=== PATIENT | male | born 1980 | race Caucasian/White ===

== ENCOUNTER 2022-09-21 07:39 | Outpatient (REF) | payer OTHER, SELFPAY ==
[2022-09-21 11:23] LABS: MANUAL DIFF FLAG NO
[2022-09-21 11:33] LABS: Appearance Urine Clear; Color Urine Yellow; Glucose Urine UA Negative (Negative); Leukocyte Esterase Urine Negative (Negative); Nitrite Urine Negative (Negative); PH 5.5 (5.0-9.0); Specific Gravity - Urine 1.025 (1.005-1.025); Urine Blood Negative (Negative); Urine Ketones Negative (Negative); Urine Protein Negative (Neg-Trace)
[2022-09-21 11:41] LABS: Basophils Percent Auto 0.8 % (0-2); Eosinophils Absolute Auto 0.2 X10*3/uL (0.0-0.4); Eosinophils Percent Auto 4.4 % (0-4); Hematocrit 46.4 % (42.0-52.0); Hemoglobin 15.2 g/dl (14.0-18.0); Imm Gran Abs Auto 0.02 X10*3/uL (0.00-0.03); Imm Gran Pct Auto 0.4 % (0.0-0.4); Lymphocytes Percent Auto 41.3 % (20-40); Mean Corpuscular HGB Conc 32.8 g/dl (31.0-36.0); Mean Corpuscular Hemoglobin 29.1 pg (27.0-33.0); Mean Corpuscular Volume 88.9 fL (80.0-98.0); Monocytes Absolute Auto 0.5 X10*3/uL (0.1-1.2); Monocytes Percent Auto 10.9 % (2-11); Neutrophils Percent Auto 42.2 % (45-73); Platelet Count 199 X10*3/uL (160-400); Red Blood Count 5.22 X10*6/uL (4.60-5.80); Red Cell Distribution Width 13.2 % (11.0-16.0); White Blood Count 4.8 X10*3/uL (4.8-10.8)
[2022-09-21 12:47] LABS: Alanine Aminotransferase 28 U/L (0-40); Albumin Level 4.4 g/dL (3.5-5.0); Alkaline Phosphatase 44 U/L (39-117); Anion Gap 10 (12-20); Aspartate Amino Transferase 19 U/L (5-37); Bilirubin Total 0.6 mg/dL (0.0-1.0); Blood Urea Nitrogen 26 mg/dL (9-16); Carbon Dioxide 24 mmol/L (22-29); Chloride 109 mmol/L (96-108); Cholesterol 274 mg/dL; Estimated Glomerular Filt Rate > 60; Glucose Fasting 104 mg/dL (60-99); HDL Cholesterol 59 mg/dL; LDL Cholesterol Calculated 197 mg/dl; Potassium 4.3 mmol/L (3.3-5.1); Sodium 139 mmol/L (135-145); Total Protein 6.7 g/dL (6.5-8.0); Triglycerides 92 mg/dL
== END 2022-09-21 07:40 | disposition home or self-care (01) ==
LOC: HO.HMGCLDS 07:39
PROVIDERS: PCP Nurse Practitioner Family; Visit Provider Nurse Practitioner Family
DX: Z00.00 Encounter for general adult medical examination without abnormal findings (principal)
CPT/HCPCS: 36415; 80053; 80061; 81003; 84443; 85025

== ENCOUNTER 2023-03-22 08:06 | Outpatient (REF) | payer OTHER, SELFPAY ==
[2023-03-22 11:48] LABS: Alanine Aminotransferase 26 U/L (0-40); Albumin Level 4.2 g/dL (3.5-5.0); Alkaline Phosphatase 51 U/L (39-117); Anion Gap 9 (12-20); Aspartate Amino Transferase 19 U/L (5-37); Bilirubin Total 0.7 mg/dL (0.0-1.0); Blood Urea Nitrogen 25 mg/dL (9-16); Carbon Dioxide 23 mmol/L (22-29); Chloride 111 mmol/L (96-108); Cholesterol 255 mg/dL; Estimated Glomerular Filt Rate > 60; Glucose Fasting 103 mg/dL (60-99); HDL Cholesterol 54 mg/dL; LDL Cholesterol Calculated 176 mg/dl; Potassium 4.3 mmol/L (3.3-5.1); Sodium 139 mmol/L (135-145); Total Protein 6.5 g/dL (6.5-8.0); Triglycerides 128 mg/dL
== END 2023-03-22 08:07 | disposition home or self-care (01) ==
LOC: HO.HMGCLDS 08:06
PROVIDERS: PCP Nurse Practitioner Family; Visit Provider Nurse Practitioner Family
DX: E78.5 Hyperlipidemia, unspecified (principal)
CPT/HCPCS: 36415; 80053; 80061

== ENCOUNTER 2023-05-31 16:37 | Outpatient (AMB) | payer OTHER, SELFPAY ==
--- NOTE | 2023-05-31 16:31 | A.OFFPC_ITS ---
Vital Signs 05/31/23 16:41 05/31/23 18:09 Height 6 ft 4 in Weight 213 lb 6 oz BMI 26.0 BP 140/92 H 138/84 Blood Pressure Location Rt brachial Position Sitting Pulse 73 Pulse Source Pulse Oximeter Pulse Oximetry (%) 96 Oxygen Delivery Method Room Air Intake Visit Reasons: Annual Physical Allergies No Known Allergies Allergy (Unverified 05/31/23 16:43) Medication List - Last [facility] 800 mg PO Q8H Tobacco use date assessed: 05/31/23 Dental Screening Dental Screen Date: 05/31/23 Did you have a dental visit in the last 12 months?: Yes Did you have a dental problem in the last 6 months where you did not have access to dental care?: No Was dental information given to patient?: Patient has dentist HPI Annual Physical HPI Details Pt is here for a PE. Will order labs. Hx of dyslipidemia: reordering labs to reassess. spoke with pt about role of statins, will await results PFSH Family History Father Hypertension Mother Hypertension Brother Testicular cancer Social History Housing: House Alcohol intake: current Alcohol intake frequency: a few times a week Alcohol type: beer Patient Tobacco Use Status: Current everyday Tobacco user Tobacco use type: Cigarette Cigarette Packs Per Day: 1 Cigarettes Per Day: 20 e-Cigarette/Vaping Use: Never Used Current occupational status: employed Cognitive needs: No Hearing needs: No Vision needs: No Questionnaire Thrive Questionnaire Date Thrive assessed: 12/08/22 DIANE-7 AMB Questionnaire DIANE-7 Date DIANE - 7 assessed: 12/08/22 Source: Developed by Drs. Shiv Walton, Theodora Mccoy, Huseyin Maciel and colleagues, with an educational alee from [employer]. Review of Systems Const Denies chills and Denies fever(s) Eyes Denies blurry vision ENT Denies vertigo, Denies dizziness and Denies sore throat Card Denies chest pain at rest, Denies chest pain with activity, Denies diaphoresis, Denies dyspnea and Denies dyspnea on exertion Resp Denies cough, Denies dyspnea, Denies dyspnea on exertion and Denies wheezing GI Denies abdominal pain, Denies melena, Denies hematochezia, Denies constipation, Denies diarrhea and Denies loose stools Denies hematuria Musc Denies numbness and Denies tingling Skin/Breast Denies lesions Neuro Denies vertigo, Denies dizziness, Denies numbness and Denies tingling Psych Denies anxiety, Denies depression, Denies homicidal ideation, Denies suicidal ideation and Denies other (substance abuse) Aller/Immun Denies wheezing Physical exam (Primary Care) Vital Signs: Last Vital Signs Pulse 73 05/31/23 16:41 BP 140/92 H 05/31/23 16:41 Pulse Ox 96 05/31/23 16:41 Oxygen Delivery Method Room Air 05/31/23 16:41 BMI result Body Mass Index 26.0 Tobacco/Smoking Status: Tobacco use Status Tobacco use date assessed 05/31/23 05/31/23 16:46 Patient Tobacco Use Status Current everyday Tobacco 05/31/23 16:31 Tobacco use type Cigarette 05/31/23 16:31 e-Cigarette/Vaping Use Never Used 05/31/23 16:31 Thrive Assessment: Date of Thrive Assessment Date Thrive assessed 12/08/22 05/31/23 16:31 Const General: cooperative Nutritional Appearance: well nourished Orientation/consciousness: patient oriented x3 HENMT Head: Yes normal to inspection, Yes normocephalic and Yes atraumatic Ears: TM's normal bilaterally Eyes General: appearance normal, both eyes and all related structures Alignment and Position: alignment normal and position normal Neck Neck: Yes normal visual inspection and Yes no lymphadenopathy Thyroid: Thyroid normal Resp Effort & Inspection: normal respiratory effort Auscultation: clear to auscultation bilaterally Cardio Rate: regular rate Rhythm: regular rhythm Heart sounds: S1 normal heart sound present, S2 normal heart sound present and no murmurs GI Palpation (GI): Soft to palpation and nontender Auscultation: normal bowel sounds Male General Exam: Yes normal external exam Penis: normal penis Scrotum: scrotum normal, testes descended bilaterally and no inguinal hernias Testes: no testicular mass Skin Rashes: no rashes Neuro General: patient oriented x3, moves all extremities, no focal motor deficits and deep tendon reflexes 2+ bilaterally Romberg Test: Negative Psych Appearance: grossly normal Mental Status: mental status grossly normal Speech and movement: Normal speech and movement present Affect: normal affect Attitude: cooperative Thought process: Normal thought process present Thought content: Normal thought content present Insight: Good insight present (Psych) Judgement: Good judgement present (Psych) Assessment and Plan Assessment & Plan (1) Physical exam: Code(s): Z00.00 - Encounter for general adult medical examination without abnormal findings (2) Smoker: Comment: counselled on the dangers of smoking and ways to quit Code(s): F17.200 - Nicotine dependence, unspecified, uncomplicated Orders: Orders Comprehensive [place]. Panel Fast Today Z00.00 - Encounter for general adult medical examination without abnormal findings Lipid Panel Today Z00.00 - Encounter for general adult medical examination without abnormal findings TSH reflex Free T4 Today Z00.00 - Encounter for general adult medical examination without abnormal findings Complete Blood Count Auto Diff Today Z00.00 - Encounter for general adult medical examination without abnormal findings UA CC w/rflx Micro + Cult Today Z00.00 - Encounter for general adult medical examination without abnormal findings Coding Level of Care Code Est Pt Prev Care 40-64y(91057) Diagnoses Physical exam Z00.00 Smoker F17.200
[2023-05-31 16:41] VITALS: BP 140/92; PULSE 73; O2SAT 96; BMI 26.0
[2023-05-31 18:09] VITALS: BP 138/84
== END 2023-05-31 17:02 | disposition home or self-care (01) ==
PROVIDERS: Visit Provider Nurse Practitioner Family
DX: Z00.00 Encounter for general adult medical examination without abnormal findings (principal); F17.200 Nicotine dependence, unspecified, uncomplicated
CPT/HCPCS: 99396

== ENCOUNTER 2024-02-21 08:32 | Outpatient (REF) | payer OTHER, SELFPAY ==
[2024-02-21 10:27] LABS: MANUAL DIFF FLAG NO
[2024-02-21 10:28] LABS: Appearance Urine Clear; Color Urine Yellow; Glucose Urine UA Negative (Negative); Leukocyte Esterase Urine Negative (Negative); Nitrite Urine Negative (Negative); Specific Gravity - Urine >= 1.030 (1.005-1.025); Urine Blood Negative (Negative); Urine Ketones Negative (Negative); Urine Protein Negative (Neg-Trace)
[2024-02-21 10:42] LABS: Basophils Percent Auto 0.6 % (0-2); Eosinophils Absolute Auto 0.2 X10*3/uL (0.0-0.4); Eosinophils Percent Auto 4.1 % (0-4); Hematocrit 43.4 % (42.0-52.0); Hemoglobin 14.7 g/dl (14.0-18.0); Imm Gran Abs Auto 0.02 X10*3/uL (0.00-0.03); Imm Gran Pct Auto 0.4 % (0.0-0.4); Lymphocytes Percent Auto 40.7 % (20-40); Mean Corpuscular HGB Conc 33.9 g/dl (31.0-36.0); Mean Corpuscular Hemoglobin 29.9 pg (27.0-33.0); Mean Corpuscular Volume 88.2 fL (80.0-98.0); Mean Platelet Volume 11.3 fL (9.4-12.4); Monocytes Absolute Auto 0.5 X10*3/uL (0.1-1.2); Monocytes Percent Auto 10.8 % (2-11); Neutrophils Absolute Auto 2.1 x10*3/uL (2.0-8.3); Neutrophils Percent Auto 43.4 % (45-73); Platelet Count 179 X10*3/uL (160-400); Red Blood Count 4.92 X10*6/uL (4.60-5.80); Red Cell Distribution Width 13.3 % (11.0-16.0); White Blood Count 4.9 X10*3/uL (4.8-10.8)
[2024-02-21 11:24] LABS: Alanine Aminotransferase 26 U/L (0-40); Albumin Level 4.2 g/dL (3.5-5.0); Alkaline Phosphatase 47 U/L (39-117); Anion Gap 12 (12-20); Aspartate Amino Transferase 18 U/L (5-37); Bilirubin Total 0.6 mg/dL (0.0-1.0); Blood Urea Nitrogen 27 mg/dL (9-16); Calcium 9.1 mg/dL (8.4-10.2); Carbon Dioxide 21 mmol/L (22-29); Chloride 110 mmol/L (96-108); Cholesterol 226 mg/dL (<200); Estimated Glomerular Filt Rate > 60; Glucose Fasting 106 mg/dL (60-99); HDL Cholesterol 52 mg/dL (>40); LDL Cholesterol Calculated 155 mg/dL (<100); Potassium 4.3 mmol/L (3.3-5.1); Sodium 139 mmol/L (135-145); Total Protein 6.7 g/dL (6.5-8.0); Triglycerides 98 mg/dL (<150)
== END 2024-02-21 08:33 | disposition home or self-care (01) ==
LOC: HO.HMGCLDS 08:32
PROVIDERS: PCP Nurse Practitioner Family; Visit Provider Nurse Practitioner Family
DX: Z00.00 Encounter for general adult medical examination without abnormal findings (principal); E78.5 Hyperlipidemia, unspecified
CPT/HCPCS: 36415; 80053; 80061; 81003; 84443; 85025

== ENCOUNTER 2024-05-28 12:33 | Outpatient (AMB) | payer OTHER, SELFPAY ==
[2024-05-28 12:34] VITALS: BP 120/78; PULSE 78; O2SAT 98; BMI 27.5
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
== END 2024-05-28 13:46 | disposition home or self-care (01) ==
PROVIDERS: PCP Nurse Practitioner Family; Visit Provider Nurse Practitioner Family
DX: S32.402A Unspecified fracture of left acetabulum, initial encounter for closed fracture (principal); S72.002A Fracture of unspecified part of neck of left femur, initial encounter for closed fracture; S72.06 Articular fracture of head of femur; Z04.3 Encounter for examination and observation following other accident; S22.31XA Fracture of one rib, right side, initial encounter for closed fracture; S82.001A Unspecified fracture of right patella, initial encounter for closed fracture; S61.210A Laceration without foreign body of right index finger without damage to nail, initial encounter
CPT/HCPCS: 99214

== ENCOUNTER 2024-06-28 14:13 | Outpatient (AMB) | payer OTHER, SELFPAY ==
--- NOTE | 2024-06-28 14:15 | MHC.OFFWIV ---
Intake Vital Signs 06/28/24 14:21 Height 6 ft 4 in Weight 226 lb BMI 27.5 BP 126/80 Blood Pressure Location Rt brachial Position Sitting Pulse 87 Pulse Source Pulse Oximeter Pulse Oximetry (%) 98 Oxygen Delivery Method Room Air Intake Visit Reasons: EP-body rash Intake Note: Patient here for rash in groin that has been present for a few weeks. Patient Tobacco Use Status: Current everyday Tobacco user Allergies No Known Allergies Allergy (Verified 06/28/24 14:20) Do you need a note to return to daycare/school/sports/work: No HPI HPI Comments History of Present Illness Details Patient is a 44-year-old male complaining of a couple of weeks of a itchy burning rash in his groin area. States he just had knee surgery and hip surgery and has been in the hospital and sitting around a lot and did not have a shower for a week so he feels like that is how the rash started, he thinks it is a heat rash and he put some triamcinolone cream on it which seemed to help a little bit but it is still itchy and burning. He denies any fevers [facility] Medical History (Updated 06/28/24 @ 14:47 by Akilah Leiva PA-C) Closed displaced articular fracture of head of femur Laceration of right index finger Pneumomediastinum Rib fracture Right patella fracture Hip fracture, left Finger laceration Facial laceration Surgical History (Updated 05/28/24 @ 13:55 by EDOUARD Barboza) History of total left hip replacement Family History Father Hypertension Mother Hypertension Brother Testicular cancer Social History Housing: House Alcohol intake: current Alcohol intake frequency: a few times a week Alcohol type: beer Patient Tobacco Use Status: Current everyday Tobacco user Tobacco use type: Cigarette Cigarette Packs Per Day: 1 Cigarettes Per Day: 20 e-Cigarette/Vaping Use: Never Used Current occupational status: employed Cognitive needs: No Hearing needs: No Vision needs: No Review of Systems Const All systems reviewed & are unremarkable except as noted in HPI and below Physical Exam Vital Signs: Last Vital Signs Pulse 87 06/28/24 14:21 BP 126/80 06/28/24 14:21 Pulse Ox 98 06/28/24 14:21 Oxygen Delivery Method Room Air 06/28/24 14:21 BMI result Body Mass Index 27.5 Const General: cooperative, healthy appearing, comfortable, no acute distress and well developed Orientation/consciousness: patient oriented x3 Limitations: no limitations HEENT Head: Yes normal to inspection Ears: hearing grossly normal bilaterally General nose exam: Normal external nose present Face and sinus: Yes normal facial exam Eyes General: appearance normal, both eyes and all related structures Neck Neck: Yes normal visual inspection and Yes full ROM Resp Effort & Inspection: normal respiratory effort and able to speak in complete sentences Skin Other: Bilateral inguinal area has a flat erythematous area extending onto the thighs Neuro General: patient oriented x3 Extrem General: Yes normal to inspection Assessment & Plan Assessment & Plan (1) Tinea cruris: Code(s): B35.6 - Tinea cruris Plan: Recommending after the shower that he dry the area thoroughly and then apply miconazole powder, he could also use the cream if he chooses. Twice daily, educated patient that it could take a while for this to go away but he should be consistent and persistent with the miconazole. If it does not go away or if it gets worse, he should follow up with his PCP. Plan See above Coding Level of Care Code Est Pt Level 3 (37718) Diagnoses Tinea cruris B35.6
[2024-06-28 14:21] VITALS: BP 126/80; PULSE 87; O2SAT 98; BMI 27.5
== END 2024-06-28 14:45 | disposition home or self-care (01) ==
PROVIDERS: PCP Nurse Practitioner Family; Visit Provider Physician Assistant
DX: B35.6 Tinea cruris (principal)
CPT/HCPCS: 99213

== ENCOUNTER 2024-07-08 16:09 | Outpatient (AMB) | payer OTHER, SELFPAY ==
[2024-07-08 16:11] VITALS: BP 130/80; PULSE 82; O2SAT 98; BMI 27.9
--- NOTE | 2024-07-08 16:11 | A.OFFPC_ITS ---
Vital Signs 07/08/24 16:11 Height 6 ft 4 in Weight 229 lb BMI 27.9 BP 130/80 Blood Pressure Location Rt brachial Position Sitting Pulse 82 Pulse Source Pulse Oximeter Pulse Oximetry (%) 98 Intake Visit Reasons: PE Intake Note: pt is here for his PE Travel Nurse Required: No Accompanied by: Self / Same As Patient Allergies No Known Allergies Allergy (Verified 07/08/24 17:00) Medication List - Last Reconciled 07/08/24 by EDOUARD Barboza baclofen 20 mg PO TID 30 days gabapentin 600 mg (2 x 300 mg) PO Q8H PRN 30 days ibuprofen 800 mg PO Q8H PRN 30 days Tobacco use date assessed: 05/28/24 Dental Screening Dental Screen Date: 05/28/24 HPI PE HPI Details Pt is here for a PE. Will order labs. Due for colon screen, will refer to GI. Pt is following up with ortho. He reports that his LLE is longer than his RLE. He is unable to fully extend at his left knee when his RLE is fully extended, has to keep some left knee flexion to balance. Pt reports ongoing lower back pain. He denies radicular symptoms down his lower extremities. Will order XR. Denies any signs of cauda equina. Pt also reports ongoing left hip and right knee pain (recent surgerys) [facility] Medical History Closed displaced articular fracture of head of femur Laceration of right index finger Pneumomediastinum Rib fracture Right patella fracture Hip fracture, left Finger laceration Facial laceration Surgical History History of total left hip replacement Family History Father Hypertension Mother Hypertension Brother Testicular cancer Social History Housing: House Alcohol intake: current Alcohol intake frequency: a few times a week Alcohol type: beer Patient Tobacco Use Status: Current everyday Tobacco user Tobacco use type: Cigarette Cigarette Packs Per Day: 1 Cigarettes Per Day: 20 e-Cigarette/Vaping Use: Never Used Current occupational status: employed Cognitive needs: No Hearing needs: No Vision needs: No Questionnaire PHQ-9 Over the last 2 weeks, how often have you been bothered by any of the following problems? 1. Little interest or pleasure in doing things: not at all 2. Feeling down, depressed, or hopeless: not at all 3. Trouble falling or staying asleep, or sleeping too much: several days 4. Feeling tired or having little energy: several days 5. Poor appetite or overeating: not at all 6. Feeling bad about yourself - or that you are a failure or have let yourself or your family down: not at all 7. Trouble concentrating on things, such as reading the newspaper or watching television: not at all 8. Moving or speaking so slowly that other people could have noticed. Or the opposite - being so fidgety or restless that you have been moving around a lot more than usual: not at all 9. Thoughts that you would be better off or of hurting yourself in some way: not at all Total score: 2 Depression Screening Interpretation: Negative Depression Screening Done: Yes [id number] - PHQ-9 Billing: Yes Source: Developed by Drs. Shiv Walton, Theodora Mccoy, Huseyin Maciel and colleagues, with an educational alee from [employer]. Thrive Questionnaire Date Thrive assessed: 07/08/24 I am a: Patient What is your living situation today?: I have a steady place to live Within the past 12 months, did the food you bought not last and you didn't have the money to get more?: Never true Within the past 12 months, did you worry whether your food would run out before you got money to buy more?: Never true Do you have trouble paying for medicines?: No Do you have trouble getting transportation to medical appointments?: No Do you have trouble paying your heating and electricity bill?: No Do you have trouble taking care of your child, family member or friend?: No Do you have trouble with day-to-day activities such as bathing, preparing meals, shopping, managing finances, etc.?: No Are you currently unemployed and looking for a job?: No Are you interested in more education?: No Please select the resources that you would like help with: None Currently or been in a relationship where the following occur: No concerns reported THRIVE Score: 0 DIANE-7 AMB Questionnaire DIANE-7 Date DIANE - 7 assessed: 05/28/24 Source: Developed by Drs. Shiv Walton, Theodora Mccoy, Huseyin Maciel and colleagues, with an educational alee from [employer]. Review of Systems Const Denies chills and Denies fever(s) Eyes Denies blurry vision ENT Denies vertigo, Denies dizziness and Denies sore throat Card Denies chest pain at rest, Denies chest pain with activity, Denies diaphoresis, Denies dyspnea and Denies dyspnea on exertion Resp Denies cough, Denies dyspnea, Denies dyspnea on exertion and Denies wheezing GI Denies abdominal pain, Denies melena, Denies hematochezia, Denies constipation, Denies diarrhea and Denies loose stools Denies hematuria Musc Denies numbness and Denies tingling Skin/Breast Denies lesions Neuro Denies vertigo, Denies dizziness, Denies numbness and Denies tingling Psych Denies anxiety, Denies depression, Denies homicidal ideation, Denies suicidal ideation and Denies other (substance abuse) Aller/Immun Denies wheezing Physical exam (Primary Care) Vital Signs: Last Vital Signs Pulse 82 07/08/24 16:11 BP 130/80 07/08/24 16:11 Pulse Ox 98 07/08/24 16:11 BMI result Body Mass Index 27.9 Tobacco/Smoking Status: Tobacco use Status Tobacco use date assessed 05/28/24 07/08/24 16:15 Patient Tobacco Use Status Current everyday Tobacco 07/08/24 16:15 Tobacco use type Cigarette 07/08/24 16:15 e-Cigarette/Vaping Use Never Used 07/08/24 16:15 PHQ-9: PHQ-9 Score PHQ-9: Total score 2 07/08/24 16:30 Depression Screening Interpretation: Negative Thrive Assessment: Date of Thrive Assessment Date Thrive assessed 07/08/24 07/08/24 16:18 Currently or been in a relationship where the following occur: No concerns reported Const Other: using cane General: cooperative Nutritional Appearance: well nourished Orientation/consciousness: patient oriented x3 Limitations: ambulation with cane HENMT Head: Yes normal to inspection, Yes normocephalic and Yes atraumatic Ears: TM's normal bilaterally Eyes General: appearance normal, both eyes and all related structures Alignment and Position: alignment normal and position normal Neck Neck: Yes normal visual inspection, Yes no lymphadenopathy and Yes supple Resp Effort & Inspection: normal respiratory effort Auscultation: clear to auscultation bilaterally Cardio Rate: regular rate Rhythm: regular rhythm Heart sounds: S1 normal heart sound present, S2 normal heart sound present and no murmurs GI Palpation (GI): Soft to palpation and nontender Auscultation: normal bowel sounds Male General Exam: Yes normal external exam Penis: normal penis Scrotum: scrotum normal, testes descended bilaterally and no inguinal hernias Testes: no testicular mass Skin Rashes: no rashes Neuro General: patient oriented x3, moves all extremities, no focal motor deficits and deep tendon reflexes 2+ bilaterally Romberg Test: Negative Extrem Other: right index finger MCP joint slightly swollen, able to make a fist, scar to left hip, well approximated, scar to anterior aspect of right knee, slight swelling Psych Appearance: grossly normal Mental Status: mental status grossly normal Speech and movement: Normal speech and movement present Affect: normal affect Attitude: cooperative Thought process: Normal thought process present Thought content: Normal thought content present Insight: Good insight present (Psych) Judgement: Good judgement present (Psych) Assessment and Plan Assessment & Plan (1) Encounter for routine adult physical exam with abnormal findings: Code(s): Z00.01 - Encounter for general adult medical examination with abnormal findings Plan: Labs ordered (2) Screening for colon cancer: Code(s): Z12.11 - Encounter for screening for malignant neoplasm of colon Plan: Referred to GI (3) Lower back pain: Code(s): M54.50 - Low back pain, unspecified Plan: XR ordered (4) Hip fracture, left: Code(s): S72.002A - Fracture of unspecified part of neck of left femur, initial encounter for closed fracture Plan: follow up with ortho (5) Closed displaced articular fracture of head of femur: Code(s): S72.063A - Displaced articular fracture of head of unspecified femur, initial encounter for closed fracture Plan: follow up with ortho (6) Laceration of right index finger: Code(s): S61.210A - Laceration without foreign body of right index finger without damage to nail, initial encounter Plan: full ROM noted, able to make a fist Plan The patient agreed to the use of a biomedical manager for this encounter. Scribed for SU Felipe-BRENT by Macey Lazcano biomedical manager, on 07/08/2024 at 16:30 EST. Orders: Orders UA CC w/rflx Micro + Cult Today Z00.01 - Encounter for general adult medical examination with abnormal findings Lipid Panel Today Z00.01 - Encounter for general adult medical examination with abnormal findings XR lumbar spine 2-3V Today M54.50 - Low back pain, unspecified Complete Blood Count Auto Diff Today Z00.01 - Encounter for general adult medical examination with abnormal findings Comprehensive [place]. Panel Fast Today Z00.01 - Encounter for general adult medical examination with abnormal findings TSH reflex Free T4 Today Z00.01 - Encounter for general adult medical examination with abnormal findings Referrals Gastroenterology Referral Z12.11 - Encounter for screening for malignant neoplasm of colon Coding Level of Care Code Est Pt Prev Care 40-64y([id number]) Diagnoses Encounter for routine adult physical exam with abnormal findings Z00.01 Screening for colon cancer Z12.11 Lower back pain M54.50 Hip fracture, left S72.002A Closed displaced articular fracture of head of femur S72.063A Laceration of right index finger S61.210A
== END 2024-07-08 16:52 | disposition home or self-care (01) ==
PROVIDERS: PCP Nurse Practitioner Family; Visit Provider Nurse Practitioner Family
DX: Z00.00 Encounter for general adult medical examination without abnormal findings (principal); S72.002A Fracture of unspecified part of neck of left femur, initial encounter for closed fracture; S72.06 Articular fracture of head of femur; S61.210A Laceration without foreign body of right index finger without damage to nail, initial encounter; Z12.11 Encounter for screening for malignant neoplasm of colon; M54.50 Low back pain, unspecified

== ENCOUNTER → 2024-07-08 16:09 | Outpatient (BNVA) | payer OTHER, SELFPAY | PROVIDERS: PCP Nurse Practitioner Family; Visit Provider Nurse Practitioner Family | DX: Z00.01 Encounter for general adult medical examination with abnormal findings (principal); M54.50 Low back pain, unspecified; S72.002A Fracture of unspecified part of neck of left femur, initial encounter for closed fracture; S72.06 Articular fracture of head of femur; S61.210A Laceration without foreign body of right index finger without damage to nail, initial encounter | CPT/HCPCS: 96127 ==

== ENCOUNTER 2024-09-09 10:44 | Outpatient (REF) | payer OTHER, SELFPAY ==
[2024-09-09 13:27] LABS: MANUAL DIFF FLAG NO
[2024-09-09 13:34] LABS: Basophils Percent Auto 0.9 % (0-2); Eosinophils Absolute Auto 0.2 X10*3/uL (0.0-0.4); Eosinophils Percent Auto 4.6 % (0-4); Hematocrit 47.9 % (42.0-52.0); Imm Gran Abs Auto 0.01 X10*3/uL (0.00-0.03); Imm Gran Pct Auto 0.2 % (0.0-0.4); Lymphocytes Percent Auto 43.2 % (20-40); Mean Corpuscular HGB Conc 33.4 g/dl (31.0-36.0); Mean Corpuscular Hemoglobin 27.9 pg (27.0-33.0); Mean Corpuscular Volume 83.4 fL (80.0-98.0); Mean Platelet Volume 11.1 fL (9.4-12.4); Monocytes Absolute Auto 0.5 X10*3/uL (0.1-1.2); Monocytes Percent Auto 9.9 % (2-11); Neutrophils Absolute Auto 1.9 x10*3/uL (2.0-8.3); Neutrophils Percent Auto 41.2 % (45-73); Platelet Count 172 X10*3/uL (160-400); Red Blood Count 5.74 X10*6/uL (4.60-5.80); Red Cell Distribution Width 14.2 % (11.0-16.0); White Blood Count 4.6 X10*3/uL (4.8-10.8)
[2024-09-09 14:03] LABS: Alanine Aminotransferase 29 U/L (0-40); Albumin Level 4.4 g/dL (3.5-5.0); Alkaline Phosphatase 69 U/L (39-117); Anion Gap 12 (12-20); Aspartate Amino Transferase 20 U/L (5-37); Bilirubin Total 0.7 mg/dL (0.0-1.0); Blood Urea Nitrogen 23 mg/dL (9-16); Calcium 9.5 mg/dL (8.4-10.2); Carbon Dioxide 23 mmol/L (22-29); Chloride 107 mmol/L (96-108); Estimated Glomerular Filt Rate > 60; Glucose Random 95 mg/dL (60-115); Potassium 3.7 mmol/L (3.3-5.1); Sodium 138 mmol/L (135-145); Total Protein 6.8 g/dL (6.5-8.0)
[2024-09-09 14:19] LABS: TSH reflex Free T4 0.85 uIU/mL (0.32-4.0)
[2024-09-10 13:03] LABS: Lyme Blot 5.07 index
[2024-09-10 23:53] LABS: A. Phagocytphilium DNA,RT-PCR NOT DETECTED (NOT DETECTED); Babesia Microti DNA, RT-PCR NOT DETECTED (NOT DETECTED); Borrelia Miyamotoi,DNA RT-PCR NOT DETECTED (NOT DETECTED); E.Chaffeensis DNA RT-PCR NOT DETECTED (NOT DETECTED); Lyme(Borrelia ssp)DNA RT-PCR NOT DETECTED (NOT DETECTED)
[2024-09-11 09:07] LABS: Lyme Abs Screen POSITIVE
[2024-09-11 17:32] LABS: 18 KD (IgG) Band REACTIVE; 23 KD (IgG) Band REACTIVE; 23 KD (IgM) Band REACTIVE; 28 KD (IgG) Band NON-REACTIVE; 30 KD (IgG) Band NON-REACTIVE; 39 KD (IgM) Band NON-REACTIVE; 39KD (IgG) Band REACTIVE; 41 KD (IgM) Band NON-REACTIVE; 41KD (IgG) Band REACTIVE; 45 KD (IgG) Band NON-REACTIVE; 58 KD (IgG) Band REACTIVE; 66 KD (IgG) Band NON-REACTIVE; 93 KD (IgG) Band NON-REACTIVE; Lyme IgG Blot Interp POSITIVE (NEGATIVE); Lyme IgM Blot Interp NEGATIVE (NEGATIVE)
== END 2024-09-09 10:45 | disposition home or self-care (01) ==
LOC: HO.HMGCLDS 10:44
PROVIDERS: PCP Nurse Practitioner Family; Visit Provider Nurse Practitioner Family
DX: R53.83 Other fatigue (principal)
CPT/HCPCS: 36415; 80053; 84443; 85025; 86617; 86618; 87468; 87469; 87478; 87484; 87798

== ENCOUNTER 2024-09-30 14:05 | Outpatient (AMB) | payer OTHER, SELFPAY ==
--- OUTSIDE RECORDS SUMMARY | 2024-09-30 14:10 | XMS_ITS ---
Author Name [facility] Organization Unknown Results Test Name/Text Value Interpretation Date Range Source Magnesium SerPl-mCnc 2.3mg/dL Normal [id number] 1.6 - 2.7 [facility] Phosphate SerPl-mCnc 4.4mg/dL Normal [id number] 2.7 - 4.5 [facility] Calcium SerPl-mCnc 8.4mg/dL Below low normal [id number] 8 .7 - 10.5 [facility] BUN SerPl-mCnc 18mg/dL Normal [id number] 8 - 21 HH CCT Creat SerPl-mCnc 0.8mg/dL Normal [id number] 0.5 - 1.3 [facility] GFR/BSA.pred SerPlBld BLY-BZJ-WwSOxa 90 Normal [id number] 59 - [facility] Chloride SerPl-sCnc 103mmol/L Normal [id number] 98 - 10 7 [facility] BUN/Creat SerPl 23Ratio Normal [id number] 10 - 25 H [facility] CO2 SerPl-sCnc 25mmol/L Normal [id number] 22 - 33 HH CCT Anion Gap Bld-sCnc 9 Normal [id number] 7 - 17 [facility] Potassium SerPl-sCnc 4.2mmol/L Normal [id number] 3.4 - 5.3 [facility] Glucose SerPl-mCnc 112mg/dL Above high normal [id number] 65 - 99 [facility] Sodium SerPl-sCnc 137mmol/L Normal [id number] 136 - 145 [facility] RBC num Bld Auto 2.46Mil/uL Below low normal [id number] 4. 5 - 6.2 [facility] RDW RBC Auto-Rto 13.8% Normal [id number] 11.5 - 14. 5 [facility] PMV Bld Auto 10.2fL Normal [id number] 7.5 - 12.[address] MCH RBC Qn Auto 29.3pg Normal [id number] 26 - 34 H [facility] WBC num Bld Auto 5.9Thou/uL Normal [id number] 4 - 11 [facility] Platelet num Bld Auto 211Thou/uL Normal [id number] 150 - 450 [facility] MCHC RBC Auto-mCnc 33.3g/dL Normal [id number] 30 - 36 [facility] Hct VFr Bld Auto 21.6% Below low normal [id number] 39 - 54 [facility] MCV RBC Auto 88fL Normal [id number] 80 - 100 [facility] T Hgb Bld-mCnc 7.2g/dL Below low normal [id number] 13 - 17 .7 [facility] RBC num Bld Auto 2.37Mil/uL Below low normal [id number] 4. 5 - 6.2 [facility] RDW RBC Auto-Rto 13.9% Normal [id number] 11.5 - 14. 5 [facility] PMV Bld Auto 10.9fL Normal [id number] 7.5 - 12.[address] MCH RBC Qn Auto 30pg Normal [id number] 26 - 34 H [facility] WBC num Bld Auto 6.3Thou/uL Normal [id number] 4 - 11 [facility] Platelet num Bld Auto 199Thou/uL Normal [id number] 150 - 450 [facility] MCHC RBC Auto-mCnc 32.7g/dL Normal [id number] 30 - 36 [facility] Hct VFr Bld Auto 21.7% Below low normal [id number] 39 - 54 [facility] MCV RBC Auto 92fL Normal [id number] 80 - 100 [facility] T Hgb Bld-mCnc 7.1g/dL Below low normal [id number] 13 - 17 .7 [facility] RBC num Bld Auto 2.42Mil/uL Below low normal [id number] 4. 5 - 6.2 [facility] RDW RBC Auto-Rto 13.8% Normal [id number] 11.5 - 14. 5 [facility] PMV Bld Auto 10.2fL Normal [id number] 7.5 - 12.[address] MCH RBC Qn Auto 29.8pg Normal [id number] 26 - 34 H [facility] WBC num Bld Auto 7.6Thou/uL Normal [id number] 4 - 11 [facility] Platelet num Bld Auto 187Thou/uL Normal [id number] 150 - 450 [facility]CT MCHC RBC Auto-mCnc 33g/dL Normal [id number] 30 - 36 [facility] Hct VFr Bld Auto 21.8% Below low normal [id number] 39 - 54 [facility]CT MCV RBC Auto 90fL Normal [id number] 80 - 100 [facility] T Hgb Bld-mCnc 7.2g/dL Below low normal [id number] 13 - 17 .7 [facility] RBC num Bld Auto 2.52Mil/uL Below low normal [id number] 4. 5 - 6.2 [facility] RDW RBC Auto-Rto 13.4% Normal [id number] 11.5 - 14. 5 [facility] PMV Bld Auto 10.6fL Normal [id number] 7.5 - 12.[address] MCH RBC Qn Auto 29.8pg Normal [id number] 26 - 34 H [facility]CT WBC num Bld Auto 8.4Thou/uL Normal [id number] 4 - 11 [facility] Platelet num Bld Auto 155Thou/uL Normal [id number] 150 - 450 [facility]CT MCHC RBC Auto-mCnc 33.2g/dL Normal [id number] 30 - 36 [facility] Hct VFr Bld Auto 22.6% Below low normal [id number] 39 - 54 [facility] MCV RBC Auto 90fL Normal [id number] 80 - 100 [facility] T Hgb Bld-mCnc 7.5g/dL Below low normal [id number] 13 - 17 .7 [facility]CT Phosphate SerPl-mCnc 2.7mg/dL Normal [id number] 2.7 - 4.5 [facility]CT Calcium SerPl-mCnc 7.8mg/dL Below low normal [id number] 8 .7 - 10.5 [facility]CT BUN SerPl-mCnc 14mg/dL Normal [id number] 8 - 21 HH CCT Creat SerPl-mCnc 0.9mg/dL Normal [id number] 0.5 - 1.3 [facility]CT GFR/BSA.pred SerPlBld ETR-TIC-LoLMts 90 Normal [id number] 59 - HHCCT Chloride SerPl-sCnc 107mmol/L Normal [id number] 98 - 10 7 [facility]CT BUN/Creat SerPl 16Ratio Normal [id number] 10 - 25 H [facility]CT CO2 SerPl-sCnc 26mmol/L Normal [id number] 22 - 33 HH CCT Anion Gap Bld-sCnc 8 Normal [id number] 7 - 17 [facility]CT Potassium SerPl-sCnc 3.9mmol/L Normal [id number] 3.4 - 5.3 [facility] Glucose SerPl-mCnc 130mg/dL Above high normal [id number] 65 - 99 [facility] Sodium SerPl-sCnc 141mmol/L Normal [id number] 136 - 145 [facility]CT Magnesium SerPl-mCnc 2.4mg/dL Normal [id number] 1.6 - 2.7 [facility]CT RBC num Bld Auto 2.7Mil/uL Below low normal [id number] 4.5 - 6.2 [facility]CT RDW RBC Auto-Rto 13.6% Normal [id number] 11.5 - 14. 5 [facility]CT PMV Bld Auto 10.5fL Normal [id number] 7.5 - 12.[address] MCH RBC Qn Auto 29.6pg Normal [id number] 26 - 34 H HCCT WBC num Bld Auto 8.9Thou/uL Normal [id number] 4 - 11 [facility] Platelet num Bld Auto 161Thou/uL Normal [id number] 150 - 450 [facility]CT MCHC RBC Auto-mCnc 33.3g/dL Normal [id number] 30 - 36 [facility]CT Hct VFr Bld Auto 24% Below low normal [id number] 39 - 54 [facility]CT MCV RBC Auto 89fL Normal [id number] 80 - 100 [facility] T Hgb Bld-mCnc 8g/dL Below low normal [id number] 13 - 17 .7 [facility]CT Phosphate SerPl-mCnc 2.8mg/dL Normal [id number] 2.7 - 4.5 [facility]CT Calcium SerPl-mCnc 7.9mg/dL Below low normal [id number] 8 .7 - 10.5 [facility]CT BUN SerPl-mCnc 15mg/dL Normal [id number] 8 - 21 HH CCT Creat SerPl-mCnc 0.9mg/dL Normal [id number] 0.5 - 1.3 [facility]CT GFR/BSA.pred SerPlBld TPF-PWF-YvMInf 90 Normal [id number] 59 - HHCCT Chloride SerPl-sCnc 104mmol/L Normal [id number] 98 - 10 7 [facility]CT BUN/Creat SerPl 17Ratio Normal [id number] 10 - 25 H HCCT CO2 SerPl-sCnc 24mmol/L Normal [id number] 22 - 33 HH CCT Anion Gap Bld-sCnc 9 Normal [id number] 7 - 17 [facility]CT Potassium SerPl-sCnc 4.2mmol/L Normal [id number] 3.4 - 5.3 [facility]CT Glucose SerPl-mCnc 154mg/dL Above high normal [id number] 65 - 99 [facility]CT Sodium SerPl-sCnc 137mmol/L Normal [id number] 136 - 145 [facility]CT Phosphate SerPl-mCnc 2.5mg/dL Below low normal [id number] 2.7 - 4.5 [facility]CT Magnesium SerPl-mCnc 2.1mg/dL Normal [id number] 1.6 - 2.7 [facility]CT RBC num Bld Auto 3.06Mil/uL Below low normal [id number] 4. 5 - 6.2 [facility]CT RDW RBC Auto-Rto 13.2% Normal [id number] 11.5 - 14. 5 [facility] PMV Bld Auto 11.2fL Normal [id number] 7.5 - 12.[address] MCH RBC Qn Auto 29.7pg Normal [id number] 26 - 34 H HCCT WBC num Bld Auto 8.7Thou/uL Normal [id number] 4 - 11 [facility] Platelet num Bld Auto 136Thou/uL Below low normal [id number] 150 - 450 [facility]CT MCHC RBC Auto-mCnc 33.5g/dL Normal [id number] 30 - 36 [facility]CT Hct VFr Bld Auto 27.2% Below low normal [id number] 39 - 54 [facility]CT MCV RBC Auto 89fL Normal [id number] 80 - 100 [facility] T Hgb Bld-mCnc 9.1g/dL Below low normal [id number] 13 - 17 .7 H[facility]CT Result Normal [id number] - [facility]CT Calcium SerPl-mCnc 8.4mg/dL Below low normal [id number] 8 .7 - 10.5 [facility]CT BUN SerPl-mCnc 16mg/dL Normal [id number] 8 - 21 HH CCT Creat SerPl-mCnc 1mg/dL Normal [id number] 0.5 - 1.3 [facility]CT GFR/BSA.pred SerPlBld LUH-JPO-SjQDeh 90 Normal [id number] 59 - HHCCT Chloride SerPl-sCnc 103mmol/L Normal [id number] 98 - 10 7 H[facility]CT BUN/Creat SerPl 16Ratio Normal [id number] 10 - 25 H HCCT CO2 SerPl-sCnc 24mmol/L Normal [id number] 22 - 33 HH CCT Anion Gap Bld-sCnc 8 Normal [id number] 7 - 17 [facility]CT Potassium SerPl-sCnc 4.1mmol/L Normal [id number] 3.4 - 5.3 [facility]CT Glucose SerPl-mCnc 111mg/dL Above high normal [id number] 65 - 99 [facility]CT Sodium SerPl-sCnc 135mmol/L Below low normal [id number] 13 6 - 145 H[facility]CT INR PPP 1 Normal [id number] HHCCT Prothrombin time 11.5seconds Normal [id number] 10 - 13. 5 [facility] RBC num Bld Auto 4.02Mil/uL Below low normal [id number] 4. 5 - 6.2 [facility]CT RDW RBC Auto-Rto 13.4% Normal [id number] 11.5 - 14. 5 [facility]CT PMV Bld Auto 11fL Normal [id number] 7.5 - 12.[address] MCH RBC Qn Auto 29.4pg Normal [id number] 26 - 34 H HCCT WBC num Bld Auto 7.5Thou/uL Normal [id number] 4 - 11 [facility]CT Platelet num Bld Auto 139Thou/uL Below low normal [id number] 150 - 450 [facility]CT MCHC RBC Auto-mCnc 32.8g/dL Normal [id number] 30 - 36 HHCCT Hct VFr Bld Auto 36% Below low normal [id number] 39 - 54 H[facility]CT MCV RBC Auto 90fL Normal [id number] 80 - 100 [facility] T Hgb Bld-mCnc 11.8g/dL Below low normal [id number] 13 - 17 .7 HHCCT Anticoagulant OTHER AGENT OR UNKNOWN Normal [id number] HHCCT 25(OH)D3 SerPl-mCnc 19ng/mL Below low normal [id number] 30 - 100 [facility]CT Calcium SerPl-mCnc 8.2mg/dL Below low normal [id number] 8 .7 - 10.5 H[facility]CT BUN SerPl-mCnc 19mg/dL Normal [id number] 8 - 21 HH CCT Creat SerPl-mCnc 1mg/dL Normal 0.5 - 1.3 HHCCT GFR/BSA.pred SerPlBld QRX-COM-NrIFyc 90 Normal [id number] 59 - HHCCT Chloride SerPl-sCnc 106mmol/L Normal [id number] 98 - 10 7 H[facility]CT BUN/Creat SerPl 19Ratio Normal [id number] 10 - 25 H HCCT CO2 SerPl-sCnc 21mmol/L Below low normal [id number] 22 - 33 HHCCT Anion Gap Bld-sCnc 12 Normal [id number] 7 - 17 H[facility]CT Potassium SerPl-sCnc 4mmol/L Normal [id number] 3.4 - 5.3 H[facility]CT Glucose SerPl-mCnc 130mg/dL Above high normal [id number] 65 - 99 [facility]CT Sodium SerPl-sCnc 139mmol/L Normal [id number] 136 - 145 H[facility]CT Transferrin SerPl-mCnc 207mg/dL Normal [id number] 200 - 360 H[facility]CT Prealb SerPl-mCnc 23mg/dL Normal [id number] 20 - 40 HHCCT Albumin SerPl-mCnc 3.8g/dL Normal 3.5 - 5 HHCCT INR PPP 1.1 Normal [id number] HHCCT Prothrombin time 12.1seconds Normal [id number] 10 - 13. 5 HHCCT Neutrophils num Bld Auto 6.3Thou/uL Normal [id number] 2 - 7.5 HHCCT Eosinophil/leuk NFr Bld Auto 0.1% Normal [id number] HHCCT Monocytes num Bld Auto 1.01Thou/uL Normal [id number] 0.2 - 1.5 HHCCT Eosinophil num Bld Auto 0.01Thou/uL Normal [id number] 0 - 0.7 HHCCT Basophils/leuk NFr Bld Auto 0.2% Normal [id number] HHCCT Basophils num Bld Auto 0.02Thou/uL Normal [id number] 0 - 0.2 H[facility]CT Neutrophils/leuk NFr Bld Auto 71.5% Normal [id number] HHCCT Monocytes/leuk NFr Bld Auto 11.5% Normal [id number] HHCCT Lymphocytes/leuk NFr Bld Auto 16.5% Normal [id number] HHCCT Lymphocytes num Bld Auto 1.45Thou/uL Below low normal [id number] 1.5 - 4.5 HHCCT Imm Granulocytes/leuk NFr Bld Auto 0.2% Normal [id number] HHCCT Imm Granulocytes num Bld Auto 0.02Thou/uL Normal [id number] 0 - 0.1 H[facility]CT RBC num Bld Auto 4.34Mil/uL Below low normal [id number] 4. 5 - 6.2 H[facility]CT RDW RBC Auto-Rto 13.5% Normal [id number] 11.5 - 14. 5 H[facility]CT PMV Bld Auto 10.9fL Normal [id number] 7.5 - 12.[address] MCH RBC Qn Auto 29.7pg Normal [id number] 26 - 34 H HCCT WBC num Bld Auto 8.8Thou/uL Normal [id number] 4 - 11 [facility]CT Platelet num Bld Auto 159Thou/uL Normal [id number] 150 - 450 [facility]CT MCHC RBC Auto-mCnc 33.2g/dL Normal [id number] 30 - 36 HHCCT Hct VFr Bld Auto 38.9% Below low normal [id number] 39 - 54 HHCCT MCV RBC Auto 90fL Normal [id number] 80 - 100 [facility] T Hgb Bld-mCnc 12.9g/dL Below low normal [id number] 13 - 17 .7 HHCCT Anticoagulant OTHER AGENT OR UNKNOWN Normal [id number] HHCCT Lactate SerPl-sCnc 1.6mmol/L Normal 0.5 - 1. 9 HHCCT Globulin Ser Calc-mCnc 2.3g/dL Normal 1.5 - 3.9 HHCCT ALT SerPl-cCnc 80U/L Above high normal 10 - 55 HHCCT AST SerPl-cCnc 80U/L Above high normal 10 - 55 HHCCT GFR/BSA.pred SerPlBld ILL-NHT-ReXTzi 90 Normal 59 - HHCCT Albumin SerPl-mCnc 4g/dL Normal 3.5 - 5 HHCCT Albumin/Glob SerPl 1.7Ratio Normal 1 - 3 HHCCT Creat SerPl-mCnc 0.9mg/dL Normal 0.5 - 1.3 HHCCT Bilirub SerPl-mCnc 0.4mg/dL Normal 0.2 - 1 HHCCT Anion Gap Bld-sCnc 12 Normal 7 - 17 HHCCT Sodium SerPl-sCnc 139mmol/L Normal 136 - 145 HHCCT Potassium SerPl-sCnc 4.7mmol/L Normal 3.4 - 5.3 HHCCT Chloride SerPl-sCnc 107mmol/L Normal 98 - 10 7 HHCCT Glucose SerPl-mCnc 122mg/dL Above high normal 65 - 99 HHCCT Prot SerPl-mCnc 6.3g/dL Normal 6.3 - 8.3 H HCCT BUN/Creat SerPl 23Ratio Normal 10 - 25 H HCCT Calcium SerPl-mCnc 8.6mg/dL Below low normal 8 .7 - 10.5 HHCCT CO2 SerPl-sCnc 20mmol/L Below low normal 22 - 33 HHCCT BUN SerPl-mCnc 21mg/dL Normal [id number] 8 - 21 HH CCT ALP SerPl-cCnc 47U/L Normal [id number] 45 - 128 HH CCT Imm Granulocytes/leuk NFr Bld Auto 0.4% Normal [id number] HHCCT Lymphocytes/leuk NFr Bld Auto 4.9% Normal [id number] HHCCT PMV Bld Auto 11.5fL Normal [id number] 7.5 - 12.[address] Monocytes num Bld Auto 1.07Thou/uL Normal [id number] 0.2 - 1.5 HHCCT Hct VFr Bld Auto 41.2% Normal [id number] 39 - 54 HHCCT Neutrophils num Bld Auto 10.15Thou/uL Above high normal [id number] 2 - 7.5 HHCCT Neutrophils/leuk NFr Bld Auto 85.6% Normal [id number] HHCCT Basophils/leuk NFr Bld Auto 0.1% Normal [id number] HHCCT Basophils num Bld Auto 0.01Thou/uL Normal [id number] 0 - 0.2 HHCCT Monocytes/leuk NFr Bld Auto 9% Normal [id number] HHCCT Eosinophil num Bld Auto 0Thou/uL Normal [id number] 0 - 0.7 HHCCT MCH RBC Qn Auto 29.9pg Normal [id number] 26 - 34 H HCCT Eosinophil/leuk NFr Bld Auto 0% Normal [id number] HHCCT Imm Granulocytes num Bld Auto 0.05Thou/uL Normal [id number] 0 - 0.1 HHCCT RDW RBC Auto-Rto 13.6% Normal [id number] 11.5 - 14. 5 H[facility]CT Platelet num Bld Auto 185Thou/uL Normal [id number] 150 - 450 H[facility]CT MCHC RBC Auto-mCnc 33.7g/dL Normal [id number] 30 - 36 HHCCT MCV RBC Auto 89fL Normal [id number] 80 - 100 [facility] T WBC num Bld Auto 11.9Thou/uL Above high normal [id number] 4 - 11 HHCCT RBC num Bld Auto 4.65Mil/uL Normal [id number] 4.5 - 6.2 HHCCT Hgb Bld-mCnc 13.9g/dL Normal [id number] 13 - 17.7 HHCC T Lymphocytes num Bld Auto 0.58Thou/uL Below low normal [id number] 1.5 - 4.5 HHCCT POC Glucose 135mg/dL Above high normal 65 - 99 HHCCT Oxycodone Ur Ql Scn Normal - HHCCT fentaNYL+Norfentanyl Ur Ql Scn Abnormal - HHCCT Opiates Ur Ql Scn>300 ng/mL Normal - CCT Barbiturates Ur Ql Scn>200 ng/mL Normal - HHCCT BZE Ur Ql Normal - HHCCT Benzodiaz Ur Ql Scn>200 ng/mL Normal - CCT Cannabinoids Ur Ql Scn>50 ng/mL Abnormal - HHCCT Amphetamines Ur Ql Normal - HHCCT WBC num/area UrnS HPF 1perhpf Normal [id number] 0 - 4 HHCCT RBC num/area UrnS HPF 10perhpf Above high normal [id number] 0 - 4 HHCCT Ketones Ur Strip-mCnc Normal [id number] - HHCCT Prot Ur Strip-mCnc Abnormal [id number] - HHCCT Glucose Ur Strip-mCnc Normal [id number] - HHCCT Nitrite Ur Ql Strip Normal [id number] - HHCCT Leukocyte esterase Ur Ql Strip Normal [id number] - HHCCT Bilirub Ur Strip-mCnc Normal [id number] - HHCCT Sp Gr Ur Strip 1.02 Normal [id number] 1.003 - 1.03 HHCCT pH Ur Strip 6 Normal [id number] 5 - 8 HHCCT Color Ur Normal [id number] HHCCT Clarity Ur Normal [id number] HHCCT Hgb Ur Ql Strip Abnormal [id number] - H HCCT Globulin Ser Calc-mCnc 2.5g/dL Normal [id number] 1.5 - 3.9 HHCCT ALT SerPl-cCnc 91U/L Above high normal [id number] 10 - 55 HHCCT AST SerPl-cCnc 80U/L Above high normal [id number] 10 - 55 HHCCT GFR/BSA.pred SerPlBld QUP-PGI-SoTWtu 60 Normal 59 - HHCCT Albumin SerPl-mCnc 4.7g/dL Normal 3.5 - 5 HHCCT Albumin/Glob SerPl 1.9Ratio Normal HHCCT Creat SerPl-mCnc 1mg/dL Normal 0.5 - 1.3 HHCCT Bilirub SerPl-mCnc 0.5mg/dL Normal 0.2 - 1 HHCCT Anion Gap Bld-sCnc 13 Normal 7 - 17 HHCCT Sodium SerPl-sCnc 141mmol/L Normal 136 - 145 HHCCT Potassium SerPl-sCnc 4mmol/L Normal 3.4 - 5.3 HHCCT Chloride SerPl-sCnc 107mmol/L Normal 98 - 10 7 HHCCT Glucose SerPl-mCnc 169mg/dL Above high normal 65 - 99 HHCCT Prot SerPl-mCnc 7.2g/dL Normal 6.3 - 8.3 H HCCT BUN/Creat SerPl 24Ratio Normal 10 - 25 H HCCT Calcium SerPl-mCnc 9.2mg/dL Normal 8.7 - 10 .5 HHCCT CO2 SerPl-sCnc 21mmol/L Below low normal 22 - 33 HHCCT BUN SerPl-mCnc 24mg/dL Above high normal 8 - 21 HHCCT ALP SerPl-cCnc 54U/L Normal 45 - 128 HH CCT Imm Granulocytes/leuk NFr Bld Auto 1% Normal HHCCT Lymphocytes/leuk NFr Bld Auto 34.7% Normal [id number] HHCCT PMV Bld Auto 11fL Normal 7.5 - 12.[address] Monocytes num Bld Auto 0.58Thou/uL Normal 0.2 - 1.5 HHCCT Hct VFr Bld Auto 48.2% Normal 39 - 54 HHCCT Neutrophils num Bld Auto 3.64Thou/uL Normal 2 - 7.5 HHCCT Neutrophils/leuk NFr Bld Auto 52.9% Normal HHCCT Basophils/leuk NFr Bld Auto 0.7% Normal HHCCT Basophils num Bld Auto 0.05Thou/uL Normal 0 - 0.2 HHCCT Monocytes/leuk NFr Bld Auto 8.4% Normal HHCCT Eosinophil num Bld Auto 0.16Thou/uL Normal 0 - 0.7 HHCCT MCH RBC Qn Auto 29.9pg Normal 26 - 34 H HCCT Eosinophil/leuk NFr Bld Auto 2.3% Normal HHCCT Imm Granulocytes num Bld Auto 0.07Thou/uL Normal 0 - 0.1 HHCCT RDW RBC Auto-Rto 13.4% Normal 11.5 - 14. 5 H[facility]CT Platelet num Bld Auto 211Thou/uL Normal 150 - 450 HHCCT MCHC RBC Auto-mCnc 33.2g/dL Normal 30 - 36 HHCCT MCV RBC Auto 90fL Normal 80 - 100 [facility] T WBC num Bld Auto 6.9Thou/uL Normal 4 - 11 HHCCT RBC num Bld Auto 5.36Mil/uL Normal 4.5 - 6.2 HHCCT Hgb Bld-mCnc 16g/dL Normal 13 - 17.7 HH[facility] T Lymphocytes num Bld Auto 2.39Thou/uL Normal 1.5 - 4.5 HHCCT History of Medication Use Medication Directions Dispensed Refills Start Date End Date Stat baclofen (LIORESAL) 20 MG tablet Take 1 tablet (20 mg total) by mouth every 8 (eight) hours around the clock. 05/24/2024 active acetaminophen (TYLENOL) 325 MG tablet Take 3 tablets (975 mg total) by mouth every 6 (six) hours around the clock. 05/24/2024 active enoxaparin (LOVENOX) 40 MG/0.4ML injection Inject 0.4 mL (40 mg total) under the skin every 12 (twelve) hours around the clock. 05/24/2024 active lidocaine (LIDODERM) 5 % patch Place 1 patch on the skin daily. Apply patch and leave on for 12 hours then remove. Patch may remain on skin for 12 hours per day. 05/24/2024 active gabapentin (NEURONTIN) 600 MG tablet Take 1 tablet (600 mg total) by mouth every 8 (eight) hours around the clock. 05/24/2024 active senna-docusate (SENNA-S) 8.6-50 MG Take 1 tablet by mouth nightly. 05/24/2024 active bisacodyl (DULCOLAX) 10 MG suppository Insert 1 suppository (10 mg total) into the rectum daily as needed for constipation. 05/24/2024 active multivitamin with minerals Tab tablet Take 1 tablet by mouth daily. 05/24/2024 active magnesium hydroxide (MILK OF MAGNESIA) 400 mg/5 mL suspension Take 30 mL by mouth daily as needed for constipation. 05/24/2024 active ondansetron (ZOFRAN) 4 MG/2ML injection Infuse 2 mL (4 mg total) into a venous catheter 4 times daily (every 6 hours) as needed for nausea or vomiting. 05/24/2024 active polyethylene glycol 17 g packet Take 1 packet (17 g total) by mouth 2 times a day. 05/24/2024 active tiZANidine (ZANAFLEX) 2 MG tablet Take 1 tablet (2 mg total) by mouth every 8 (eight) hours around the clock. 05/24/2024 active naloxone (NARCAN) 0.4 mg/mL injection Infuse 1 mL (0.4 mg total) into a venous catheter every 5 (five) minutes as needed for opioid reversal or respiratory depression. 05/24/2024 active ferrous sulfate 325 (65 FE) MG EC tablet Take 1 tablet (325 mg total) by mouth 2 (two) times a day. Take 2 hours before or 4 hours after acid reducers. 05/24/2024 active HYDROmorphone (DILAUDID) 4 MG tablet Take 1 tablet (4 mg total) by mouth every 3 (three) hours as needed for severe pain. Max Daily Amount: 32 mg 05/24/2024 active HYDROmorphone (DILAUDID) 2 MG tablet Take 1 tablet (2 mg total) by mouth every 3 (three) hours as needed for moderate pain. Max Daily Amount: 16 mg 05/24/2024 active Problems Problem Status Onset Date Problem Type Date of Resolution Source Pneumomediastinum active 2024-05-04 ProblemAct [facility] Transaminitis active 2024-05-04 ProblemAct [facility] Closed disp articular fracture of head of left femur with malunion active 2024-05-04 ProblemAct [facility] Right knee pain, unspecified chronicity active En[facility]Diagnosis[facility] Fracture of multiple ribs of right side active 2024-05-04 ProblemAct [facility] Closed fracture of left acetabulum active 2024-05-04 ProblemAct [facility] Closed fracture dislocation of left hip joint active 2024-05-04 ProblemAct [facility] Laceration of finger of right hand active 2024-05-04 ProblemAct [facility] Other closed fracture of right patella with routine healing, subsequent encounter active EncounterDiagnosisAct [facility] Right patella fracture active 2024-05-04 ProblemAct [facility] Immunizations Vaccine Date Source Lot Number Status Tdap 05/04/2024 [facility] [id number] completed
[2024-09-30 14:12] VITALS: BP 138/80; PULSE 82; O2SAT 97; BMI 28.2
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
== END 2024-09-30 16:43 | disposition home or self-care (01) ==
PROVIDERS: PCP Nurse Practitioner Family; Visit Provider Nurse Practitioner Family
DX: S82.001A Unspecified fracture of right patella, initial encounter for closed fracture (principal); S32.402A Unspecified fracture of left acetabulum, initial encounter for closed fracture; S61.210A Laceration without foreign body of right index finger without damage to nail, initial encounter; S72.06 Articular fracture of head of femur; M54.50 Low back pain, unspecified; V89.2XXA Person injured in unspecified motor-vehicle accident, traffic, initial encounter

== ENCOUNTER → 2024-09-30 14:05 | Outpatient (BNVA) | payer OTHER, SELFPAY | PROVIDERS: PCP Nurse Practitioner Family; Visit Provider Nurse Practitioner Family ==

== ENCOUNTER 2024-11-07 16:02 | Outpatient (AMB) | payer OTHER, SELFPAY ==
[2024-11-07 16:03] VITALS: BP 136/80; PULSE 83; RESP 16; TEMP 36.6; O2SAT 97; BMI 28.0
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
== END 2024-11-07 16:44 | disposition home or self-care (01) ==
PROVIDERS: PCP Nurse Practitioner Family; Visit Provider Nurse Practitioner Family
DX: S60.459A Superficial foreign body of unspecified finger, initial encounter (principal)

== ENCOUNTER 2024-11-07 16:02 | Outpatient (REF) | payer OTHER, SELFPAY ==
--- NOTE | ~2024-11-07 | XR_ITS ---
CLINICAL HISTORY: S60.459A - Superficial foreign body of unspecified finger, initial encou... 3 view right index finger Comparison: None Findings: Bones intact. No dislocations. No significant arthritic change. No erosions. Opaque foreign body of the base of the finger IMPRESSION: 1. Opaque foreign body in base of index finger This document has been electronically signed by: Martin Alexis MD on 11/09/2024 07:42:06
--- NOTE | ~2024-11-07 | XR_ITS ---
CLINICAL HISTORY: M54.50 - Low back pain, unspecified 3 views lumbar spine Comparison: None Findings: Normal alignment. No acute fractures or dislocation. There is severe degenerative disc changes at L4-L5. IMPRESSION: No acute findings. This document has been electronically signed by: Martin Alexis MD on 11/09/2024 07:40:17
== END 2024-11-07 16:03 | disposition home or self-care (01) ==
LOC: HO.HMGCX 16:02
PROVIDERS: PCP Nurse Practitioner Family; Visit Provider Nurse Practitioner Family
DX: S60.450A Superficial foreign body of right index finger, initial encounter (principal); M54.50 Low back pain, unspecified; V89.2XXA Person injured in unspecified motor-vehicle accident, traffic, initial encounter; Y93.9 Activity, unspecified; Y92.9 Unspecified place or not applicable; Y99.9 Unspecified external cause status
CPT/HCPCS: 72100; 73140; 96127

== ENCOUNTER → 2024-11-07 16:44 | Outpatient (BNV) | payer OTHER, SELFPAY | PROVIDERS: PCP Nurse Practitioner Family; Visit Provider Specialist | DX: M54.50 Low back pain, unspecified (principal); S60.450A Superficial foreign body of right index finger, initial encounter | CPT/HCPCS: 72100; 73140 ==

== ENCOUNTER 2024-11-20 14:59 | Outpatient (AMB) | payer OTHER, SELFPAY ==
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
--- OUTSIDE RECORDS SUMMARY | 2024-11-20 16:02 | XMS_ITS | Clinical Summary ---
Author Organization [facility] Address [address] [place] [address] Care Team Providers Care Manager Drilling Name Role Phone José Mejia MD Primary Care Provider + [phone] Allergies No known active allergies Medications Medication Sig Dispensed Refills Start Date End Date Status naloxone (NARCAN) 0.4 mg/mL injectionIndications:C losed fracture dislocation of left hip joint (HCC) Infuse 1 mL (0.4 mg total) into a venous catheter every 5 (five) minutes as needed for opioid reversal or respiratory depression. 05/10/2024 Active acetaminophen (TYLENOL) 325 MG tabletIndications:Clos ed fracture dislocation of left hip joint (HCC) Take 3 tablets (975 mg total) by mouth every 6 (six) hours around the clock. 05/10/2024 Active senna-docusate (SENNA-S) 8.6-50 MGIndications:Closed fracture dislocation of left hip joint (HCC) Take 1 tablet by mouth nightly. 05/10/2024 Active ondansetron (ZOFRAN) 4 MG/2ML injectionIndications:C losed fracture dislocation of left hip joint (HCC) Infuse 2 mL (4 mg total) into a venous catheter 4 times daily (every 6 hours) as needed for nausea or vomiting. 05/10/2024 Active lidocaine (LIDODERM) 5 % patchIndications:Close d fracture dislocation of left hip joint (HCC) Place 1 patch on the skin daily. Apply patch and leave on for 12 hours then remove. Patch may remain on skin for 12 hours per day. 05/11/2024 Active baclofen (LIORESAL) 20 MG tabletIndications:Clos ed fracture dislocation of left hip joint (HCC) Take 1 tablet (20 mg total) by mouth every 8 (eight) hours around the clock. 05/10/2024 Active multivitamin with minerals Tab tabletIndications:Clos ed fracture dislocation of left hip joint (HCC) Take 1 tablet by mouth daily. 05/11/2024 Active ferrous sulfate 325 (65 FE) MG EC tabletIndications:Clos ed fracture dislocation of left hip joint (HCC) Take 1 tablet (325 mg total) by mouth 2 (two) times a day. Take 2 hours before or 4 hours after acid reducers. 05/10/2024 Active gabapentin (NEURONTIN) 600 MG tabletIndications:Clos ed fracture dislocation of left hip joint (HCC) Take 1 tablet (600 mg total) by mouth every 8 (eight) hours around the clock. 05/10/2024 Active enoxaparin (LOVENOX) 40 MG/0.4ML injectionIndications:P rophylaxis of Venous Thromboembolism Inject 0.4 mL (40 mg total) under the skin every 12 (twelve) hours around the clock. 05/10/2024 Active HYDROmorphone (DILAUDID) 2 MG tabletIndications:Clos ed fracture dislocation of left hip joint (HCC) Take 1 tablet (2 mg total) by mouth every 3 (three) hours as needed for moderate pain. Max Daily Amount: 16 mg 05/10/2024 Active bisacodyl (DULCOLAX) 10 MG suppositoryIndications :Closed fracture dislocation of left hip joint (HCC) Insert 1 suppository (10 mg total) into the rectum daily as needed for constipation. 05/10/2024 Active magnesium hydroxide (MILK OF MAGNESIA) 400 mg/5 mL suspensionIndications: Closed fracture dislocation of left hip joint (HCC) Take 30 mL by mouth daily as needed for constipation. 05/10/2024 Active tiZANidine (ZANAFLEX) 2 MG tabletIndications:Clos ed fracture dislocation of left hip joint (HCC) Take 1 tablet (2 mg total) by mouth every 8 (eight) hours around the clock. 05/10/2024 Active polyethylene glycol 17 g packetIndications:Clos ed fracture dislocation of left hip joint (HCC) Take 1 packet (17 g total) by mouth 2 times a day. 05/10/2024 Active HYDROmorphone (DILAUDID) 4 MG tabletIndications:Clos ed fracture dislocation of left hip joint (HCC) Take 1 tablet (4 mg total) by mouth every 3 (three) hours as needed for severe pain. Max Daily Amount: 32 mg 05/10/2024 Active Active Problems Problem Noted Date Diagnosed Date Fracture of multiple ribs of right side 05/04/20 Right patella fracture 05/04/2024 Closed disp articular fractu re of head of left femur with malunion 05/04/2024 Closed fracture of left acetabulum 05/04/2024 Pneumomediastinum 05/04/2024 Transaminitis 05/04/2024 Closed fracture dislocation of left hip joint Resolved Problems Problem Noted Date Diagnosed Date Resolved Date Laceration of finger of right hand 05/04/2024 09/11/2024 Encounters Date Type Department Care Team Description 11/12/2024 3:00 PM EST Office Visit [facility] [address] [address] Taj Hall MD Status post total replacement of left hip (Primary Dx) 09/24/2024 Scanned Document Orthopedic [address] [address] Marion Elder 09/10/2024 3:30 PM EST Office Visit Orth[facility] [address] [address] Vee Hernandez PA-C Right knee pain, unspecified chronicity (Primary Dx); Other closed fracture of right patella with routine healing, subsequent encounter 09/10/2024 3:20 PM EST [facility]illary Procedure [facility] [address] [address] from Last 3 Months Immunizations Name Administration Dates Next Due Tdap 05/04/2024 Social History Tobacco Use Types Packs/Day Years Used Date Smoking Tobacco: Never Passive Smoke Exposure: Never Smokeless Tobacco: Never Tobacco Cessation:Counseling Given: No [facility] Utilities Answer Date Recorded In the past 12 months has e [employer], gas, oil, or water company threatened to shut off services in your home? No 05/06/2024 AUDIT-C Answer Date Recorded Q1: How often do you have a drink containing alc ohol? 2-4 times a month 05/04/2024 Q2: How many drinks containi ng alcohol do you have on a typical day when you are drinking? 1 or 2 05/04/2024 Q3: How often do you have si x or more drinks on one occasion? Never 05/04/2024 Hunger Vital Sign Answer Date Recorded Within the past 12 months, y ou worried that your food would run out before you got the money to buy more. Never true 05/06/20 24 Within the past 12 months, t he food you bought just didn't last and you didn't have money to get more. Never true 05/06/2024 PRAPARE - Transportation Answer Date Re corded In the past 12 months, has l ack of transportation kept you from medical appointments or from getting medications? No 04/16 In the past 12 months, has l ack of transportation kept you from meetings, work, or from getting things needed for daily living? No 05/06/2024 Housing Stability Vital Sign Answer Malcom e Recorded In the last 12 months, was t here a time when you were not able to pay the mortgage or rent on time? No 05/06/2024 In the last 12 months, how many places have you lived? 1 05/06/2024 In the last 12 months, was t here a time when you did not have a steady place to sleep or slept in a group home (including now)? No 05/06/2024 Sex and Gender Information Value Date Recorded Sex Assigned at Male 05/04/2024 11:44 AM EDT Gender Identity Male 05/04/2024 11:44 AM EDT Sexual Orientation Choose not to disclose 2023 11:44 AM EDT Last Filed Vital Signs Vital Sign Reading Time Taken Comments Blood Pressure 119/58 05/10/2024 7:55 AM EDT Pulse 67 05/10/2024 7:55 AM EDT Temperature 36.8 ??C (98.2 ??F) 05/10/2024 7:55 AM ED T Respiratory Rate 18 05/10/2024 7:55 AM EDT Oxygen Saturation 96% 05/10/2024 7:55 AM EDT Inhaled Oxygen Concentration - - Weight 101 kg (223 lb 8.7 oz) 05/04/2024 7:19 PM EDT Height 193 cm (6' 4 ) 05/04/2024 7:19 PM EDT Body Mass Index 27.21 05/04/2024 7:19 PM EDT Plan of Treatment Upcoming Encounters Date Type Department Care Team (Late st Contact Info) Description 11/11/2025 3:00 PM EST [facility] Visit [facility] [address] [place], [place] [address] Taj Hall MD [address] [facility] [address] [place] [address] Health Maintenance Due Date Last Done Comments Hepatitis C Virus Screening 1979 HIV Screening 1992 Hepatitis B Vaccines (1 of 3 - 19+ 3-dose series) 1998 Colonoscopy 2024 Influenza Vaccine 05/16/2024 COVID-19 Vaccine (2023-2 5 season) 2024 DTaP/Tdap/Td Vaccines (2 - T d or Tdap) 05/04/2034 05/04/2024 HPV Vaccines Aged Out No longer eligi ble based on patient's age to complete this topic Pneumococcal Vaccine: Pediat michael (0-5 Years) and At-Risk Patients (6 to 49 Years) Aged Out No longer eligible b ased on patient's age to complete this topic Medical Devices Implanted Type Area Deicer Repairer Electric Device Identifier Shelf Expiration Date Model / Serial / Lot 702-04-60g Shell Acetabular 60mm Hip Ch Tritanium Trdnt 2 G Sterl - [id number] Implanted:Qty : 1 on 05/06/2024 by Taj Hall MD at [facility] Joint Prosthesis Left: Hip [employer] - DIV STRY [id number] 01/29/2029 702-04-6 0G / / [id number] 723-10-36g Insert Acetabular 36mm 10d G Hip X3 Trdnt - [id number] Implanted:Qty : 1 on 05/06/2024 by Taj Hall MD at [facility] Joint Prosthesis Left: Hip [employer] GENI [id number] 04/05/2028 723-10-3 6G / / [id number] Stem Femoral 114mm Pf Acld 2 V40 Purefix Ti 127d 7 50mm High - [id number] Implanted:Qty : 1 on 05/06/2024 by Taj Hall MD at [facility] Joint Prosthesis Left: Hip [employer] STRY [id number] 12/17/2028 6721-073 7 / / [id number] 6570-0-136 Head Femoral +0mm Offset Taper 36mm Hip Blx D V40 Sterl - [id number] Implanted:Qty : 1 on 05/06/2024 by Taj Hall MD at [facility] Joint Prosthesis Left: Hip [employer] STRY [id number] 11/27/2028 6570-0-1 36 / / [id number] 8918-0144 Screw Bone Trdnt 2 25mm 6.5mm Lp Hex Sterl - [id number] Implanted:Qty : 1 on 05/06/2024 by Taj Hall MD at [facility] Screw Left: Hip [employer] STRY [id number] 10/02/2028 7030-652 5 / / [id number] Screw Bone Trdnt 2 30mm 6.5mm Lp Hex Sterl - [id number] Implanted:Qty : 1 on 05/06/2024 by Taj Hall MD at [facility] Screw Left: Hip [employer] STRY [id number] 12/26/2028 7030-653 0 / / [id number] Screw Bone Trdnt 2 25mm 6.5mm Lp Hex Sterl - [id number] Implanted:Qty : 1 on 05/06/2024 by Taj Hall MD at [facility] Screw Left: Hip [employer]Y [id number] 12/19/2028 7030-652 5 / / [id number] 214.736 Screw Bone Flthrd Rvrs Cut Flut 36mm Ss 4.5mm 6.5mm 1.75mm - [id number] Implanted:Qty : 1 on 05/07/2024 by Raul Pina MD at [facility] Screw Right: Patella [employer] - A STORM AN 214.736 / / 214.734 Screw Bone Flthrd Rvrs Cut Flut 34mm Ss 4.5mm 6.5mm 1.75mm - [id number] Implanted:Qty : 1 on 05/07/2024 by Raul Pina MD at [facility] Screw Right: Patella [employer] - A STORM AN 214.734 / / 219.91 Washer 10mm Orthopedic Ss 4.5mm Michelle Screw Nonst - [id number] Implanted:Qty : 1 on 05/07/2024 by Raul Pina MD at [facility] Washer/Nut Right: Patella [employer] - A STORM AN 219.91 / / 219.91 Washer 10mm Orthopedic Ss 4.5mm Michelle Screw Nonst - [id number] Implanted:Qty : 1 on 05/07/2024 by Raul Pina MD at [facility] Washer/Nut Right: Patella [employer] - A STORM AN 219.91 / / Explanted Type Area Deicer Repairer Electric Device Identifier Shelf Expiration Date Model / Serial / Lot 9905-1254 Screw Bone Trdnt 2 35mm 6.5mm Lp Hex Sterl - [id number] Explanted:Qty : 1 on 05/06/2024 by Taj Hall MD at [facility] Screw Left: Hip [employer] [id number] 11/22/2028 3803-1545 / / [id number] Procedures Procedure Name Priority Date/Time Associated Diagnosis Comments XR KNEE 3 VIEWS-RIGHT Routine 09/10/2024 4:00 PM EST Right knee pain, unspecified chronicity from Last 3 Months Results * XR Knee 3 views-Right (09/10/2024 4:00 PM EST) Narrative OAH - 09/10/2024 4:00 PM EST This exam was performed in office at [facility] and images reviewed by orthopedic provider. ??Any findings are documented within ambulatory encounter note on date of service. Vee Hernandez PA-C [facility] ORDERABLES OAH from Last 3 Months Advance Directives * Full Code (Latest Code Status on File) Date Activated Date Inactivated Comments 05/06/2024 9:01 PM * Full Code Date Activated Date Inactivated Comments 05/04/2024 5:42 PM 05/06/2024 9:01 PM Care Teams Manager Drilling Relationship Specialty Start Date End Date José Mejia MD [address] [place] [address] PCP - General Family Medicine 05/06/24
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
--- OUTSIDE RECORDS SUMMARY | 2024-11-20 16:03 | XMS_ITS | Encounter Summary ---
Author Organization [facility] Address [address] [place] [address] Care Team Providers Care Foreign Service Officer Name Role Phone José Mejia MD Primary Care Provider + [phone] Encounter Details Date Type Department Care Team (Late st Contact Info) Description 09/24/2024 Scanned Document [facility] [address] [place] [id number] [place] [address] [address] Social History Tobacco Use Types Packs/Day Years Used Date Smoking Tobacco: Never Passive Smoke Exposure: Never Smokeless Tobacco: Never [facility] Utilities Answer Date Recorded In the past 12 months has [employer], gas, oil, or water company threatened to [...] place to sleep or slept in a halfway (including now)? No 05/06/2024 Sex and Gender Information Value Date Recorded Sex Assigned at Male 05/04/2024 11:44 AM EDT Gender Identity Male 05/04/2024 11:44 AM EDT Sexual Orientation Choose not to disclose 2023 11:44 AM EDT documented as of this encounter Plan of Treatment Upcoming Encounters Date Type Department Care Team (Late st Contact Info) Description 11/11/2025 3:00 PM EST [facility] [address] [place] [address] Taj Hall MD [address] [facility] [address] [place] [address] documented as of this encounter Visit Diagnoses Not on filedocumented in this encounter Care Teams Foreign Service Officer Relationship Specialty Start Date End Date José Mejia MD [address] [place] [address] PCP - General Family Medicine 05/06/24 documented as of this encounter
--- OUTSIDE RECORDS SUMMARY | 2024-11-20 16:03 | XMS_ITS | Encounter Summary ---
Author Organization [facility] Address [address] [place] [address] Care Team Providers Care Chief Catalyst Operator Name Role Phone José Mejia MD Primary Care Provider + [phone] Encounter Details Date Type Department Care Team (Late st Contact Info) Description 06/14/2024 Scanned Document [facility] [address] [place] [address] Brooke Bolden [address] [facility] [address] [place] [address] Social History Tobacco Use Types Packs/Day Years Used Date Smoking Tobacco: Never Passive Smoke Exposure: Never Smokeless Tobacco: Never [facility] Utilities Answer Date Recorded In the past 12 months has [facility] electric, gas, oil, or water company threatened [...] place to sleep or slept in a penitentiary (including now)? No 05/06/2024 Sex and Gender [...] 3:00 PM EST [facility] [address] [place] [address] Taj Hall MD [address] [facility] [address] [place] [address] documented as of this encounter Visit Diagnoses Not on filedocumented in this encounter Care Teams Chief Catalyst Operator Relationship Specialty Start Date End Date José Mejia MD [address] [place] [address] PCP - General Family Medicine 05/06/24 documented as of this encounter
== END 2024-11-20 15:43 | disposition home or self-care (01) ==
PROVIDERS: PCP Nurse Practitioner Family
DX: S60.454A Superficial foreign body of right ring finger, initial encounter (principal)
CPT/HCPCS: 99204

== ENCOUNTER 2024-12-04 08:54 | Day surgery (SDC) | payer OTHER, SELFPAY ==
[2024-12-04 08:59] VITALS: BP 166/110; PULSE 65; RESP 16; TEMP 36.1; O2SAT 99; BMI 27.3
--- NOTE | 2024-12-04 09:00 | MHC.SHP ---
Pre-Procedural Eval Section A - 24 Hr Update-Section A only Date of Service: 12/04/24 The patient is an INPATIENT: No Changes since office visit: No Cold of Flu in the past 2 weeks, No New Medical Problems, No Changes in Medication and No Patient answered all questions The patient has been examined within 24 hours of the surgical procedure. The History & Physical has been completed within 30 days and I have reviewed it.: Yes Section B - Complete if H&P > 30 days Chief Complaint: Superficial foreign body of right index finger, in Details of Present Illness: Right index finger foreign body Allergies: Allergies Allergy/AdvReac Type Severity Reaction Status Date / Time No Known Allergies Allergy Verified 11/20/24 15:03 Plan Diagnosis/Plan: Unchanged I have reviewed the history and physical and performed a pertinent physical examination on my patient. No changes have occurred unless specified. Assessment and plan: 1. Right index finger foreign body removal Time Spent With Patient Time: Total time managing care of this patient today ____ minutes.
--- NOTE | 2024-12-04 09:01 | W.PM.OPN ---
Operative Note Operative Note Date of Service: 12/04/24 Narrative: Operative Note Preop diagnosis: 1. Right index finger foreign body Postop diagnosis: same Procedure: 1. Right index finger foreign body removal Surgeon: Francesca Christensen MD Medical Reimbursement Manager: Edd PEREZ Anesthesia: digital block using 1% lidocaine with epinephrine Findings: A small, 5 mm by 6 mm piece of glass was removed from the patient's finger EBL: Less than 5 mL Tourniquet time: None Specimens: Right index finger foreign body Complications: None Disposition: Brought to recovery room in stable condition Plan: Follow-up for 7-10 days for wound check and suture removal and to check pathology Indications: The patient is 44 years old, with right index finger foreign body . The risks and benefits of operative treatment including but not limited to risk of damage to blood vessels, nerves, tendons, infection, persistent pain, persistent symptoms, recurrence or possible need for additional surgery were discussed with the patient and the patient wishes to proceed with surgery. Procedure: Once consent was obtained a digital block was performed in the preop area using a combination of 1% lidocaine with epinephrine. The patient was then brought back to the operating suite and placed on the operative table in supine position. The right upper extremity and the limb was prepped and draped in a standard surgical fashion. A finger tourniquet was applied to the base of the right index finger for fewer than 30 minutes. Once assured that we had a good block, I made a 2 cm longitudinal incision over the radial base of the index finger proximal phalanx which was centered directly over the palpable foreign body. Incision was made through the skin the subcutaneous tissues with a 15. Blade. I then dissected down through the subcutaneous tissues to the foreign body. A small, 5 mm x 6 mm piece of glass was removed from the subcutaneous tissues radial to the base of the right index finger. No further foreign bodies were appreciated, and the patient reported that he only appreciated 1 foreign body in the area. Once satisfied with with our foreign body removal the wound was copiously irrigated with normal saline and hemostasis was obtained with a brief period of local pressure. The skin edges were reapproximated with some 5.0 nylon suture material and a sterile dressing was applied. The patient appears to have tolerated the procedure well and with no complications. All digits were well vascularized at the conclusion of the case.
[2024-12-04 10:03] VITALS: BP 151/93; PULSE 70; O2SAT 100
== END 2024-12-04 10:09 | disposition home or self-care (01) ==
PROVIDERS: PCP Nurse Practitioner Family; Visit Provider Orthopaedic Surgery
PROC: (CPT 10120; principal; 2024-12-04 10:00)
DX: S60.450A Superficial foreign body of right index finger, initial encounter (principal); V49.9XXA Car occupant (driver) (passenger) injured in unspecified traffic accident, initial encounter; Y93.89 Activity, other specified; Y92.410 Unspecified street and highway as the place of occurrence of the external cause; Y99.8 Other external cause status; Z87.81 Personal history of (healed) traumatic fracture; Z96.642 Presence of left artificial hip joint; F17.210 Nicotine dependence, cigarettes, uncomplicated
CPT/HCPCS: 10120; J0171; J2003

== ENCOUNTER → 2024-12-04 08:54 | Outpatient (BNV) | payer OTHER, SELFPAY | PROVIDERS: PCP Nurse Practitioner Family; Visit Provider Orthopaedic Surgery | DX: S60.450A Superficial foreign body of right index finger, initial encounter (principal) | CPT/HCPCS: 10120 ==

== ENCOUNTER 2024-12-17 11:34 | Outpatient (AMB) | payer OTHER, SELFPAY ==
--- NOTE | 2024-12-17 11:37 | MHC.OFFVIS ---
Intake Visit Reasons: PO RT IF FOB removal 12/04/24 AR Intake Note: Miguel is a 44 year old right hand dominant male who presents today for a post operative visit s/p Right index finger foreign body removal, DOS: 12/04/2024 w/ Dr Christensen.Patient reports that he is doing well with no concerns Allergies No Known Allergies Allergy (Verified 12/04/24 09:03) HPI HPI PO RT IF FOB removal 12/04/24 AR: Details: Miguel is a 44 year old right hand dominant male who presents today for a post operative visit s/p Right index finger foreign body removal, DOS: 12/04/2024 w/ Dr Christensen.Patient reports that he is doing well with no concerns. [facility] Medical History Closed displaced articular fracture of head of femur Laceration of right index finger Pneumomediastinum Rib fracture Right patella fracture Hip fracture, left Finger laceration Facial laceration Surgical History History of total left hip replacement Family History Father Hypertension Mother Hypertension Brother Testicular cancer Social History Housing: House Alcohol intake: current Alcohol intake frequency: a few times a week Alcohol type: beer Patient Tobacco Use Status: Current everyday Tobacco user Tobacco use type: Cigarette Cigarette Packs Per Day: 1 Cigarettes Per Day: 20 e-Cigarette/Vaping Use: Never Used Current occupational status: employed Cognitive needs: No Hearing needs: No Vision needs: No Review of Systems Const All systems reviewed & are unremarkable except as noted in HPI and below Physical Exam Extrem Other: Patient is alert, oriented, and in no acute distress. Neuro: Normal sensation of the tips of all digits of the right hand at this time Vascular: Cap refill brisk Pain: No tenderness to palpation about the incision site on the radial aspect of the right index finger ROM: Patient is able to make a closed fist and extend all digits of the right hand fully Skin: No lacerations or abrasions. General: There is noted to be some ikpi-pt-ppwqqqai erythema and edema surrounding the incision site Psych: Appears grossly normal Affect normal Attitude cooperative Assessment & Plan Assessment & Plan (1) Foreign body of right index finger: Code(s): S60.450A - Superficial foreign body of right index finger, initial encounter Category: Medical Plan 1. Status post foreign body removal of right index finger DOS 12/04/24 Patient appears to be recovering well postoperatively Patient is educated about the typical recovery course At this time, patient was sent a one-week course of Augmentin out of an abundance of caution to ensure he has no superficial wound infection around the incision site Patient was amenable to this plan Patient will follow-up in 1 week, sooner with any acute concerns Medications: New amoxicillin-pot clavulanate 875-125 mg 1 tab PO BID 14 tabs 0RF 7 days Coding Level of Care Code Global (16823) Diagnoses Foreign body of right index finger S60.450A
--- OUTSIDE RECORDS SUMMARY | 2024-12-17 14:43 | XMS_ITS | Encounter Summary ---
Author Organization [facility] Address [address] [place] [address] Care Team Providers Care Flour Mixer Name Role Phone José Mejia MD Primary Care Provider + [phone] Encounter Details Date Type Department Care Team (Late st Contact Info) Description 09/24/2024 Scanned Document [facility] [address] [place] [id number] Jerrod [address] [address] Social History Tobacco Use Types Packs/Day Years Used Date Smoking Tobacco: Never Passive Smoke Exposure: Never Smokeless Tobacco: Never [facility] Utilities Answer Date Recorded In the past 12 months has [employer] electric, gas, oil, or water company threatened [...] place to sleep or slept in a fdc (including now)? No 05/06/2024 Sex and Gender [...] 3:00 PM EST Office Visit [facility] [address] [place] [address] Taj Hall MD [address] [facility] [address] [place] [address] documented as of this encounter Visit Diagnoses Not on filedocumented in this encounter Care Teams Flour Mixer Relationship Specialty Start Date End Date José Mejia MD [address] [place] [address] PCP - General Family Medicine 05/06/24 documented as of this encounter
--- OUTSIDE RECORDS SUMMARY | 2024-12-17 14:43 | XMS_ITS | Encounter Summary ---
Author Organization [facility] Address [address] [place] [address] Care Team Providers Care Supervisor Electronics Testing Name Role Phone José Mejia MD Primary Care Provider + [phone] Encounter Details Date Type Department Care Team (Late st Contact Info) Description 06/14/2024 Scanned Document [facility] [address] [place] [address] Brooke Bolden [address] [facility] [address] [place] [address] Social History Tobacco Use Types Packs/Day Years Used Date Smoking Tobacco: Never Passive Smoke Exposure: Never Smokeless Tobacco: Never [facility] Utilities Answer Date Recorded In the past 12 months has [facility] electric, gas, oil, or water company threatened [...] place to sleep or slept in a longterm (including now)? No 05/06/2024 Sex and Gender [...] 3:00 PM EST Office Visit [facility] [address] [place] [address] Taj Hall MD [address] [facility] [address] [place] [address] documented as of this encounter Visit Diagnoses Not on filedocumented in this encounter Care Teams Supervisor Electronics Testing Relationship Specialty Start Date End Date José Mejia MD [address] [place] [address] PCP - General Family Medicine 05/06/24 documented as of this encounter
--- OUTSIDE RECORDS SUMMARY | 2024-12-17 14:43 | XMS_ITS | Clinical Summary ---
Author Organization [facility] Address [address] [place] [address] Care Team Providers Care Dye Range Tender Name Role Phone José Mejia MD Primary Care Provider + [phone] Allergies No known active allergies Medications Medication [...] 3:00 PM EST Office Visit [facility] [address] [address] Taj Hall MD Status post total replacement of left hip (Primary Dx) 09/24/2024 Scanned Document [facility] [address] [address] [place] Elder from Last 3 Months Immunizations Name Administration Dates Next Due Tdap 05/04/2024 Social History Tobacco Use Types Packs/Day Years Used Date Smoking Tobacco: Never Passive Smoke Exposure: Never Smokeless Tobacco: Never Tobacco Cessation:Counseling Given: No [facility] Utilities Answer Date Recorded In the past 12 months has e [employer], [employer], oil, or water [employer] threatened to shut off services in your [...] place to sleep or slept in a care home (including now)? No 05/06/2024 Sex and [...] 3:00 PM EST [facility] Visit [facility] [address] [place] [address] Taj Hall MD [address] [facility] [address] [place] [address] Health Maintenance Due Date Last Done Comments Hepatitis C Virus Screening 1979 HIV Screening 1992 Hepatitis B Vaccines (1 of 3 - 19+ 3-dose series) 1998 Colonoscopy 2024 Influenza Vaccine 05/16/2024 COVID-19 Vaccine ( - 2023-2 5 season) 2024 DTaP/Tdap/Td Vaccines (2 - T d or Tdap) 05/04/2034 05/04/2024 HPV Vaccines Aged Out No longer eligi ble based on patient's age to complete this topic Pneumococcal Vaccine: Pediat michael (0-5 Years) and At-Risk Patients (6 to 49 Years) Aged Out No longer eligible b ased on patient's age to complete this topic Medical Devices Implanted Type Area Financial Analysis Manager Device Identifier Shelf Expiration Date Model / Serial / Lot 702-04-60g Shell Acetabular 60mm Hip Ch Tritanium Trdnt 2 G Sterl - [id number] Implanted:Qty : 1 on 05/06/2024 by Taj Hall MD at [facility] Joint Prosthesis Left: Hip [employer] - DIV STRY [id number] 01/29/2029 702-04-6 0G / / [id number] 723-10-36g Insert Acetabular 36mm 10d G Hip X3 Trdnt - [id number] Implanted:Qty : 1 on 05/06/2024 by Taj Hall MD at [facility] Joint Prosthesis Left: Hip [employer] GENI [id number] 04/05/2028 723-10-3 6G / / [id number] 2968-4453 Stem Femoral 114mm Pf Acld 2 V40 Purefix Ti 127d 7 50mm High - [id number] Implanted:Qty : 1 on 05/06/2024 by Taj Hall MD at [facility] Joint Prosthesis Left: Hip [employer] - DIV STRY [id number] 12/17/2028 6721-073 7 / / [id number] 6570-0-136 Head Femoral +0mm Offset Taper 36mm Hip Blx D V40 Sterl - [id number] Implanted:Qty : 1 on 05/06/2024 by Taj Hall MD at [facility] Joint Prosthesis Left: Hip [employer] - DIV STRY [id number] 11/27/2028 6570-0-1 36 / / [id number] 5787-2661 Screw Bone Trdnt 2 25mm 6.5mm Lp Hex Sterl - [id number] Implanted:Qty : 1 on 05/06/2024 by Taj Hall MD at [facility] Screw Left: Hip [employer] - DIV STRY [id number] 10/02/2028 7030-652 5 / / [id number] 7618-7419 Screw Bone Trdnt 2 30mm 6.5mm Lp Hex Sterl - [id number] Implanted:Qty : 1 on 05/06/2024 by Taj Hall MD at [facility] Screw Left: Hip [employer] - DIV STRY [id number] 12/26/2028 7030-653 0 / / [id number] 6618-0051 Screw Bone Trdnt 2 25mm 6.5mm Lp Hex Sterl - [id number] Implanted:Qty : 1 on 05/06/2024 by Taj Hall MD at [facility] Screw Left: Hip [employer] - DIV STRY [id number] 12/19/2028 7030-652 5 / / [id number] 214.736 Screw Bone Flthrd Rvrs Cut Flut 36mm Ss 4.5mm 6.5mm 1.75mm - [id number] Implanted:Qty : 1 on 05/07/2024 by Raul Pina MD at [facility] Screw Right: Patella [employer] - A STORM AN 214.736 / / 214.734 Screw Bone Flthrd Rvrs Cut Flut 34mm Ss 4.5mm 6.5mm 1.75mm - [id number] Implanted:Qty : 1 on 05/07/2024 by Raul Pina MD at [facility] Screw Right: Patella [employer] - A STORM AN 214.734 / / 219.91 Washer 10mm Orthopedic Ss 4.5mm Michelle Screw Nonst - [id number] Implanted:Qty : 1 on 05/07/2024 by Raul Pina MD at [facility] Washer/Nut Right: Patella [employer] - A STORM AN 219.91 / / 219.91 Washer 10mm Orthopedic Ss 4.5mm Michelle Screw Nonst - [id number] Implanted:Qty : 1 on 05/07/2024 by Raul Pina MD at [facility] Washer/Nut Right: Patella [employer] - A STORM AN 219.91 / / Explanted Type Area Financial Analysis Manager Device Identifier Shelf Expiration Date Model / Serial / Lot [id number] Screw Bone Trdnt 2 35mm 6.5mm Lp Hex Sterl - [id number] Explanted:Qty : 1 on 05/06/2024 by Taj Hall MD at [facility] Screw Left: Hip [employer] DIV STRY [id number] 11/22/2028 5701-0621 / / [id number] Advance Directives * Full Code (Latest Code Status on File) Date Activated Date Inactivated Comments 05/06/2024 9:01 PM * Full Code Date Activated Date Inactivated Comments 05/04/2024 5:42 PM 05/06/2024 9:01 PM Care Teams Dye Range Tender Relationship Specialty Start Date End Date José Mejia MD [address] [place] [address] PCP - General Family Medicine 05/06/24
== END 2024-12-17 11:52 | disposition home or self-care (01) ==
PROVIDERS: PCP Nurse Practitioner Family
DX: S60.450A Superficial foreign body of right index finger, initial encounter (principal)
CPT/HCPCS: 99024

== ENCOUNTER 2024-12-23 11:50 | Outpatient (AMB) | payer OTHER, SELFPAY ==
--- NOTE | 2024-12-23 11:51 | A.OFFVIS_ITS ---
Vital Signs 12/23/24 11:53 Height 6 ft 5 in Weight 230 lb BMI 27.3 Intake Visit Reasons: PO-RT IF FOB removal 12/04/24 AR Intake Note: Miguel is a 44 year old right hand dominant male who presents today for a post operative wound check s/p Right index finger foreign body removal, DOS: 12/04/2024 w/ Dr Christensen. Patient reports that he is doing great, he has no concerns at this time. Allergies No Known Allergies Allergy (Verified 12/04/24 09:03) HPI HPI PO-RT IF FOB removal 12/04/24 AR: Details: Miguel is a 44 year old right hand dominant male who presents today for a post operative wound check s/p Right index finger foreign body removal, DOS: 12/04/2024 w/ Dr Christensen. Patient reports that he is doing great, he has no concerns at this time. [facility] Medical History Closed displaced articular fracture of head of femur Laceration of right index finger Pneumomediastinum Rib fracture Right patella fracture Hip fracture, left Finger laceration Facial laceration Surgical History History of total left hip replacement Family History Father Hypertension Mother Hypertension Brother Testicular cancer Social History Housing: House Alcohol intake: current Alcohol intake frequency: a few times a week Alcohol type: beer Patient Tobacco Use Status: Current everyday Tobacco user Tobacco use type: Cigarette Cigarette Packs Per Day: 1 Cigarettes Per Day: 20 e-Cigarette/Vaping Use: Never Used Current occupational status: employed Cognitive needs: No Hearing needs: No Vision needs: No Review of Systems Const All systems reviewed & are unremarkable except as noted in HPI and below Physical Exam Vital Signs: BMI result Body Mass Index 27.3 Extrem Other: Patient is alert, oriented, and in no acute distress. Neuro: Normal sensation of the tips of all digits of the right hand at this time Vascular: Cap refill brisk Pain: No tenderness to Palpation about the incision site on the radial and proximal aspect of the right index finger ROM: Patient was able to make a closed fist and extend all digits of the right hand fully and without difficulty Skin: Well approximated and well healing incision site noted on the proximal and radial aspect of the right index finger Erythema resolved General: No ecchymosis, erythema, or evidence of infection. Psych: Appears grossly normal Affect normal Attitude cooperative Assessment & Plan Assessment & Plan (1) Foreign body of right index finger: Code(s): S60.450A - Superficial foreign body of right index finger, initial encounter Category: Medical Plan 1. Status post foreign body removal of right index finger DOS 12/04/24 Patient appears to be recovering well postoperatively Patient was educated about the typical recovery course Patient is educated that since his erythema has completely resolved, there is no further need for any antibiotic therapy Patient expresses understanding of this and is amenable to this plan Patient will follow-up as needed with any acute concerns Coding Level of Care Code Global (02478) Diagnoses Foreign body of right index finger S60.450A
[2024-12-23 11:53] VITALS: BMI 27.3
--- OUTSIDE RECORDS SUMMARY | 2024-12-23 13:32 | XMS_ITS | Encounter Summary ---
Author Organization [facility] Address [address] [place] [address] Care Team Providers Care Flooring Grader Name Role Phone José Mejia MD Primary Care Provider + [phone] Encounter Details Date Type Department Care Team (Late st Contact Info) Description 09/24/2024 Scanned Document [facility] [address] [place] [id number] Jerrod [address] [address] Social History Tobacco Use Types Packs/Day Years Used Date Smoking Tobacco: Never Passive Smoke Exposure: Never Smokeless Tobacco: Never [facility] Utilities Answer Date Recorded In the past 12 months has [employer] electric, gas, oil, or water company threatened [...] 3:00 PM EST Office Visit [facility] [address] [place] [address] Taj Hall MD [address] [facility] [address] [place] [address] documented as of this encounter Visit Diagnoses Not on filedocumented in this encounter Care Teams Flooring Grader Relationship Specialty Start Date End Date José Mejia MD [address] [place] [address] PCP - General Family Medicine 05/06/24 documented as of this encounter
--- OUTSIDE RECORDS SUMMARY | 2024-12-23 13:32 | XMS_ITS | Clinical Summary ---
Author Organization [facility] Address [address] [place] [address] Care Team Providers Care Compensation/Benefits Specialist Name Role Phone José Mejia MD Primary Care Provider + [phone] Allergies No known active allergies Medications Medication [...] 3:00 PM EST [facility] Visit [facility] [address] [address] Taj Hall MD Status post total replacement of left hip (Primary Dx) 09/24/2024 Scanned Document [facility] [address] [address] [place] Elder from Last 3 Months Immunizations Name Administration Dates Next Due Tdap 05/04/2024 Social History Tobacco Use Types Packs/Day Years Used Date Smoking Tobacco: Never Passive Smoke Exposure: Never Smokeless Tobacco: Never Tobacco Cessation:Counseling Given: No [facility] Utilities Answer Date Recorded In the past 12 months has e [employer], [employer], oil, or water [employer] threatened to shut off services in your [...] place to sleep or slept in a snf (including now)? No 05/06/2024 Sex and Gender [...] 3:00 PM EST Office Visit [facility] [address] [place] [address] Taj Hall MD [address] [facility] [address] [place] [address] Health Maintenance Due Date Last Done Comments [...] this topic Medical Devices Implanted Type Area Digital Media Analyst Device Identifier Shelf Expiration Date Model / Serial / Lot 702-04-60g Shell Acetabular 60mm Hip Ch Tritanium Trdnt 2 G Sterl - [id number] Implanted:Qty : 1 on 05/06/2024 by Taj Hall MD at [facility] Joint Prosthesis Left: Hip [employer] [id number] 01/29/2029 702-04-6 0G / / [id number] 723-10-36g Insert Acetabular 36mm 10d G Hip X3 Trdnt - [id number] Implanted:Qty : 1 on 05/06/2024 by Taj Hall MD at [facility] Joint Prosthesis Left: Hip [employer] GENI [id number] 04/05/2028 723-10-3 6G / / [id number] 3557-2953 Stem Femoral 114mm Pf Acld 2 V40 Purefix Ti 127d 7 50mm High - [id number] Implanted:Qty : 1 on 05/06/2024 by Taj Hall MD at [facility] Joint Prosthesis Left: Hip [employer] [id number] 12/17/2028 6721-073 7 / / [id number] 6570-0-136 Head Femoral +0mm Offset Taper 36mm Hip Blx D V40 Sterl - [id number] Implanted:Qty : 1 on 05/06/2024 by Taj Hall MD at [facility] Joint Prosthesis Left: Hip [employer] [id number] 11/27/2028 6570-0-1 36 / / [id number] 3622-8599 Screw Bone Trdnt 2 25mm 6.5mm Lp Hex Sterl - [id number] Implanted:Qty : 1 on 05/06/2024 by Taj Hall MD at [facility] Screw Left: Hip [employer] [id number] 10/02/2028 7030-652 5 / / [id number] 9593-6228 Screw Bone Trdnt 2 30mm 6.5mm Lp Hex Sterl - [id number] Implanted:Qty : 1 on 05/06/2024 by Taj Hall MD at [facility] Screw Left: Hip [employer] [id number] 12/26/2028 7030-653 0 / / [id number] 1909-3547 Screw Bone Trdnt 2 25mm 6.5mm Lp Hex Sterl - [id number] Implanted:Qty : 1 on 05/06/2024 by Taj Hall MD at [facility] Screw Left: Hip [employer] [id number] 12/19/2028 7030-652 5 / / [id number] 214.736 Screw Bone Flthrd Rvrs Cut Flut 36mm Ss 4.5mm 6.5mm 1.75mm - [id number] Implanted:Qty : 1 on 05/07/2024 by Raul Pina MD at [facility] Screw Right: Patella [employer] - A STORM AN 214.736 / / 214.734 Screw Bone Flthrd Rvrs Cut Flut 34mm Ss 4.5mm 6.5mm 1.75mm - [id number] Implanted:Qty : 1 on 05/07/2024 by Raul Pina MD at [facility] Screw Right: Patella [employer] - A STORM AN 214.734 / / 219.91 Washer 10mm Orthopedic Ss 4.5mm Michelle Screw Nonst - [id number] Implanted:Qty : 1 on 05/07/2024 by Raul Pina MD at [facility] Washer/Nut Right: Patella [employer] - A STORM AN 219.91 / / 219.91 Washer 10mm Orthopedic Ss 4.5mm Michelle Screw Nonst - [id number] Implanted:Qty : 1 on 05/07/2024 by Raul Pina MD at [facility] Washer/Nut Right: Patella [employer] - A STORM AN 219.91 / / Explanted Type Area Digital Media Analyst Device Identifier Shelf Expiration Date Model / Serial / Lot [id number] Screw Bone Trdnt 2 35mm 6.5mm Lp Hex Sterl - [id number] Explanted:Qty: 1 on 05/06/2024 by Taj Hall MD at [facility] Screw Left: Hip [employer] [id number] 11/22/2028 7030-653 5 / / [id number] Advance Directives * Full Code (Latest Code Status on File) Date Activated Date Inactivated Comments 05/06/2024 9:01 PM * Full Code Date Activated Date Inactivated Comments 05/04/2024 5:42 PM 05/06/2024 9:01 PM Care Teams Compensation/Benefits Specialist Relationship Specialty Start Date End Date José Mejia MD [address] [place] [address] PCP - General Family Medicine 05/06/24
--- OUTSIDE RECORDS SUMMARY | 2024-12-23 13:32 | XMS_ITS | Encounter Summary ---
Author Organization [facility] Address [address] [place] [address] Care Team Providers Care Softlines Supervisor Name Role Phone José Mejia MD Primary Care Provider + [phone] Encounter Details Date Type Department Care Team (Late st Contact Info) Description 06/14/2024 Scanned Document [facility] [address] [place] [address] Brooke Bolden [address] [facility] [address] [place] [address] Social History Tobacco Use Types Packs/Day Years Used Date Smoking Tobacco: Never Passive Smoke Exposure: Never Smokeless Tobacco: Never [facility] Utilities Answer Date Recorded In the past 12 months has [facility] electric, gas, oil, or water company [...] 3:00 PM EST Office Visit [facility] [address] [place] [address] Taj Hall MD [address] [facility] [address] [place] [address] documented as of this encounter Visit Diagnoses Not on filedocumented in this encounter Care Teams Softlines Supervisor Relationship Specialty Start Date End Date José Mejia MD [address] [place] [address] PCP - General Family Medicine 05/06/24 documented as of this encounter
== END 2024-12-23 12:13 | disposition home or self-care (01) ==
PROVIDERS: PCP Nurse Practitioner Family
DX: S60.450A Superficial foreign body of right index finger, initial encounter (principal)
CPT/HCPCS: 99024

== ENCOUNTER → 2024-12-23 11:50 | Outpatient (BNVA) | payer OTHER, SELFPAY | PROVIDERS: PCP Nurse Practitioner Family ==

== ENCOUNTER 2025-01-21 09:36 | Outpatient (REF) | payer OTHER, SELFPAY ==
--- OUTSIDE RECORDS SUMMARY | 2025-01-21 10:48 | XMS_ITS | Encounter Summary ---
Author Organization [facility] Address [address] [place] [address] Care Team Providers Care Vice Admiral Name Role Phone José Mejia MD Primary Care Provider + [phone] Encounter Details Date Type Department Care Team (Late st Contact Info) Description 09/24/2024 Scanned Document [facility] [address] [place] [id number] Jerrod [address] [address] Social History Tobacco Use Types Packs/Day Years Used Date Smoking Tobacco: Never Passive Smoke Exposure: Never Smokeless Tobacco: Never [facility] Utilities Answer Date Recorded In the past 12 months has [employer] electric, gas, oil, or water company threatened [...] place to sleep or slept in a [place] health care facility (including now)? No 05/06/2024 Sex and Gender [...] PM EST Office Visit [facility] [address] [place] [address] Taj Hall MD [address] [facility] [address] [place] [address] documented as of this encounter Visit Diagnoses Not on filedocumented in this encounter Care Teams Vice Admiral Relationship Specialty Start Date End Date José Mejia MD [address] [place] [address] PCP - General Family Medicine 05/06/24 documented as of this encounter
--- OUTSIDE RECORDS SUMMARY | 2025-01-21 10:48 | XMS_ITS | Encounter Summary ---
Author Organization [facility] Address [address] [place] [address] Care Team Providers Care Program Director/Air Personality Name Role Phone José Mejia MD Primary Care Provider + [phone] Encounter Details Date Type Department Care Team (Late st Contact Info) Description 06/14/2024 Scanned Document [facility] [address] [place] [address] Brooke Bolden [address] [facility] [address] [place] [address] Social History Tobacco Use Types Packs/Day Years Used Date Smoking Tobacco: Never Passive Smoke Exposure: Never Smokeless Tobacco: Never [facility] Utilities Answer Date Recorded In the past 12 months has [facility] electric, gas, oil, or water company [...] place to sleep or slept in a long-term (including now)? No 05/06/2024 Sex and Gender [...] 3:00 PM EST [facility] Visit [facility] [address] [place] [address] Taj Hall MD [address] [facility] [address] [place] [address] documented as of this encounter Visit Diagnoses Not on filedocumented in this encounter Care Teams Program Director/Air Personality Relationship Specialty Start Date End Date José Mejia MD [address] [place] [address] PCP - General Family Medicine 05/06/24 documented as of this encounter
--- OUTSIDE RECORDS SUMMARY | 2025-01-21 10:48 | XMS_ITS | Clinical Summary ---
Author Organization [facility] Address [address] [place] [address] Care Team Providers Care Tugboat Dispatcher Name Role Phone José Mejia MD Primary Care Provider + [phone] Allergies No known active allergies Medications Medication [...] 3:00 PM EST Office [facility] [place] [address] Taj Hall MD Status post total replacement of left hip (Primary Dx) from Last 3 Months Immunizations Name Administration Dates Next Due Tdap 05/04/2024 Social History Tobacco Use Types Packs/Day Years Used Date Smoking Tobacco: Never Passive Smoke Exposure: Never Smokeless Tobacco: Never Tobacco Cessation:Counseling Given: No [facility] Utilities Answer Date Recorded In the past 12 months has e electric, gas, oil, or water company threatened [...] place to sleep or slept in a mcfp (including now)? No 05/06/2024 Sex and Gender [...] 3:00 PM EST [facility] [address] [place] [address] Taj Hall MD [address] [place] [address] [address] [place] [address] Health Maintenance Due Date Last Done Comments Hepatitis C Virus Screening 1979 HIV Screening 1992 Hepatitis B Vaccines (1 of 3 - 19+ 3-dose series) 1998 Colonoscopy 2024 Influenza Vaccine 05/16/2024 COVID-19 Vaccine (1 - 2023-2 5 season) 2024 DTaP/Tdap/Td Vaccines (2 - T d or Tdap) 05/04/2034 05/04/2024 HPV Vaccines Aged Out No longer eligi ble based on patient's age to complete this topic Pneumococcal Vaccine: Pediat michael (0-5 Years) and At-Risk Patients (6 to 49 Years) Aged Out No longer eligible b ased on patient's age to complete this topic Medical Devices Implanted Type Area Detail Maker And Fitter Device Identifier Shelf Expiration Date Model / Serial / Lot 702-04-60g Shell Acetabular 60mm Hip Ch Tritanium Trdnt 2 G Sterl - [id number] Implanted:Qty : 1 on 05/06/2024 by Taj Hall MD at [facility] Joint Prosthesis Left: Hip [employer] - DIV STR [id number] 01/29/2029 702-04-6 0G / / [id number] 723-10-36g Insert Acetabular 36mm 10d G Hip X3 Trdnt - [id number] Implanted:Qty : 1 on 05/06/2024 by Taj Hall MD at [facility] Joint Prosthesis Left: Hip [employer] GENI [id number] 04/05/2028 723-10-3 6G / / [id number] Stem Femoral 114mm Pf Acld 2 V40 Purefix Ti 127d 7 50mm High - [id number] Implanted:Qty : 1 on 05/06/2024 by Taj Hall MD at [facility] Joint Prosthesis Left: Hip [employer] - DIV STR [id number] 12/17/2028 6721-073 7 / / [id number] 6570-0-136 Head Femoral +0mm Offset Taper 36mm Hip Blx D V40 Sterl - [id number] Implanted:Qty : 1 on 05/06/2024 by Taj Hall MD at [facility] Joint Prosthesis Left: Hip [employer] - DIV STR [id number] 11/27/2028 6570-0-1 36 / / [id number] 3240-5464 Screw Bone Trdnt 2 25mm 6.5mm Lp Hex Sterl - [id number] Implanted:Qty : 1 on 05/06/2024 by Taj Hall MD at [facility] Screw Left: Hip [employer] - DIV STR [id number] 10/02/2028 7030-652 5 / / [id number] 3092-7615 Screw Bone Trdnt 2 30mm 6.5mm Lp Hex Sterl - [id number] Implanted:Qty : 1 on 05/06/2024 by Taj Hall MD at [facility] Screw Left: Hip [employer] - DIV STR [id number] 12/26/2028 7030-653 0 / / [id number] 5094-5416 Screw Bone Trdnt 2 25mm 6.5mm Lp Hex Sterl - [id number] Implanted:Qty : 1 on 05/06/2024 by Taj Hall MD at [facility] Screw Left: Hip [employer] - DIV STR [id number] 12/19/2028 7030-652 5 / / [id number] 214.736 Screw Bone Flthrd Rvrs Cut Flut 36mm Ss 4.5mm 6.5mm 1.75mm - [id number] Implanted:Qty : 1 on 05/07/2024 by Raul Pina MD at [facility] Screw Right: Patella DEPUY SYNTHES - A STORM AND 214.736 / / 214.734 Screw Bone Flthrd Rvrs Cut Flut 34mm Ss 4.5mm 6.5mm 1.75mm - [id number] Implanted:Qty : 1 on 05/07/2024 by Raul Pina MD at [facility] Screw Right: Patella DE[employer] SYNTHES - A STORM AND 214.734 / / 219.91 Washer 10mm Orthopedic Ss 4.5mm Michelle Screw Nonst - [id number] Implanted:Qty : 1 on 05/07/2024 by Raul Pina MD at [facility] Washer/Nut Right: Patella [employer] SYNTHES - A STORM AND 219.91 / / 219.91 Washer 10mm Orthopedic Ss 4.5mm Michelle Screw Nonst - [id number] Implanted:Qty : 1 on 05/07/2024 by Raul Pina MD at [facility] Washer/Nut Right: Patella DEPU[employer] SYNTHES - A STORM AND 219.91 / / Explanted Type Area Detail Maker And Fitter Device Identifier Shelf Expiration Date Model / Serial / Lot [id number] Screw Bone Trdnt 2 35mm 6.5mm Lp Hex Sterl - [id number] Explanted:Qty : 1 on 05/06/2024 by Taj Hall MD at [facility] Screw Left: Hip [employer] - DIV STR [id number] 11/22/2028 3108-7914 / / [id number] Advance Directives * Full Code (Latest Code Status on File) Date Activated Date Inactivated Comments 05/06/2024 9:01 PM * Full Code Date Activated Date Inactivated Comments 05/04/2024 5:42 PM 05/06/2024 9:01 PM Care Teams Tugboat Dispatcher Relationship Specialty Start Date End Date José Mejia MD [address] [place] [address] PCP - General Family Medicine 05/06/24
[2025-01-21 13:08] LABS: MANUAL DIFF FLAG NO
[2025-01-21 13:22] LABS: Appearance Urine Clear; Color Urine Yellow; Glucose Urine UA Negative (Negative); Leukocyte Esterase Urine Negative (Negative); Nitrite Urine Negative (Negative); PH 5.5 (5.0-9.0); Urine Blood Negative (Negative); Urine Ketones Negative (Negative); Urine Protein Negative (Neg-Trace)
[2025-01-21 13:34] LABS: Basophils Percent Auto 0.7 % (0-2); Eosinophils Absolute Auto 0.3 X10*3/uL (0.0-0.4); Eosinophils Percent Auto 6.4 % (0-4); Hematocrit 45.9 % (42.0-52.0); Hemoglobin 15.8 g/dl (14.0-18.0); Imm Gran Abs Auto 0.01 X10*3/uL (0.00-0.03); Imm Gran Pct Auto 0.2 % (0.0-0.4); Lymphocytes Absolute Auto 1.8 X10*3/uL (1.2-4.9); Lymphocytes Percent Auto 41.5 % (20-40); Mean Corpuscular HGB Conc 34.4 g/dl (31.0-36.0); Mean Corpuscular Hemoglobin 29.7 pg (27.0-33.0); Mean Corpuscular Volume 86.3 fL (80.0-98.0); Mean Platelet Volume 10.9 fL (9.4-12.4); Monocytes Absolute Auto 0.4 X10*3/uL (0.1-1.2); Monocytes Percent Auto 10.4 % (2-11); Neutrophils Absolute Auto 1.7 x10*3/uL (2.0-8.3); Neutrophils Percent Auto 40.8 % (45-73); Platelet Count 189 X10*3/uL (160-400); Red Blood Count 5.32 X10*6/uL (4.60-5.80); Red Cell Distribution Width 12.9 % (11.0-16.0); White Blood Count 4.2 X10*3/uL (4.8-10.8)
[2025-01-21 14:27] LABS: Alanine Aminotransferase 31 U/L (0-40); Albumin Level 4.4 g/dL (3.5-5.0); Alkaline Phosphatase 59 U/L (39-117); Anion Gap 9 (12-20); Aspartate Amino Transferase 24 U/L (5-37); Bilirubin Total 0.6 mg/dL (0.0-1.0); Blood Urea Nitrogen 23 mg/dL (9-16); Calcium 9.3 mg/dL (8.4-10.2); Carbon Dioxide 23 mmol/L (22-29); Chloride 111 mmol/L (96-108); Cholesterol 250 mg/dL (<200); Estimated Glomerular Filt Rate > 60; Glucose Fasting 95 mg/dL (60-99); HDL Cholesterol 55 mg/dL (>40); LDL Cholesterol Calculated 171 mg/dL (<100); Potassium 4.4 mmol/L (3.3-5.1); Sodium 139 mmol/L (135-145); Total Protein 6.9 g/dL (6.5-8.0); Triglycerides 120 mg/dL (<150)
[2025-01-21 14:42] LABS: TSH reflex Free T4 1.04 uIU/mL (0.32-4.0)
== END 2025-01-21 09:37 | disposition home or self-care (01) ==
LOC: HO.HMGCLDS 09:36
PROVIDERS: PCP Nurse Practitioner Family; Visit Provider Nurse Practitioner Family
DX: Z00.01 Encounter for general adult medical examination with abnormal findings (principal); Z13.6 Encounter for screening for cardiovascular disorders
CPT/HCPCS: 36415; 80053; 80061; 81003; 84443; 85025

== ENCOUNTER 2025-02-17 11:38 | Outpatient (AMB) | payer OTHER, SELFPAY ==
--- NOTE | 2025-02-17 11:41 | MHC.OFFVIS ---
Vital Signs 02/17/25 11:57 Height 6 ft 5 in Weight 230 lb BMI 27.3 BP 138/92 H Blood Pressure Location Rt brachial Position Sitting Pulse 56 Pulse Source Pulse Oximeter Pulse Oximetry (%) 97 Oxygen Delivery Method Room Air Intake Visit Reasons: Colonoscopy Screening Intake Note: NEW PATIENT for initial colo screening. Chief Complaint; Pt reports having occasional reflux which he treats with OTC tums which does provide some relief. Pt has been noticing sx more frequently. Pt also reports mild to moderate GI upset which he has been attributing to his Chantix tx. No additional sx or concerns at this time. Genetic Physician Required: No Accompanied by: Self / Same As Patient Allergies No Known Allergies Allergy (Verified 02/17/25 11:53) HPI HPI Colonoscopy Screening: Details: 44 year old? male is here today for pre colonoscopy screening.? Patient was sent to us by his PCP.? This is his first colonoscopy screening.? Patient denies any gastrointestinal symptoms in the past or at present.? However patient does admit to occasional acid reflux depending on what he eats. Symptoms about once or twice a week. Patient tries avoiding dietary triggers. Denies any personal or family history of gastrointestinal disease, colon polyps, or CRC.? Denies history of difficulty with sedation or anesthesia in the past.? Negative for history of sleep apnea.? Denies any history of cardiac, renal, pulmonary, or hepatic disease.?? No history of infectious? diseases like hepatitis A, B, C, HIV or tuberculosis.? Patient is not on any anticoagulation [facility] Medical History Patellar fracture Closed displaced articular fracture of head of femur Laceration of right index finger Pneumomediastinum Rib fracture Right patella fracture Hip fracture, left Finger laceration Facial laceration Surgical History History of total left hip replacement Family History Father Hypertension Mother Hypertension Brother Testicular cancer Social History Housing: House Alcohol intake: current Alcohol intake frequency: a few times a week Alcohol type: beer Patient Tobacco Use Status: Current everyday Tobacco user Tobacco use type: Cigarette Cigarette Packs Per Day: 1 Cigarettes Per Day: 20 e-Cigarette/Vaping Use: Never Used Current occupational status: employed Cognitive needs: No Hearing needs: No Vision needs: No Review of Systems Const Denies weight gain and Denies weight loss ENT Reports no additional complaints, Denies dysphagia and Denies odynophagia Card Reports no additional complaints Resp Reports no additional complaints GI Denies abdominal pain, Denies belching, Denies melena, Denies bloating, Denies change in bowel habits, Denies dysphagia, Denies excessive flatus, Denies dyspepsia, Denies heartburn, Denies diarrhea, Denies loose stools, Denies nausea, Denies odynophagia and Denies vomiting Reports no additional complaints Musc Reports no additional complaints Neuro Reports no additional complaints Psych Reports no additional complaints Endo Reports no additional complaints Physical Exam Vital Signs: Last Vital Signs Pulse 56 02/17/25 11:57 BP 138/92 H 02/17/25 11:57 Pulse Ox 97 02/17/25 11:57 Oxygen Delivery Method Room Air 02/17/25 11:57 BMI result Body Mass Index 27.3 Const General: healthy appearing, no acute distress and well developed Nutritional Appearance: well nourished Orientation/consciousness: patient oriented x3 Resp Effort & Inspection: normal respiratory effort, able to speak in complete sentences, no tracheal deviation and symmetric chest movement Auscultation: clear to auscultation bilaterally Cardio Rate: regular rate GI Inspection: Yes normal to inspection and No distended Palpation (GI): Soft to palpation, not firm, nontender and No hepatosplenomegaly present Auscultation: normal bowel sounds General: Yes no CVA tenderness Back/Spine/Pelvis Back: no CVA tenderness Skin General skin exam: elasticity normal, turgor normal and dry skin Neuro General: patient oriented x3 Psych Appearance: grossly normal Mental Status: mental status grossly normal Assessment & Plan Assessment & Plan (1) Screening for colon cancer: Code(s): Z12.11 - Encounter for screening for malignant neoplasm of colon Category: Medical Plan Patient denies any cardiac or respiratory symptoms.? Occasional symptoms of acid reflux about once or twice a week. Patient uses Tums and it helps. Patient will try to avoid dietary triggers. Denies any issues with anesthesia in the past.? Denies any history of sleep apnea.? No history infectious diseases in the past or present.? Not on any anticoagulation therapy.? No family or personal history of colon cancer or polyps.? Patient denies melena, hematochezia, unintentional weight loss or ribbon like stools.? Discussed at length the pre-procedure,? prep, diet & medications as well as what to expect prior, during and after the procedure.?? Stressed the importance of good bowel prep.? Recommended the use of Vaseline or Calmoseptine OTC & baby wipes with bowel movements to promote comfort.? ?Patient verbalizes understanding and agrees to plan of care.? He was given the opportunity to ask questions and all questions answered.? We will see him after the procedure.? Medications: New bisacodyl (Dulcolax (bisacodyl)) take 4 tabs at noon the day before your colonoscopy 20 mg (4 x 5 mg) PO ONCE 1 day 4 tabs 0RF Z12.11 - Encounter for screening for malignant neoplasm of colon polyethylene glycol 3350 (Miralax) As directed by gastroenterology department at [facility] 238 grams PO ONCE 238 grams 0RF Z12.11 - Encounter for screening for malignant neoplasm of colon Coding Level of Care Code New Pt Level 3 (89568) Diagnoses Screening for colon cancer Z12.11 Time Spent (min) 40 Comment 30 minutes spent with patient and additional 10 minutes spent reviewing his records
[2025-02-17 11:57] VITALS: BP 138/92; PULSE 56; O2SAT 97; BMI 27.3
--- OUTSIDE RECORDS SUMMARY | 2025-02-17 13:27 | XMS_ITS | Clinical Summary ---
Author Organization [facility] Address [address] [place] [address] Care Team Providers Care Vice President Of Procurement Name Role Phone José Mejia MD Primary Care Provider + [phone] Allergies No known active allergies Medications naloxone (NARCAN) 0.4 mg/mL injectionIndication s:Closed fracture dislocation of left hip joint (HCC) Infuse 1 mL (0.4 mg total) into a venous catheter every 5 (five) minutes as needed for opioid reversal or respiratory depression. 05/10/20 24 Active acetaminophen (TYLENOL) 325 MG tabletIndications:Elsa miller fracture dislocation of left hip joint (HCC) Take 3 tablets (975 mg total) by mouth every 6 (six) hours around the clock. 05/10/20 24 Active senna-docusate (SENNA-S) 8.6-50 MGIndications:Close d fracture dislocation of left hip joint (HCC) Take 1 tablet by mouth nightly. 05/10/20 24 Active ondansetron (ZOFRAN) 4 MG/2ML injectionIndication s:Closed fracture dislocation of left hip joint (HCC) Infuse 2 mL (4 mg total) into a venous catheter 4 times daily (every 6 hours) as needed for nausea or vomiting. 05/10/20 24 Active lidocaine (LIDODERM) 5 % patchIndications:Cl osed fracture dislocation of left hip joint (HCC) Place 1 patch on the skin daily. Apply patch and leave on for 12 hours then remove. Patch may remain on skin for 12 hours per day. 05/11/20 24 Active baclofen (LIORESAL) 20 MG tabletIndications:C losed fracture dislocation of left hip joint (HCC) Take 1 tablet (20 mg total) by mouth every 8 (eight) hours around the clock. 05/10/20 Active multivitamin with minerals Tab tabletIndications:C losed fracture dislocation of left hip joint (HCC) Take 1 tablet by mouth daily. 05/11/20 Active ferrous sulfate 325 (65 FE) MG EC tabletIndications:C losed fracture dislocation of left hip joint (HCC) Take 1 tablet (325 mg total) by mouth 2 (two) times a day. Take 2 hours before or 4 hours after acid reducers. 05/10/20 Active gabapentin (NEURONTIN) 600 MG tabletIndications:C losed fracture dislocation of left hip joint (HCC) Take 1 tablet (600 mg total) by mouth every 8 (eight) hours around the clock. 05/10/20 Active enoxaparin (LOVENOX) 40 MG/0.4ML injectionIndication s:Prophylaxis of Venous Thromboembolism Inject 0.4 mL (40 mg total) under the skin every 12 (twelve) hours around the clock. 05/10/20 Active HYDROmorphone (DILAUDID) 2 MG tabletIndications:C losed fracture dislocation of left hip joint (HCC) Take 1 tablet (2 mg total) by mouth every 3 (three) hours as needed for moderate pain. Max Daily Amount: 16 mg 05/10/20 Active bisacodyl (DULCOLAX) 10 MG suppositoryIndicati ons:Closed fracture dislocation of left hip joint (HCC) Insert 1 suppository (10 mg total) into the rectum daily as needed for constipation. 05/10/20 Active magnesium hydroxide (MILK OF MAGNESIA) 400 mg/5 mL suspensionIndicatio ns:Closed fracture dislocation of left hip joint (HCC) Take 30 mL by mouth daily as needed for constipation. 05/10/20 Active tiZANidine (ZANAFLEX) 2 MG tabletIndications:C losed fracture dislocation of left hip joint (HCC) Take 1 tablet (2 mg total) by mouth every 8 (eight) hours around the clock. 05/10/20 Active polyethylene glycol 17 g packetIndications:C losed fracture dislocation of left hip joint (HCC) Take 1 packet (17 g total) by mouth 2 times a day. 05/10/20 Active HYDROmorphone (DILAUDID) 4 MG tabletIndications:C losed fracture dislocation of left hip joint (HCC) Take 1 tablet (4 mg total) by mouth every 3 (three) hours as needed for severe pain. Max Daily Amount: 32 mg 05/10/20 Active Active Problems Problem Noted Date Diagnosed [...] of finger of right hand 05/04/2024 09/11/2024 Immunizations Immunization Administration Dates Next Due Tdap 05/04/2024 Social History Tobacco Use Types Packs/Day Years Used Date Smoking Tobacco: Never Passive Smoke Exposure: Never Smokeless Tobacco: Never Tobacco Cessation:Counseling Given: No [facility] Utilities Answer Date Recorded In the past 12 months has [employer], gas, oil, or water [employer] threatened to shut off services in your [...] money to buy more. Never true 05/06/20 Within the past 12 months, t he [...] place to sleep or slept in a prison (including now)? No 05/06/2024 Sex and Gender Information Value Date Recorded Sex Assigned at Male 05/04/2024 11:44 AM EDT Legal Sex Male 11:21 AM EDT Gender Identity Male 05/04/2024 11:44 [...] 3:00 PM EST [facility] [address] [place] [address] Taj Hall MD [address] [place] [address] [address] [place], [place] [address] Health Maintenance Due Date Last Done Comments [...] this topic Medical Devices Implanted Type Area Special Procedure Technologist Device Identifier Shelf Expiration Date Model / Serial / Lot 702-04-60g Shell Acetabular 60mm Hip Ch Tritanium Trdnt 2 G Sterl - [id number] Implanted:Qt y: 1 on 05/06/2024 by Taj Hall MD at [facility] Joint Prosthesis Left: Hip [employer] - DIV STRY [id number] 01/29/2029 702-04-6 0G / / [id number] 723-10-36g Insert Acetabular 36mm 10d G Hip X3 Trdnt - [id number] Implanted:Qt y: 1 on 05/06/2024 by Taj Hall MD at [facility] Joint Prosthesis Left: Hip [employer] GENI [id number] 04/05/2028 723-10-3 6G / / [id number] 6896-9936 Stem Femoral 114mm Pf Acld 2 V40 Purefix Ti 127d 7 50mm High - [id number] Implanted:Qt y: 1 on 05/06/2024 by Taj Hall MD at [facility] Joint Prosthesis Left: Hip [employer] - DIV STRY [id number] 12/17/2028 6721-073 7 / / [id number] 6570-0-136 Head Femoral +0mm Offset Taper 36mm Hip Blx D V40 Sterl - [id number] Implanted:Qt y: 1 on 05/06/2024 by Taj Hall MD at [facility] Joint Prosthesis Left: Hip [employer] - DIV STRY [id number] 11/27/2028 6570-0-1 36 / / [id number] 0028-7455 Screw Bone Trdnt 2 25mm 6.5mm Lp Hex Sterl - [id number] Implanted:Qt y: 1 on 05/06/2024 by Taj Hall MD at [facility] Screw Left: Hip [employer] - DIV STRY [id number] 10/02/2028 7030-652 5 / / [id number] 3205-5075 Screw Bone Trdnt 2 30mm 6.5mm Lp Hex Sterl - [id number] Implanted:Qt y: 1 on 05/06/2024 by Taj Hall MD at [facility] Screw Left: Hip [employer] - DIV STRY [id number] 12/26/2028 7030-653 0 / / [id number] 1412-2107 Screw Bone Trdnt 2 25mm 6.5mm Lp Hex Sterl - [id number] Implanted:Qt y: 1 on 05/06/2024 by Taj Hall MD at [facility] Screw Left: Hip [employer] - DIV STRY [id number] 12/19/2028 7030-652 5 / / [id number] 214.736 Screw Bone Flthrd Rvrs Cut Flut 36mm Ss 4.5mm 6.5mm 1.75mm - [id number] Implanted:Qt y: 1 on 05/07/2024 by Raul Pina MD at [facility] Screw Right: Patella [employer]PU[employer] JOINT RECONSTRUCTION - A 214.736 / / 214.734 Screw Bone Flthrd Rvrs Cut Flut 34mm Ss 4.5mm 6.5mm 1.75mm - [id number] Implanted:Qt y: 1 on 05/07/2024 by Raul Pina MD at [facility] Screw Right: Patella DEPUY JOINT RECONSTRUCTION - A 214.734 / / 219.91 Washer 10mm Orthopedic Ss 4.5mm Michelle Screw Nonst - [id number] Implanted:Qt y: 1 on 05/07/2024 by Raul Pina MD at [facility] Washer/Nut Right: Patella [employer]PU[employer] JOINT RECONSTRUCTION - A 219.91 / / 219.91 Washer 10mm Orthopedic Ss 4.5mm Michelle Screw Nonst - [id number] Implanted:Qt y: 1 on 05/07/2024 by Raul Pina MD at [facility] Washer/Nut Right: Patella DEPU[employer] JOINT RECONSTRUCTION - A 219.91 / / Explanted Type Area Special Procedure Technologist Device Identifier Shelf Expiration Date Model / Serial / Lot [id number] Screw Bone Trdnt 2 35mm 6.5mm Lp Hex Sterl - [id number] Explanted:Qty : 1 on 05/06/2024 by Taj Hall MD at [facility] Screw Left: Hip [employer] DIV STRY [id number] 11/22/2028 6000-0308 / / [id number] [id number] [place] [id number] Advance Directives * Full Code (Latest Code Status on File) Date Activated Date Inactivated Comments 05/06/2024 9:01 PM * Full Code Date Activated Date Inactivated Comments 05/04/2024 5:42 PM 05/06/2024 9:01 PM Care Teams Vice President Of Procurement Relationship Specialty Start Date End Date José Mejia MD [address] [place] [address] PCP - General Family Medicine 05/06/24
--- OUTSIDE RECORDS SUMMARY | 2025-02-17 13:28 | XMS_ITS | Encounter Summary ---
Author Organization [facility] Address [address] [place] [address] Care Team Providers Care Education Program Coordinator Name Role Phone José Mejia MD Primary Care Provider + [phone] Encounter Details Date Type Department Care Team (Late st Contact Info) Description 06/14/2024 Scanned Document [facility] [address] [place] [address] Brooke Bolden [address] [facility] [address] [place] [address] Social History Tobacco Use Types Packs/Day Years Used Date Smoking Tobacco: Never Passive Smoke Exposure: Never Smokeless Tobacco: Never [facility] Utilities Answer Date Recorded In the past 12 months has [facility] electric, gas, oil, or water company [...] 3:00 PM EST Office [facility] [address] [place] [address] Taj Hall MD [address] [facility] [address] [place] [address] documented as of this encounter Visit Diagnoses Not on filedocumented in this encounter Care Teams Education Program Coordinator Relationship Specialty Start Date End Date José Mejia MD [address] [place] [address] PCP - General Family Medicine 05/06/24 documented as of this encounter
--- OUTSIDE RECORDS SUMMARY | 2025-02-17 13:28 | XMS_ITS | Encounter Summary ---
Author Organization [facility] Address [address] [place] [address] Care Team Providers Care Helper Shear Operator Name Role Phone José Mejia MD Primary Care Provider + [phone] Encounter Details Date Type Department Care Team (Late st Contact Info) Description 09/24/2024 Scanned Document [facility] [address] [place] [id number] [place] [address] [address] Social History Tobacco Use Types Packs/Day Years Used Date Smoking Tobacco: Never Passive Smoke Exposure: Never Smokeless Tobacco: Never [facility] Utilities Answer Date Recorded In the past 12 months has [employer] electric, gas, oil, or water company threatened [...] place to sleep or slept in a custodial (including now)? No 05/06/2024 Sex and Gender [...] PM EST Office Visit [facility] [address] [place] [address] Taj Hall MD [address] [place] [address] [address] [place] [address] documented as of this encounter Visit Diagnoses Not on filedocumented in this encounter Care Teams Helper Shear Operator Relationship Specialty Start Date End Date José Mejia MD [address] [place] [address] PCP - General Family Medicine 05/06/24 documented as of this encounter
== END 2025-02-17 13:21 | disposition home or self-care (01) ==
LOC: HO.HGI 11:39
PROVIDERS: PCP Nurse Practitioner Family; Visit Provider Nurse Practitioner Family
DX: Z01.818 Encounter for other preprocedural examination (principal); Z12.11 Encounter for screening for malignant neoplasm of colon
CPT/HCPCS: S0285

== ENCOUNTER 2025-05-12 15:48 | Outpatient (AMB) | payer OTHER, SELFPAY ==
--- NOTE | 2025-05-12 15:53 | A.OFFPC_ITS ---
Vital Signs 05/12/25 15:54 Height 6 ft 5 in Weight 226 lb BMI 26.8 BP 128/86 Blood Pressure Location Lt brachial Position Sitting Respiration 16 Pulse 66 Pulse Source Pulse Oximeter Temp 99.6 F Temp Source Oral Pulse Oximetry (%) 97 Oxygen Delivery Method Room Air Intake Visit Reasons: 6m follow up Bin Worker Required: No Accompanied by: Self / Same As Patient Allergies No Known Allergies Allergy (Verified 05/12/25 17:16) Medication List - Last Reconciled 05/12/25 by SU Barboza- baclofen 20 mg PO TID PRN 30 days ibuprofen 800 mg PO Q8H PRN 30 days Lactobacillus acidophilus 100 mg PO TID varenicline tartrate (Chantix) 1 mg PO BID Tobacco use date assessed: 05/12/25 Dental Screening Dental Screen Date: 05/12/25 Did you have a dental visit in the last 12 months?: No Did you have a dental problem in the last 6 months where you did not have access to dental care?: No Was dental information given to patient?: Patient declined HPI 6m follow up HPI Details Chief Complaint The patient presents for follow-up on dyslipidemia and smoking cessation. History of Present Illness The patient is a 45-year-old male presenting with follow-up for dyslipidemia, leukopenia, and smoking cessation. He was previously on statins but discontinued them to focus on dietary changes (age-30s), which led to significant weight loss and illness due to extreme dietary restrictions. The patient continues to smoke but has reduced his intake to three cigarettes daily with the aid of Chantix, and he denies any adverse effects from the medication. The patient was advised to repeat his laboratory tests, including a complete b lood count and lipid panel, to monitor his leukopenia and dyslipidemia. Social History - Tobacco use: Currently smokes three ci garettes daily, reduced with Chantix. - Dietary habits: Previously engaged in extreme dietary restrictions leading to illness. Health Maintenance - Advised to repeat laboratory tests inc luding CBC and lipid panel. Review of Systems - Psychiatric: Denies suicidal ideation or abnormal dreams. denies any cp, sob, n/v, dizziness, blurred vision, FLOYD. Physical Exam General: Cooperative, healthy appearing, comfortable, no acute distress and well developed Orientation: Patient oriented x3 Limitations: No limitations Head: Normal to inspection Ears: Hearing grossly normal bilaterally Nose: Normal external nose present Face and sinus: Normal facial exam Eyes: Appearance normal, both eyes and all related structures Neck: Normal visual inspection and Yes full ROM Respiratory: Lungs are fairly clear bilaterally Cardiovascular: Regular rate and rhythm. Normal S1 and S2 GI: Normal to inspection. Soft to palpation and nontender Skin: No rashes or lesions noted Neuro: Patient oriented x3 Extremities: Normal to inspection Results Plan The patient will undergo repeat laboratory testing, including a complete blood count and lipid panel, to assess the status of his leukopenia and dyslipidemia. If his cholesterol levels remain elevated, a low-dose statin will be considered. The patient is encouraged to continue reducing his smoking with the aid of Chantix, as he is currently down to three cigarettes per day. Discussion Notes I discussed with the patient the importance of repeating his laboratory tests to monitor his leukopenia and dyslipidemia. We talked about the potential need to restart statin therapy if his cholesterol remains elevated. I also emphasized the benefits of continuing to reduce smoking with Chantix, and the patient acknowledged understanding the plan and its importance. Patient Instructions - Schedule and complete repeat laborator y tests, including CBC and lipid panel. - Continue reducing smoking with Chantix , aiming to quit completely. - Follow a balanced diet and avoid extre me dietary restrictions. [facility] Medical History Patellar fracture Closed displaced articular fracture of head of femur Laceration of right index finger Pneumomediastinum Rib fracture Right patella fracture Hip fracture, left Finger laceration Facial laceration Surgical History History of total left hip replacement Family History Father Hypertension Mother Hypertension Brother Testicular cancer Social History Housing: House Alcohol intake: current Alcohol intake frequency: a few times a week Alcohol type: beer Patient Tobacco Use Status: Current everyday Tobacco user Tobacco use type: Cigarette Cigarette Packs Per Day: 1 Cigarettes Per Day: 20 e-Cigarette/Vaping Use: Never Used Current occupational status: employed Cognitive needs: No Hearing needs: No Vision needs: No Questionnaire Thrive Questionnaire Date Thrive assessed: 11/07/24 I am a: Patient What is your living situation today?: I have a steady place to live Within the past 12 months, did the food you bought not last and you didn't have the money to get more?: I choose not to answer this question Within the past 12 months, did you worry whether your food would run out before you got money to buy more?: I choose not to answer this question Do you have trouble paying for medicines?: I choose not to answer this question Do you have trouble getting transportation to medical appointments?: I choose not to answer this question Do you have trouble paying your heating and electricity bill?: I choose not to answer this question Do you have trouble taking care of your child, family member or friend?: I choose not to answer this question Do you have trouble with day-to-day activities such as bathing, preparing meals, shopping, managing finances, etc.?: I choose not to answer this question Are you currently unemployed and looking for a job?: I choose not to answer this question Are you interested in more education?: I choose not to answer this question Please select the resources that you would like help with: None Currently or been in a relationship where the following occur: No concerns reported THRIVE Score: 0 DIANE-7 AMB Questionnaire DIANE-7 Date DIANE - 7 assessed: 11/07/24 Source: Developed by Drs. Shiv Walton, Theodora Mccoy, Huseyin Maciel and colleagues, with an educational alee from [employer]. Physical exam (Primary Care) Vital Signs: Last Vital Signs Temp 99.6 F 05/12/25 15:54 Pulse 66 05/12/25 15:54 Resp 16 05/12/25 15:54 BP 128/86 05/12/25 15:54 Pulse Ox 97 05/12/25 15:54 Oxygen Delivery Method Room Air 05/12/25 15:54 BMI result Body Mass Index 26.8 Tobacco/Smoking Status: Tobacco use Status Tobacco use date assessed 05/12/25 05/12/25 15:59 Patient Tobacco Use Status Current everyday Tobacco 05/12/25 15:59 Tobacco use type Cigarette 05/12/25 15:59 e-Cigarette/Vaping Use Never Used 05/12/25 15:59 Thrive Assessment: Date of Thrive Assessment Date Thrive assessed 11/07/24 05/12/25 15:59 Currently or been in a relationship where the following occur: No concerns reported Coding Level of Care Code Est Pt Level 3 (88380) Diagnoses Smoker F17.200 Dyslipidemia E78.5 Leukopenia D72.819 Assessment & Plan Assessment & Plan (1) Smoker: Code(s): F17.200 - Nicotine dependence, unspecified, uncomplicated Category: Social Hx (2) Dyslipidemia: Code(s): E78.5 - Hyperlipidemia, unspecified Category: Medical (3) Leukopenia: Code(s): D72.819 - Decreased white blood cell count, unspecified Category: Medical Plan .
[2025-05-12 15:54] VITALS: BP 128/86; PULSE 66; RESP 16; TEMP 37.6; O2SAT 97; BMI 26.8
--- OUTSIDE RECORDS SUMMARY | 2025-05-12 16:00 | XMS_ITS | Clinical Summary ---
Author Organization [facility] Address [address] [place] [id number] Phone Care Team Providers Care Field Auditor Name Role Phone José Mejia NP Primary Care Provider + Allergies No known active allergies Medications ascorbic acid, vitamin C, (VITAMIN C) 500 MG tablet Take 500 mg by mouth daily. 4 Active baclofen (LIORESAL) 20 MG tablet Take 20 mg by mouth every 8 (eight) hours. 4 Active enoxaparin (LOVENOX) 40 mg/0.4 mL Syrg subcutaneous syringe Inject 40 mg under the skin daily. 4 Active ferrous sulfate 325 mg (65 mg [place] iron) tablet Take 325 mg by mouth 2 (two) times a day. 4 Active gabapentin (NEURONTIN) 300 MG capsule Take 600 mg by mouth every 8 (eight) hours. 4 Active HYDROmorphone (DILAUDID) 4 MG tablet Take 4 mg by mouth every 4 (four) hours as needed for pain (specific location in comments) (scale 7-10). 4 Active Lactobacillus acidophilus Cap Take 1 capsule by mouth 3 (three) times a day. 4 Active lidocaine 5 % Place 1 patch onto the skin daily. 4 Active melatonin 5 mg Tab Take 5 mg by mouth daily. 4 Active MULTIVITAMIN WITH MINERALS ORAL Take 1 tablet by mouth daily. 4 Active Social History Tobacco Use Types Packs/Day Years Used Date Smoking Tobacco: Never Assessed Home Health Assessment: Transportation Answer Date Recorded Lack of Transportation (Medical) No 06/06/2024 Lack of Transportation (Non-Medical) No 06/06/2024 Patient Unable or Declines to Respond No 06/06/2024 Education Answer Date Recorded Are you interested in more education? Not on marsha e 05/13/2024 Are you concerned about learning? Not on file 05/13/2024 No 05/13/2024 No 05/13/2024 Digital Access Answer Date Recorded No 05/13/2024 No 05/13/2024 Reliable internet access at home? Not on file 05/13/2024 Device with a working camera? Not on file Sex and Gender Information Value Date Recorded Sex Assigned at Not on file Legal Sex Male 1:58 PM EDT Gender Identity Not on file Sexual Orientation Not on file Last Filed Vital Signs Vital Sign Reading Time Taken Comments Blood Pressure 122/82 06/06/2024 2:30 PM EDT Pulse 78 06/06/2024 2:30 PM EDT Temperature 36.4 C (97.6 F) 06/06/2024 2:30 PM EDT Respiratory Rate 16 05/28/2024 11:35 AM EDT Oxygen Saturation 98% 06/06/2024 2:30 PM EDT Inhaled Oxygen Concentration - - Weight - - Height - - Body Mass Index - - Plan of Treatment Not on file Medical Devices [place] [id number] [employer] Care Teams Field Auditor Relationship Specialty Start Date End Date José Mejia NP [address] [place] [address] [email or web address] PCP - General Nurse Practitioner 05/16/24 Additional Source Comments The information contained in this document represents components of the legal health record. It is not the complete legal health record.[facility]
--- OUTSIDE RECORDS SUMMARY | 2025-05-12 16:00 | XMS_ITS ---
Author Name [facility] Organization Unknown Results Test Name/Text Value Interpretation Date Range Source Phosphate SerPl-mCnc 4.4 mg/dL Normal 05/10/2024 2.7 - 4. 5 [facility] Magnesium SerPl-mCnc 2.3 mg/dL Normal 05/10/2024 1.6 - 2. 7 [facility] CO2 SerPl-sCnc 25.0 mmol/L Normal 05/10/2024 22 - 33 HH CCT Chloride SerPl-sCnc 103.0 mmol/L Normal 05/10/2024 98 - 1 07 H[facility] Creat SerPl-mCnc 0.8 mg/dL Normal 05/10/2024 0.5 - 1.3 HH CCT BUN/Creat SerPl 23.0 Ratio Normal 05/10/2024 10 - 25 HH CCT Sodium SerPl-sCnc 137.0 mmol/L Normal 05/10/2024 136 - 14 5 H[facility]CT Potassium SerPl-sCnc 4.2 mmol/L Normal 05/10/2024 3.4 - 5 .3 H[facility] Calcium SerPl-mCnc 8.4 mg/dL Below low normal 05/10/2024 8.7 - 10.5 H[facility]CT BUN SerPl-mCnc 18.0 mg/dL Normal 05/10/2024 8 - [address] GFR/BSA.pred SerPlBld [id number] >90.0 Normal 05/10/2024 59 - HHCCT Anion Gap Bld-sCnc 9.0 Normal 05/10/2024 7 - 17 [facility] Glucose SerPl-mCnc 112.0 mg/dL Above high normal 05/10/2024 65 - 99 H[facility]CT MCH RBC Qn Auto 29.3 pg Normal 05/10/2024 26 - [address] Hgb Bld-mCnc 7.2 g/dL Below low normal 05/10/2024 13 - 17.7 HHCCT MCHC RBC Auto-mCnc 33.3 g/dL Normal 05/10/2024 30 - 36 [facility] RBC num Bld Auto 2.46 Mil/uL Below low normal 05/10/2024 4.5 - 6.2 H[facility] MCV RBC Auto 88.0 fL Normal 05/10/2024 80 - 100 [facility] RDW RBC Auto-Rto 13.8 % Normal 05/10/2024 11.5 - 14.5 HHCCT Hct VFr Bld Auto 21.6 % Below low normal 05/10/2024 39 - 54 [facility] Platelet num Bld Auto 211.0 Thou/uL Normal 05/10/2024 150 - 450 [facility] PMV Bld Auto 10.2 fL Normal 05/10/2024 7.5 - 12.5 H[facility]CT WBC num Bld Auto 5.9 Thou/uL Normal 05/10/2024 4 - 11 [facility] RDW RBC Auto-Rto 13.9 % Normal 05/10/2024 11.5 - 14.5 [facility]CT Platelet num Bld Auto 199.0 Thou/uL Normal 05/10/2024 150 - 450 [facility]CT Hgb Bld-mCnc 7.1 g/dL Below low normal 05/10/2024 13 - 17.7 H[facility]CT PMV Bld Auto 10.9 fL Normal 05/10/2024 7.5 - 12.5 H[facility]CT MCHC RBC Auto-mCnc 32.7 g/dL Normal 05/10/2024 30 - 36 [facility]CT WBC num Bld Auto 6.3 Thou/uL Normal 05/10/2024 4 - 11 [facility]CT MCH RBC Qn Auto 30.0 pg Normal 05/10/2024 26 - [address] RBC num Bld Auto 2.37 Mil/uL Below low normal 05/10/2024 4.5 - 6.2 H[facility]CT Hct VFr Bld Auto 21.7 % Below low normal 05/10/2024 39 - 54 H[facility]CT MCV RBC Auto 92.0 fL Normal 05/10/2024 80 - 100 [facility] Hgb Bld-mCnc 7.2 g/dL Below low normal 05/09/2024 13 - 17.7 H[facility]CT MCH RBC Qn Auto 29.8 pg Normal 05/09/2024 26 - [address] RDW RBC Auto-Rto 13.8 % Normal 05/09/2024 11.5 - 14.5 [facility] RBC num Bld Auto 2.42 Mil/uL Below low normal 05/09/2024 4.5 - 6.2 [facility] Platelet num Bld Auto 187.0 Thou/uL Normal 05/09/2024 150 - 450 [facility] WBC num Bld Auto 7.6 Thou/uL Normal 05/09/2024 4 - 11 [facility] PMV Bld Auto 10.2 fL Normal 05/09/2024 7.5 - 12.5 H[facility]CT MCHC RBC Auto-mCnc 33.0 g/dL Normal 05/09/2024 30 - 36 [facility]CT MCV RBC Auto 90.0 fL Normal 05/09/2024 80 - 100 H[facility]CT Hct VFr Bld Auto 21.8 % Below low normal 05/09/2024 39 - 54 [facility]CT Platelet num Bld Auto 155.0 Thou/uL Normal 05/08/2024 150 - 450 [facility]CT MCHC RBC Auto-mCnc 33.2 g/dL Normal 05/08/2024 30 - 36 [facility] WBC num Bld Auto 8.4 Thou/uL Normal 05/08/2024 4 - 11 [facility]CT PMV Bld Auto 10.6 fL Normal 05/08/2024 7.5 - 12.5 [facility]CT RBC num Bld Auto 2.52 Mil/uL Below low normal 05/08/2024 4.5 - 6.2 H[facility]CT Hct VFr Bld Auto 22.6 % Below low normal 05/08/2024 39 - 54 [facility]CT RDW RBC Auto-Rto 13.4 % Normal 05/08/2024 11.5 - 14.5 H[facility]CT MCH RBC Qn Auto 29.8 pg Normal 05/08/2024 26 - [address] MCV RBC Auto 90.0 fL Normal 05/08/2024 80 - 100 [facility]CT Hgb Bld-mCnc 7.5 g/dL Below low normal 05/08/2024 13 - 17.7 HHCCT Magnesium SerPl-mCnc 2.4 mg/dL Normal 05/08/2024 1.6 - 2. 7 HHCCT CO2 SerPl-sCnc 26.0 mmol/L Normal 05/08/2024 22 - 33 HH CCT BUN/Creat SerPl 16.0 Ratio Normal 05/08/2024 10 - 25 HH CCT GFR/BSA.pred SerPlBld [id number] >90.0 Normal 05/08/2024 59 - HHCCT Glucose SerPl-mCnc 130.0 mg/dL Above high normal 05/08/2024 65 - 99 H[facility]CT Potassium SerPl-sCnc 3.9 mmol/L Normal 05/08/2024 3.4 - 5 .3 H[facility]CT Calcium SerPl-mCnc 7.8 mg/dL Below low normal 05/08/2024 8.7 - 10.5 HHCCT Chloride SerPl-sCnc 107.0 mmol/L Normal 05/08/2024 98 - 1 07 H[facility]CT Creat SerPl-mCnc 0.9 mg/dL Normal 05/08/2024 0.5 - 1.3 HH CCT Anion Gap Bld-sCnc 8.0 Normal 05/08/2024 7 - 17 H[facility]CT Sodium SerPl-sCnc 141.0 mmol/L Normal 05/08/2024 136 - 14 5 H[facility]CT BUN SerPl-mCnc 14.0 mg/dL Normal 05/08/2024 8 - [address] Phosphate SerPl-mCnc 2.7 mg/dL Normal 05/08/2024 2.7 - 4. 5 [facility] Platelet num Bld Auto 161.0 Thou/uL Normal 05/08/2024 150 - 450 H[facility]CT MCH RBC Qn Auto 29.6 pg Normal 05/08/2024 26 - [address] Hgb Bld-mCnc 8.0 g/dL Below low normal 05/08/2024 13 - 17.7 HHCCT RDW RBC Auto-Rto 13.6 % Normal 05/08/2024 11.5 - 14.5 HHCCT Hct VFr Bld Auto 24.0 % Below low normal 05/08/2024 39 - 54 H[facility]CT MCV RBC Auto 89.0 fL Normal 05/08/2024 80 - 100 H[facility]CT MCHC RBC Auto-mCnc 33.3 g/dL Normal 05/08/2024 30 - 36 H[facility]CT PMV Bld Auto 10.5 fL Normal 05/08/2024 7.5 - 12.5 HHCCT WBC num Bld Auto 8.9 Thou/uL Normal 05/08/2024 4 - 11 H[facility]CT RBC num Bld Auto 2.7 Mil/uL Below low normal 05/08/2024 4.5 - 6.2 HHCCT Phosphate SerPl-mCnc 2.8 mg/dL Normal 05/08/2024 2.7 - 4. 5 HHCCT Magnesium SerPl-mCnc 2.1 mg/dL Normal 05/07/2024 1.6 - 2. 7 H[facility]CT BUN/Creat SerPl 17.0 Ratio Normal 05/07/2024 10 - 25 HH CCT GFR/BSA.pred SerPlBld HSS-PHH-YhOSqh >90.0 Normal 05/07/2024 59 - HHCCT Chloride SerPl-sCnc 104.0 mmol/L Normal 05/07/2024 98 - 1 07 HHCCT CO2 SerPl-sCnc 24.0 mmol/L Normal 05/07/2024 22 - 33 HH CCT Potassium SerPl-sCnc 4.2 mmol/L Normal 05/07/2024 3.4 - 5 .3 H[facility]CT Sodium SerPl-sCnc 137.0 mmol/L Normal 05/07/2024 136 - 14 5 H[facility]CT Glucose SerPl-mCnc 154.0 mg/dL Above high normal 05/07/2024 65 - 99 H[facility]CT BUN SerPl-mCnc 15.0 mg/dL Normal 05/07/2024 8 - [address] Creat SerPl-mCnc 0.9 mg/dL Normal 05/07/2024 0.5 - 1.3 HH CCT Calcium SerPl-mCnc 7.9 mg/dL Below low normal 05/07/2024 8.7 - 10.5 H[facility]CT Anion Gap Bld-sCnc 9.0 Normal 05/07/2024 7 - 17 [facility]CT Phosphate SerPl-mCnc 2.5 mg/dL Below low normal 05/07/2024 2 .7 - 4.5 H[facility]CT MCH RBC Qn Auto 29.7 pg Normal 05/07/2024 26 - [address] MCHC RBC Auto-mCnc 33.5 g/dL Normal 05/07/2024 30 - 36 HHCCT Hct VFr Bld Auto 27.2 % Below low normal 05/07/2024 39 - 54 H[facility]CT WBC num Bld Auto 8.7 Thou/uL Normal 05/07/2024 4 - 11 [facility]CT RBC num Bld Auto 3.06 Mil/uL Below low normal 05/07/2024 4.5 - 6.2 [facility]CT Platelet num Bld Auto 136.0 Thou/uL Below low normal 024 150 - 450 [facility]CT PMV Bld Auto 11.2 fL Normal 05/07/2024 7.5 - 12.5 H[facility]CT MCV RBC Auto 89.0 fL Normal 05/07/2024 80 - 100 [facility]CT RDW RBC Auto-Rto 13.2 % Normal 05/07/2024 11.5 - 14.5 HHCCT Hgb Bld-mCnc 9.1 g/dL Below low normal 05/07/2024 13 - 17.7 HHCCT Potassium SerPl-sCnc 4.1 mmol/L Normal 05/06/2024 3.4 - 5 .3 H[facility]CT Chloride SerPl-sCnc 103.0 mmol/L Normal 05/06/2024 98 - 1 07 H[facility]CT Sodium SerPl-sCnc 135.0 mmol/L Below low normal 05/06/2024 1 36 - 145 HHCCT GFR/BSA.pred SerPlBld BAB-BLR-[id number] >90.0 Normal 05/06/2024 59 - HHCCT BUN SerPl-mCnc 16.0 mg/dL Normal 05/06/2024 8 - [address] CO2 SerPl-sCnc 24.0 mmol/L Normal 05/06/2024 22 - 33 HH CCT Calcium SerPl-mCnc 8.4 mg/dL Below low normal 05/06/2024 8.7 - 10.5 [facility]CT Glucose SerPl-mCnc 111.0 mg/dL Above high normal 05/06/2024 65 - 99 H[facility]CT Anion Gap Bld-sCnc 8.0 Normal 05/06/2024 7 - 17 H[facility]CT BUN/Creat SerPl 16.0 Ratio Normal 05/06/2024 10 - 25 HH CCT Creat SerPl-mCnc 1.0 mg/dL Normal 05/06/2024 0.5 - 1.3 HH CCT INR PPP 1.0 Normal 05/06/2024 [facility]CT Prothrombin time 11.5 seconds Normal 05/06/2024 10 - 13.5 HHCCT Anticoagulant OTHER AGENT OR UNKNOWN Normal 05/06/2024 [facility] Platelet num Bld Auto 139.0 Thou/uL Below low normal 024 150 - 450 H[facility]CT Hct VFr Bld Auto 36.0 % Below low normal 05/06/2024 39 - 54 [facility]CT WBC num Bld Auto 7.5 Thou/uL Normal 05/06/2024 4 - 11 [facility]CT Hgb Bld-mCnc 11.8 g/dL Below low normal 05/06/2024 13 - 17.7 HHCCT PMV Bld Auto 11.0 fL Normal 05/06/2024 7.5 - 12.5 HHCCT MCH RBC Qn Auto 29.4 pg Normal 05/06/2024 26 - [address] RDW RBC Auto-Rto 13.4 % Normal 05/06/2024 11.5 - 14.5 H[facility]CT RBC num Bld Auto 4.02 Mil/uL Below low normal 05/06/2024 4.5 - 6.2 HHCCT MCV RBC Auto 90.0 fL Normal 05/06/2024 80 - 100 H[facility]CT MCHC RBC Auto-mCnc 32.8 g/dL Normal 05/06/2024 30 - 36 [facility] Result Not Detected Normal 05/06/2024 - HHCCT 25(OH)D3 SerPl-mCnc 19.0 ng/mL Below low normal 05/05/2024 3 0 - 100 [facility]CT Chloride SerPl-sCnc 106.0 mmol/L Normal 05/05/2024 98 - 1 07 H[facility]CT Calcium SerPl-mCnc 8.2 mg/dL Below low normal 05/05/2024 8.7 - 10.5 [facility]CT BUN/Creat SerPl 19.0 Ratio Normal 05/05/2024 10 - 25 HH CCT Sodium SerPl-sCnc 139.0 mmol/L Normal 05/05/2024 136 - 14 5 [facility]CT CO2 SerPl-sCnc 21.0 mmol/L Below low normal 05/05/2024 22 - 33 H[facility]CT BUN SerPl-mCnc 19.0 mg/dL Normal 05/05/2024 8 - [address] Glucose SerPl-mCnc 130.0 mg/dL Above high normal 05/05/2024 65 - 99 H[facility]CT Creat SerPl-mCnc 1.0 mg/dL Normal 05/05/2024 0.5 - 1.3 HH CCT Anion Gap Bld-sCnc 12.0 Normal 05/05/2024 7 - 17 H[facility]CT GFR/BSA.pred SerPlBld [id number] >90.0 Normal 05/05/2024 59 - HHCCT Potassium SerPl-sCnc 4.0 mmol/L Normal 05/05/2024 3.4 - 5 .3 HHCCT Prealb SerPl-mCnc 23.0 mg/dL Normal 05/05/2024 20 - 40 H[facility]CT Transferrin SerPl-mCnc 207.0 mg/dL Normal 05/05/2024 200 - 360 H[facility]CT Albumin SerPl-mCnc 3.8 g/dL Normal 05/05/2024 3.5 - 5 HHCCT INR PPP 1.1 Normal 05/05/2024 H[facility]CT Prothrombin time 12.1 seconds Normal 05/05/2024 10 - 13.5 H[facility]CT Anticoagulant OTHER AGENT OR UNKNOWN Normal 05/05/2024 HHCCT Monocytes/leuk NFr Bld Auto 11.5 % Normal 05/05/2024 H[facility]CT Monocytes num Bld Auto 1.01 Thou/uL Normal 05/05/2024 0.2 - 1.5 HHCCT Eosinophil num Bld Auto 0.01 Thou/uL Normal 05/05/2024 0 - 0.7 HHCCT Basophils num Bld Auto 0.02 Thou/uL Normal 05/05/2024 0 - 0.2 HHCCT Imm Granulocytes num Bld Auto 0.02 Thou/uL Normal 05/05/2024 0 - 0.1 HHCCT Imm Granulocytes/leuk NFr Bld Auto 0.2 % Normal 05/05/2024 HHCCT Neutrophils num Bld Auto 6.3 Thou/uL Normal 05/05/2024 2 - 7.5 HHCCT Lymphocytes num Bld Auto 1.45 Thou/uL Below low normal 05/05/2024 1.5 - 4.5 H[facility]CT Lymphocytes/leuk NFr Bld Auto 16.5 % Normal 05/05/2024 H[facility]CT Basophils/leuk NFr Bld Auto 0.2 % Normal 05/05/2024 H[facility]CT Neutrophils/leuk NFr Bld Auto 71.5 % Normal 05/05/2024 H[facility]CT Eosinophil/leuk NFr Bld Auto 0.1 % Normal 05/05/2024 HHCCT Hgb Bld-mCnc 12.9 g/dL Below low normal 05/05/2024 13 - 17.7 HHCCT RBC num Bld Auto 4.34 Mil/uL Below low normal 05/05/2024 4.5 - 6.2 HHCCT MCHC RBC Auto-mCnc 33.2 g/dL Normal 05/05/2024 30 - 36 H[facility]CT PMV Bld Auto 10.9 fL Normal 05/05/2024 7.5 - 12.5 H[facility]CT Platelet num Bld Auto 159.0 Thou/uL Normal 05/05/2024 150 - 450 H[facility]CT MCH RBC Qn Auto 29.7 pg Normal 05/05/2024 26 - [address] Hct VFr Bld Auto 38.9 % Below low normal 05/05/2024 39 - 54 HHCCT MCV RBC Auto 90.0 fL Normal 05/05/2024 80 - 100 H[facility]CT RDW RBC Auto-Rto 13.5 % Normal 05/05/2024 11.5 - 14.5 HHCCT WBC num Bld Auto 8.8 Thou/uL Normal 05/05/2024 4 - 11 HHCCT Lactate SerPl-sCnc 1.6 mmol/L Normal 05/04/2024 0.5 - 1.9 HHCCT Bilirub SerPl-mCnc 0.4 mg/dL Normal 05/04/2024 0.2 - 1 H[facility]CT Albumin/Glob SerPl 1.7 Ratio Normal 05/04/2024 1 - 3 [facility]CT CO2 SerPl-sCnc 20.0 mmol/L Below low normal 05/04/2024 22 - 33 [facility]CT Glucose SerPl-mCnc 122.0 mg/dL Above high normal 05/04/2024 65 - 99 H[facility]CT Potassium SerPl-sCnc 4.7 mmol/L Normal 05/04/2024 3.4 - 5 .3 H[facility]CT BUN SerPl-mCnc 21.0 mg/dL Normal 05/04/2024 8 - [address] GFR/BSA.pred SerPlBld [id number] >90.0 Normal 05/04/2024 59 - HHCCT Globulin Ser Calc-mCnc 2.3 g/dL Normal 05/04/2024 1.5 - 3.9 H[facility]CT Chloride SerPl-sCnc 107.0 mmol/L Normal 05/04/2024 98 - 1 07 HHCCT Albumin SerPl-mCnc 4.0 g/dL Normal 05/04/2024 3.5 - 5 HHCCT ALT SerPl-cCnc 80.0 U/L Above high normal 05/04/2024 10 - 5 5 HHCCT ALP SerPl-cCnc 47.0 U/L Normal 05/04/2024 45 - 128 [facility] T Sodium SerPl-sCnc 139.0 mmol/L Normal 05/04/2024 136 - 14 5 HHCCT Prot SerPl-mCnc 6.3 g/dL Normal 05/04/2024 6.3 - 8.[address] Creat SerPl-mCnc 0.9 mg/dL Normal 05/04/2024 0.5 - 1.3 HH CCT Anion Gap Bld-sCnc 12.0 Normal 05/04/2024 7 - 17 H[facility]CT Calcium SerPl-mCnc 8.6 mg/dL Below low normal 05/04/2024 8.7 - 10.5 H[facility]CT BUN/Creat SerPl 23.0 Ratio Normal 05/04/2024 10 - 25 HH CCT AST SerPl-cCnc 80.0 U/L Above high normal 05/04/2024 10 - 5 5 HHCCT PMV Bld Auto 11.5 fL Normal 05/04/2024 7.5 - 12.5 HHCCT MCH RBC Qn Auto 29.9 pg Normal 05/04/2024 26 - [address] Imm Granulocytes/leuk NFr Bld Auto 0.4 % Normal 05/04/2024 [facility]CT Platelet num Bld Auto 185.0 Thou/uL Normal 05/04/2024 150 - 450 H[facility]CT Imm Granulocytes num Bld Auto 0.05 Thou/uL Normal 05/04/2024 0 - 0.1 HHCCT Eosinophil/leuk NFr Bld Auto 0.0 % Normal 05/04/2024 HHCCT MCHC RBC Auto-mCnc 33.7 g/dL Normal 05/04/2024 30 - 36 HHCCT Eosinophil num Bld Auto 0.0 Thou/uL Normal 05/04/2024 0 - 0.7 HHCCT Basophils/leuk NFr Bld Auto 0.1 % Normal 05/04/2024 [facility]CT RDW RBC Auto-Rto 13.6 % Normal 05/04/2024 11.5 - 14.5 HHCCT Hgb Bld-mCnc 13.9 g/dL Normal 05/04/2024 13 - 17.7 HHCCT Lymphocytes num Bld Auto 0.58 Thou/uL Below low normal 05/04/2024 1.5 - 4.5 HHCCT WBC num Bld Auto 11.9 Thou/uL Above high normal 05/04/2024 4 - 11 HHCCT Basophils num Bld Auto 0.01 Thou/uL Normal 05/04/2024 0 - 0.2 HHCCT MCV RBC Auto 89.0 fL Normal 05/04/2024 80 - 100 H[facility]CT Monocytes num Bld Auto 1.07 Thou/uL Normal 05/04/2024 0.2 - 1.5 HHCCT Monocytes/leuk NFr Bld Auto 9.0 % Normal 05/04/2024 HHCCT Lymphocytes/leuk NFr Bld Auto 4.9 % Normal 05/04/2024 HHCCT Hct VFr Bld Auto 41.2 % Normal 05/04/2024 39 - 54 HH CCT Neutrophils num Bld Auto 10.15 Thou/uL Above high normal 05/04/2024 2 - 7.5 HHCCT Neutrophils/leuk NFr Bld Auto 85.6 % Normal 05/04/2024 HHCCT RBC num Bld Auto 4.65 Mil/uL Normal 05/04/2024 4.5 - 6.2 HHCCT POC Glucose 135.0 mg/dL Above high normal 05/04/2024 65 - 99 [facility]CT Oxycodone Ur Ql Scn Negative Normal 05/04/2024 - [facility] Cannabinoids Ur Ql Scn>50 ng/mL Positive Abnormal 05/04/2024 - [facility] Opiates Ur Ql Scn>300 ng/mL Negative Normal 05/04/2024 - [facility] Benzodiaz Ur Ql Scn>200 ng/mL Negative Normal 05/04/2024 - [facility] Barbiturates Ur Ql Scn>200 ng/mL Negative Normal 05/04/2024 - [facility] fentaNYL+Norfentanyl Ur Ql Scn Positive Abnormal 05/04/2024 - [facility] BZE Ur Ql Negative Normal 05/04/2024 - [facility] Amphetamines Ur Ql Negative Normal 05/04/2024 - [facility] RBC num/area UrnS HPF 10.0 per hpf Above high normal 024 0 - 4 H[facility]CT WBC num/area UrnS HPF 1.0 per hpf Normal 05/04/2024 0 - 4 [facility]CT Leukocyte esterase Ur Ql Strip Negative Normal 05/04/2024 - [facility] Glucose Ur Strip-mCnc Negative Normal 05/04/2024 - [facility] Hgb Ur Ql Strip Moderate Abnormal 05/04/2024 - [facility] Nitrite Ur Ql Strip Negative Normal 05/04/2024 - [facility] Clarity Ur Clear Normal 05/04/2024 [facility] Ketones Ur Strip-mCnc Negative Normal 05/04/2024 - [facility] Sp Gr Ur Strip 1.02 Normal 05/04/2024 1.003 - 1.03 H [facility] Prot Ur Strip-mCnc Small (30 mg/dL) Abnormal 05/04/2024 - [facility] Bilirub Ur Strip-mCnc Negative Normal 05/04/2024 - [facility] Color Ur Yellow Normal 05/04/2024 [facility] pH Ur Strip 6.0 Normal 05/04/2024 5 - 8 [facility]CT Albumin/Glob SerPl 1.9 Ratio Normal 05/04/2024 [facility] ALT SerPl-cCnc 91.0 U/L Above high normal 05/04/2024 10 - 5 5 H[facility]CT Potassium SerPl-sCnc 4.0 mmol/L Normal 05/04/2024 3.4 - 5 .3 HHCCT Anion Gap Bld-sCnc 13.0 Normal 05/04/2024 7 - 17 H[facility]CT Creat SerPl-mCnc 1.0 mg/dL Normal 05/04/2024 0.5 - 1.3 HH CCT Globulin Ser Calc-mCnc 2.5 g/dL Normal 05/04/2024 1.5 - 3.9 HHCCT Sodium SerPl-sCnc 141.0 mmol/L Normal 05/04/2024 136 - 14 5 HHCCT Chloride SerPl-sCnc 107.0 mmol/L Normal 05/04/2024 98 - 1 07 HHCCT ALP SerPl-cCnc 54.0 U/L Normal 05/04/2024 45 - 128 [facility] T BUN SerPl-mCnc 24.0 mg/dL Above high normal 05/04/2024 8 - 2 1 H[facility]CT BUN/Creat SerPl 24.0 Ratio Normal 05/04/2024 10 - 25 HH CCT Calcium SerPl-mCnc 9.2 mg/dL Normal 05/04/2024 8.7 - 10.5 [facility]CT Glucose SerPl-mCnc 169.0 mg/dL Above high normal 05/04/2024 65 - 99 HHCCT Albumin SerPl-mCnc 4.7 g/dL Normal 05/04/2024 3.5 - 5 HHCCT Bilirub SerPl-mCnc 0.5 mg/dL Normal 05/04/2024 0.2 - 1 H[facility]CT CO2 SerPl-sCnc 21.0 mmol/L Below low normal 05/04/2024 22 - 33 HHCCT AST SerPl-cCnc 80.0 U/L Above high normal 05/04/2024 10 - 5 5 HHCCT Prot SerPl-mCnc 7.2 g/dL Normal 05/04/2024 6.3 - 8.[address] GFR/BSA.pred SerPlBld [id number]-[id number] 60.0 Normal 05/04/2024 59 - HHCCT Monocytes num Bld Auto 0.58 Thou/uL Normal 05/04/2024 0.2 - 1.5 HHCCT Hct VFr Bld Auto 48.2 % Normal 05/04/2024 39 - 54 HH CCT Basophils/leuk NFr Bld Auto 0.7 % Normal 05/04/2024 [facility]CT MCV RBC Auto 90.0 fL Normal 05/04/2024 80 - 100 H[facility]CT Neutrophils/leuk NFr Bld Auto 52.9 % Normal 05/04/2024 H[facility]CT Eosinophil num Bld Auto 0.16 Thou/uL Normal 05/04/2024 0 - 0.7 HHCCT MCH RBC Qn Auto 29.9 pg Normal 05/04/2024 26 - [address] Platelet num Bld Auto 211.0 Thou/uL Normal 05/04/2024 150 - 450 H[facility]CT RBC num Bld Auto 5.36 Mil/uL Normal 05/04/2024 4.5 - 6.2 HHCCT Imm Granulocytes/leuk NFr Bld Auto 1.0 % Normal 05/04/2024 [facility]CT Eosinophil/leuk NFr Bld Auto 2.3 % Normal 05/04/2024 HHCCT Basophils num Bld Auto 0.05 Thou/uL Normal 05/04/2024 0 - 0.2 HHCCT Hgb Bld-mCnc 16.0 g/dL Normal 05/04/2024 13 - 17.7 HHCCT MCHC RBC Auto-mCnc 33.2 g/dL Normal 05/04/2024 30 - 36 HHCCT Monocytes/leuk NFr Bld Auto 8.4 % Normal 05/04/2024 HHCCT Lymphocytes num Bld Auto 2.39 Thou/uL Normal 05/04/2024 1.5 - 4.5 HHCCT PMV Bld Auto 11.0 fL Normal 05/04/2024 7.5 - 12.5 HHCCT Lymphocytes/leuk NFr Bld Auto 34.7 % Normal 05/04/2024 HHCCT WBC num Bld Auto 6.9 Thou/uL Normal 05/04/2024 4 - 11 HHCCT RDW RBC Auto-Rto 13.4 % Normal 05/04/2024 11.5 - 14.5 HHCCT Imm Granulocytes num Bld Auto 0.07 Thou/uL Normal 05/04/2024 0 - 0.1 HHCCT Neutrophils num Bld Auto 3.64 Thou/uL Normal 05/04/2024 2 - 7.5 [facility]CT History of Medication Use Medication Directions Dispensed Refills Start Date End Date Stat multivitamin with minerals Tab tablet Take 1 tablet by mouth daily. 05/11/2024 06/11/2024 active acetaminophen (TYLENOL) 325 MG tablet Take 3 tablets (975 mg total) by mouth every 6 (six) hours around the clock. 05/10/2024 06/10/2024 active bisacodyl (DULCOLAX) 10 MG suppository Insert 1 suppository (10 mg total) into the rectum daily as needed for constipation. 05/10/2024 06/10/2024 active polyethylene glycol 17 g packet Take 1 packet (17 g total) by mouth 2 times a day. 05/10/2024 06/10/2024 active senna-docusate (SENNA-S) 8.6-50 MG Take 1 tablet by mouth nightly. 05/10/2024 06/10/2024 active tiZANidine (ZANAFLEX) 2 MG tablet Take 1 tablet (2 mg total) by mouth every 8 (eight) hours around the clock. 05/10/2024 06/10/2024 active enoxaparin (LOVENOX) 40 MG/0.4ML injection Inject 0.4 mL (40 mg total) under the skin every 12 (twelve) hours around the clock. 05/10/2024 active HYDROmorphone (DILAUDID) 2 MG tablet Take 1 tablet (2 mg total) by mouth every 3 (three) hours as needed for moderate pain. Max Daily Amount: 16 mg 05/10/2024 active HYDROmorphone (DILAUDID) 4 MG tablet Take 1 tablet (4 mg total) by mouth every 3 (three) hours as needed for severe pain. Max Daily Amount: 32 mg 05/10/2024 active naloxone (NARCAN) 0.4 mg/mL injection Infuse 1 mL (0.4 mg total) into a venous catheter every 5 (five) minutes as needed for opioid reversal or respiratory depression. 05/10/2024 active Problems Problem Status Onset Date Problem Type Date of Resolution Source Closed fracture dislocation of left hip joint active 2024-05-04 ProblemAct [facility] Status post total replacement of left hip active [facility]counterDiagnosisAct [facility] Closed disp articular fracture of head of left femur with malunion active 2024-05-04 ProblemAct [facility] Closed fracture of left acetabulum active 2024-05-04 ProblemAct [facility] Pneumomediastinum active 2024-05-04 ProblemAct [facility] Fracture of multiple ribs of right side active 2024-05-04 ProblemAct [facility] Transaminitis active 2024-05-04 ProblemAct [facility] T Right patella fracture active 2024-05-04 ProblemAct [facility] Immunizations Vaccine Date Source Lot Number Status Tdap 05/04/2024 [facility] [id number] completed Encounters Encounter Type Encounter Reason Primary Diagnosis Location Date Ambulatory Follow-up Follow-up [facility] 11/12/2024 [facility] 09/10/2024 Ambulatory Pain in right knee Pain in right knee [facility] [employer] 09/10/2024 [facility] 08/06/2024 Ambulatory Presence of left artificial hip joint Presence of left artificial hip joint [facility] Other fracture of right patella, initial encounter for closed fracture Other fracture of right patella, initial encounter for closed fracture [facility] 07/30/2024 [facility] 06/25/2024 Ambulatory Other fracture of right patella, initial encounter for closed fracture Other fracture of right patella, initial encounter for closed fracture [facility] 06/25/2024 [facility] 06/18/2024 [facility]ulatory [facility] 06/04/2024 Ambulatory Other fracture of right patella, initial encounter for closed fracture Other fracture of right patella, initial encounter for closed fracture [facility] 06/04/2024 Ambulatory [facility] 05/21/2024 Ambulatory Presence of left artificial hip joint Presence of left artificial hip joint [facility] 05/21/2024 Inpatient Displaced articular fracture of head of left femur, subsequent encounter for closed fracture with malunion Displaced articular fracture of head of left femur, subsequent encounter for closed fracture with malunion [facility] 05/04/2024 Emergency Fracture of unspecified part of neck of unspecified femur, initial encounter for closed fracture Fracture of unspecified part of neck of unspecified femur, initial encounter for closed fracture [facility] 05/04/2024 Care Team Organization Name Specialty Phone Email Start Date End Da te [facility]YLOR [facility] Primary [facility] 05/06/2024 [facility] Of Distribution 05/04/2024 01/01/2025 [facility] 05/04/2024 [facility] PROVIDER SYSTEM Primary Care 05/04/2024
--- OUTSIDE RECORDS SUMMARY | 2025-05-12 16:00 | XMS_ITS | Clinical Summary ---
Author Organization [facility] Address [address] [place] [address] Care Team Providers Care Rn Forensic Name Role Phone José Mejia MD Primary Care Provider + [phone] Allergies No known active allergies Medications naloxone [...] Smokeless Tobacco: Never Tobacco Cessation:Counseling Given: No [facility] Utilities Answer Date Recorded In the past 12 months has [email or web address], gas, oil, or water [employer] threatened to shut off services in your [...] place to sleep or slept in a nursing home (including now)? No 05/06/2024 Sex and [...] 66 05/10/2024 7:55 AM EDT Temperature 36.8 C (98.2 F) 05/10/2024 7:55 AM EDT Respiratory Rate 18 05/10/2024 7:55 AM EDT [...] 3:00 PM EST [facility] Visit [facility] [address] [place] [address] Taj Hall MD [address] [place] [address] [address] [place], [place] [address] Health Maintenance Due Date Last Done Comments Hepatitis C Virus Screening 1979 HIV Screening 1992 Hepatitis B Vaccines (1 of 3 - 19+ 3-dose series) 1998 Colonoscopy 2024 COVID-19 Vaccine (1 - 2023-2 5 season) 2024 Influenza Vaccine 05/16/2025 DTaP/Tdap/Td Vaccines (2 - T d or Tdap) 05/04/2034 05/04/2024 Pneumococcal Vaccine: Pediat michael (0-5 Years) and At-Risk Patients (6 to 49 Years) Aged Out No longer eligible b ased on patient's age to complete this topic Medical Devices Implanted Type Area Chiropractic Doctor Device Identifier Shelf Expiration Date Model / Serial / Lot 702-04-60g Shell Acetabular 60mm Hip Ch Tritanium Trdnt 2 G Sterl - [id number] Implanted:Qty : 1 on 05/06/2024 by Taj Hall MD at [facility] Joint Prosthesis Left: Hip [employer] - DIV STR [id number] 01/29/2029 702-04-6 0G / / [id number] 723-10-36g Insert Acetabular 36mm 10d G Hip X3 Trdnt - [id number] Implanted:Qty : 1 on 05/06/2024 by Taj Hall MD at [facility] Joint Prosthesis Left: Hip [employer] GENI [id number] 04/05/2028 723-10-3 6G / / [id number] Stem Femoral 114mm Pf Acld 2 V40 Purefix Ti 127d 7 50mm High - [id number] Implanted:Qty : 1 on 05/06/2024 by Taj Hall MD at [facility] Joint Prosthesis Left: Hip [employer] - DIV STR [id number] 12/17/2028 6721-073 7 / / [id number] 6570-0-136 Head Femoral +0mm Offset Taper 36mm Hip Blx D V40 Sterl - [id number] Implanted:Qty : 1 on 05/06/2024 by Taj Hall MD at [facility] Joint Prosthesis Left: Hip [employer] - DIV STR [id number] 11/27/2028 6570-0-1 36 / / [id number] 6750-0403 Screw Bone Trdnt 2 25mm 6.5mm Lp Hex Sterl - [id number] Implanted:Qty : 1 on 05/06/2024 by Taj Hall MD at [facility] Screw Left: Hip [employer] - DIV STR [id number] 10/02/2028 7030-652 5 / / [id number] Screw Bone Trdnt 2 30mm 6.5mm Lp Hex Sterl - [id number] Implanted:Qty : 1 on 05/06/2024 by Taj Hall MD at [facility] Screw Left: Hip [employer] - DIV STR [id number] 12/26/2028 7030-653 0 / / [id number] Screw Bone Trdnt 2 25mm 6.5mm Lp Hex Sterl - [id number] Implanted:Qty : 1 on 05/06/2024 by Tja Hall MD at [facility] Screw Left: Hip [employer] - DIV STR [id number] 12/19/2028 7030-652 5 / / [id number] 214.736 Screw Bone Flthrd Rvrs Cut Flut 36mm Ss 4.5mm 6.5mm 1.75mm - [id number] Implanted:Qty : 1 on 05/07/2024 by Raul Pina MD at [facility] Screw Right: Patella [employer] - A STROM AND 214.736 / / 214.734 Screw Bone Flthrd Rvrs Cut Flut 34mm Ss 4.5mm 6.5mm 1.75mm - [id number] Implanted:Qty : 1 on 05/07/2024 by Raul Pina MD at [facility] Screw Right: Patella [employer] - A STORM AND 214.734 / / 219.91 Washer 10mm Orthopedic Ss 4.5mm Michelle Screw Nonst - [id number] Implanted:Qty : 1 on 05/07/2024 by Raul Pina MD at [facility] Washer/Nut Right: Patella [employer] - A STORM AND 219.91 / / 219.91 Washer 10mm Orthopedic Ss 4.5mm Michelle Screw Nonst - [id number] Implanted:Qty : 1 on 05/07/2024 by Raul Pina MD at [facility] Washer/Nut Right: Patella [employer] - A STORM AND 219.91 / / Explanted Type Area Chiropractic Doctor Device Identifier Shelf Expiration Date Model / Serial / Lot [id number] Screw Bone Trdnt 2 35mm 6.5mm Lp Hex Sterl - [id number] Explanted:Qty : 1 on 05/06/2024 by Taj Hall MD at [facility] Screw Left: Hip [employer] - DIV STR [id number] 11/22/2028 8852-8707 / / [id number] Insurance [employer] Advance Directives * Full Code (Latest Code Status on File) Date Activated Date Inactivated Comments 05/06/2024 9:01 PM * Full Code Date Activated Date Inactivated Comments 05/04/2024 5:42 PM 05/06/2024 9:01 PM Care Teams Rn Forensic Relationship Specialty Start Date End Date José Mejia MD [address] [place] [address] PCP - General Family Medicine 05/06/24
== END 2025-05-12 17:00 ==
LOC: HO.HMCC 15:49
PROVIDERS: PCP Nurse Practitioner Family; Visit Provider Nurse Practitioner Family
DX: F17.200 Nicotine dependence, unspecified, uncomplicated (principal); E78.5 Hyperlipidemia, unspecified; D72.819 Decreased white blood cell count, unspecified

== ENCOUNTER 2025-07-17 09:11 | Outpatient (REF) | payer OTHER, SELFPAY ==
--- OUTSIDE RECORDS SUMMARY | 2025-07-17 09:57 | XMS_ITS | Clinical Summary ---
Author Organization [facility] Address [address] [place] [address] Care Team Providers Care Elementary Assistant Teacher Name Role Phone José Mejia MD Primary Care Provider + [phone] Allergies No known active allergies Medications naloxone [...] (twelve) hours around the clock. 05/10/20 Active bisacodyl (DULCOLAX) 10 MG suppositoryIndicati [...] Smokeless Tobacco: Never Tobacco Cessation:Counseling Given: No [facility] Utilities Answer Date Recorded In the past 12 months has th e electric, gas, oil, or water company [...] place to sleep or slept in a senior care (including now)? No 05/06/2024 Sex and Gender [...] 3:00 PM EST [facility] Visit [facility] [address] [place] [address] Taj Hall MD [address] [place] [address] [address] [place] [address] Health Maintenance Due Date Last Done Comments Hepatitis C Virus Screening 1979 HIV Screening 1992 Hepatitis B Vaccines (1 of 3 - 19+ 3-dose series) 1998 Colonoscopy 2024 Influenza Vaccine 05/16/2025 COVID-19 Vaccine (1 - 2023-2 5 season) 2025 DTaP/Tdap/Td Vaccines (2 - T d or Tdap) 05/04/2034 05/04/2024 Pneumococcal Vaccine: Pediat michael (0-5 Years) and At-Risk Patients (6 to 49 Years) Aged Out No longer eligible b ased on patient's age to complete this topic Medical Devices Implanted Type Area Export Freight Clerk Device Identifier Shelf Expiration Date Model / Serial / Lot 702-04-60g Shell Acetabular 60mm Hip Ch Tritanium Trdnt 2 G Sterl - [id number] Implanted:Qty : 1 on 05/06/2024 by Taj Hall MD at [facility] Joint Prosthesis Left: Hip [employer] DIV ST [id number] 01/29/2029 702-04-6 0G / / [id number] 723-10-36g Insert Acetabular 36mm 10d G Hip X3 Trdnt - [id number] Implanted:Qty : 1 on 05/06/2024 by Taj Hall MD at [facility] Joint Prosthesis Left: Hip [employer] GENI [id number] 04/05/2028 723-10-3 6G / / [id number] 6515-1149 Stem Femoral 114mm Pf Acld 2 V40 Purefix Ti 127d 7 50mm High - [id number] Implanted:Qty : 1 on 05/06/2024 by Taj Hall MD at [facility] Joint Prosthesis Left: Hip [employer] - DIV ST [id number] 12/17/2028 6721-073 7 / / [id number] 6570-0-136 Head Femoral +0mm Offset Taper 36mm Hip Blx D V40 Sterl - [id number] Implanted:Qty : 1 on 05/06/2024 by Taj Hall MD at [facility] Joint Prosthesis Left: Hip [employer] - DIV ST [id number] 11/27/2028 6570-0-1 36 / / [id number] 2504-2449 Screw Bone Trdnt 2 25mm 6.5mm Lp Hex Sterl - [id number] Implanted:Qty : 1 on 05/06/2024 by Taj Hall MD at [facility] Screw Left: Hip [employer] - DIV ST [id number] 10/02/2028 7030-652 5 / / [id number] 7181-9640 Screw Bone Trdnt 2 30mm 6.5mm Lp Hex Sterl - [id number] Implanted:Qty : 1 on 05/06/2024 by Taj Hall MD at [facility] Screw Left: Hip [employer] - DIV ST [id number] 12/26/2028 7030-653 0 / / [id number] Screw Bone Trdnt 2 25mm 6.5mm Lp Hex Sterl - [id number] Implanted:Qty : 1 on 05/06/2024 by Taj Hall MD at [facility] Screw Left: Hip [employer] - DIV ST [id number] 12/19/2028652 5 / / [id number] 214.736 Screw Bone Flthrd Rvrs Cut Flut 36mm Ss 4.5mm 6.5mm 1.75mm - [id number] Implanted:Qty : 1 on 05/07/2024 by Raul Pina MD at [facility] Screw Right: Patella [employer] - A STORM AN 214.736 / / 214.734 Screw Bone Flthrd Rvrs Cut Flut 34mm Ss 4.5mm 6.5mm 1.75mm - [id number] Implanted:Qty : 1 on 05/07/2024 by Raul Pina MD at [facility] Screw Right: Patella [employer] - A STORM AN 214.734 / / 219.91 Washer 10mm Orthopedic Ss 4.5mm Michelle Screw Nonst - [id number] Implanted:Qty : 1 on 05/07/2024 by Raul Pina MD at [facility] Washer/Nut Right: Patella [employer] - A STORM AN 219.91 / / 219.91 Washer 10mm Orthopedic Ss 4.5mm Michelle Screw Nonst - [id number] Implanted:Qty : 1 on 05/07/2024 by Raul Pina MD at [facility] Washer/Nut Right: Patella [employer] - A STORM AN 219.91 / / Explanted Type Area Export Freight Clerk Device Identifier Shelf Expiration Date Model / Serial / Lot [id number] Screw Bone Trdnt 2 35mm 6.5mm Lp Hex Sterl - [id number] Explanted:Qty : 1 on 05/06/2024 by Taj Hall MD at [facility] Screw Left: Hip [employer] - DIV ST [id number] 11/22/2028 4315-0586 / / [id number] [facility] Advance Directives * Full Code (Latest Code Status on File) Date Activated Date Inactivated Comments 05/06/2024 9:01 PM * Full Code Date Activated Date Inactivated Comments 05/04/2024 5:42 PM 05/06/2024 9:01 PM Care Teams Elementary Assistant Teacher Relationship Specialty Start Date End Date José Mejia MD [address] [place] [address] PCP - General Family Medicine 05/06/24
--- OUTSIDE RECORDS SUMMARY | 2025-07-17 09:58 | XMS_ITS | Encounter Summary ---
Author Organization [facility] Address [address] [place] [address] Care Team Providers Care Corporate Banking Officer Name Role Phone José Mejia MD Primary Care Provider + [phone] Encounter Details Date Type Department Care Team (Late st Contact Info) Description 06/14/2024 Scanned Document [facility] [address] [place] [address] Brooke Bolden [address] [facility] [address] [place] [address] Social History Tobacco Use Types Packs/Day Years Used Date Smoking Tobacco: Never Passive Smoke Exposure: Never Smokeless Tobacco: Never [facility] Utilities Answer Date Recorded In the past 12 months has [facility] electric, gas, oil, or water company [...] place to sleep or slept in a chcf (including now)? No 05/06/2024 Sex and Gender [...] 3:00 PM EST Office Visit [facility] [address] [place] [address] Taj Hall MD [address] [facility] [address] [place] [address] documented as of this encounter Visit Diagnoses Not on filedocumented in this encounter Care Teams Corporate Banking Officer Relationship Specialty Start Date End Date José Mejia MD [address] [place] [address] PCP - General Family Medicine 05/06/24 documented as of this encounter
--- OUTSIDE RECORDS SUMMARY | 2025-07-17 09:58 | XMS_ITS | Encounter Summary ---
Author Organization [facility] Address [address] [place] [address] Care Team Providers Care Machine Presser Name Role Phone José Mejia MD Primary Care Provider + [phone] Encounter Details Date Type Department Care Team (Late st Contact Info) Description 09/24/2024 Scanned Document [facility] [address] [place] [id number] [place] [address] [address] Social History Tobacco Use Types Packs/Day Years Used Date Smoking Tobacco: Never Passive Smoke Exposure: Never Smokeless Tobacco: Never [facility] Utilities Answer Date Recorded In the past 12 months has [employer] electric, gas, oil, or water company threatened [...] place to sleep or slept in a detention (including now)? No 05/06/2024 Sex and Gender [...] PM EST Office Visit [facility] [address] [place] [address] Taj Hall MD [address] [place] [address] [address] [place] [address] documented as of this encounter Visit Diagnoses Not on filedocumented in this encounter Care Teams Machine Presser Relationship Specialty Start Date End Date José Mejia MD [address] [place] [address] PCP - General Family Medicine 05/06/24 documented as of this encounter
[2025-07-17 10:28] LABS: MANUAL DIFF FLAG NO
[2025-07-17 10:46] LABS: Hematocrit 45.3 % (42.0-52.0); Hemoglobin 15.1 g/dl (14.0-18.0); Imm Gran Abs Auto 0.01 X10*3/uL (0.00-0.03); Imm Gran Pct Auto 0.2 % (0.0-0.4); Lymphocytes Absolute Auto 1.9 X10*3/uL (1.2-4.9); Mean Corpuscular HGB Conc 33.3 g/dl (31.0-36.0); Mean Corpuscular Hemoglobin 29.4 pg (27.0-33.0); Mean Corpuscular Volume 88.3 fL (80.0-98.0); NRBC Abs Auto 0.000 X10*3/uL (0.0-0.012); NRBC Pct Auto 0.0 /100WBC (0.0-0.2); Platelet Count 189 X10*3/uL (160-400); Red Blood Count 5.13 X10*6/uL (4.60-5.80); White Blood Count 4.9 X10*3/uL (4.8-10.8)
[2025-07-17 11:29] LABS: Alanine Aminotransferase 28 U/L (0-40); Albumin Level 4.5 g/dL (3.5-5.0); Alkaline Phosphatase 54 U/L (39-117); Anion Gap 10 (12-20); Aspartate Amino Transferase 26 U/L (5-37); Blood Urea Nitrogen 27 mg/dL (9-16); Calcium 9.0 mg/dL (8.4-10.2); Carbon Dioxide 22 mmol/L (22-29); Chloride 112 mmol/L (96-108); Cholesterol 251 mg/dL (<200); Estimated Glomerular Filt Rate > 60; HDL Cholesterol 51 mg/dL (>40); Potassium 4.4 mmol/L (3.3-5.1); Sodium 140 mmol/L (135-145); Total Protein 6.9 g/dL (6.5-8.0); Triglycerides 103 mg/dL (<150)
== END 2025-07-17 09:12 | disposition home or self-care (01) ==
LOC: HO.HMGCLDS 09:11
PROVIDERS: PCP Nurse Practitioner Family; Visit Provider Nurse Practitioner Family
DX: Z12.11 Encounter for screening for malignant neoplasm of colon (principal); E78.5 Hyperlipidemia, unspecified; D72.819 Decreased white blood cell count, unspecified
CPT/HCPCS: 36415; 80053; 80061; 85025; 96127

== ENCOUNTER 2025-07-17 15:52 | Outpatient (AMB) | payer OTHER, SELFPAY ==
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
[2025-07-17 16:10] VITALS: BP 124/74; PULSE 74; RESP 16; TEMP 36.6; O2SAT 98; BMI 26.3
== END 2025-07-17 17:09 | disposition home or self-care (01) ==
LOC: HO.HMCC 15:53
PROVIDERS: PCP Nurse Practitioner Family; Visit Provider Nurse Practitioner Family
DX: E78.5 Hyperlipidemia, unspecified (principal); Z12.11 Encounter for screening for malignant neoplasm of colon; Z00.00 Encounter for general adult medical examination without abnormal findings

== ENCOUNTER 2025-09-09 07:33 | Day surgery (SDC) | payer OTHER, SELFPAY ==
--- OUTSIDE RECORDS SUMMARY | 2025-08-05 19:03 | XMS_ITS | Encounter Summary ---
Author Organization [facility] Address [address] [place] [address] Care Team Providers Care Project Assistant Name Role Phone José Mejia MD Primary Care Provider + [phone] Encounter Details Date Type Department Care Team (Late st Contact Info) Description 06/14/2024 Scanned Document [facility] [address] [place] [address] Brooke Bolden [address] [facility] [address] [place] [address] Social History Tobacco Use Types Packs/Day Years Used Date Smoking Tobacco: Never Passive Smoke Exposure: Never Smokeless Tobacco: Never [facility] Utilities Answer Date Recorded In the past 12 months has [facility] electric, gas, oil, or water company [...] place to sleep or slept in a mcc (including now)? No 05/06/2024 Sex and Gender [...] 3:00 PM EST Office Visit [facility] [address] [place] [address] Taj Hall MD [address] [facility] [address] [place] [address] documented as of this encounter Visit Diagnoses Not on filedocumented in this encounter Care Teams Project Assistant Relationship Specialty Start Date End Date José Mejia MD [address] [place] [address] PCP - General Family Medicine 05/06/24 documented as of this encounter
--- OUTSIDE RECORDS SUMMARY | 2025-08-05 19:03 | XMS_ITS | Clinical Summary ---
Author Organization [facility] Address [address] [place] [address] Care Team Providers Care Card Game Operator Name Role Phone José Mejia MD Primary Care Provider + [phone] Allergies No known active allergies Medications naloxone [...] Never Tobacco Cessation:Counseling Given: No [facility] Utilities Answer [...] place to sleep or slept in a assisted (including now)? No 05/06/2024 Sex and Gender [...] PM EST Office Visit [facility] [address] [place] [address] Taj Hall MD [address] [place] [address] [address] [place] [address] Health Maintenance Due Date Last Done Comments [...] this topic Medical Devices Implanted Type Area Isotope Technologist Device Identifier Shelf Expiration Date Model / Serial / Lot 702-04-60g Shell Acetabular 60mm Hip Ch Tritanium Trdnt 2 G Sterl - [id number] Implanted:Qty : 1 on 05/06/2024 by Taj Hall MD at [facility] Joint Prosthesis Left: Hip [employer] DIV STRY [id number] 01/29/2029 702-04-6 0G / / [id number] 723-10-36g Insert Acetabular 36mm 10d G Hip X3 Trdnt - [id number] Implanted:Qty : 1 on 05/06/2024 by Taj Hall MD at [facility] Joint Prosthesis Left: Hip [employer] GENI [id number] 04/05/2028 723-10-3 6G / / [id number] 1792-0899 Stem Femoral 114mm Pf Acld 2 V40 Purefix Ti 127d 7 50mm High - [id number] Implanted:Qty : 1 on 05/06/2024 by Taj Hall MD at [facility] Joint Prosthesis Left: Hip [employer] DIV STRY [id number] 12/17/2028 6721-073 7 / / [id number] 6570-0-136 Head Femoral +0mm Offset Taper 36mm Hip Blx D V40 Sterl - [id number] Implanted:Qty : 1 on 05/06/2024 by Taj Hall MD at [facility] Joint Prosthesis Left: Hip [employer] DIV STRY [id number] 11/27/2028 6570-0-1 36 / / [id number] 0064-2324 Screw Bone Trdnt 2 25mm 6.5mm Lp Hex Sterl - [id number] Implanted:Qty : 1 on 05/06/2024 by Taj Hall MD at [facility] Screw Left: Hip [employer] DIV STRY [id number] 10/02/2028 7030-652 5 / / [id number] Screw Bone Trdnt 2 30mm 6.5mm Lp Hex Sterl - [id number] Implanted:Qty : 1 on 05/06/2024 by Taj Hall MD at [facility] Screw Left: Hip [employer] DIV STRY [id number] 12/26/2028 7030-653 0 / / [id number] Screw Bone Trdnt 2 25mm 6.5mm Lp Hex Sterl - [id number] Implanted:Qty : 1 on 05/06/2024 by Taj Hall MD at [facility] Screw Left: Hip [employer] DIV STRY [id number] 12/19/202830-652 5 / / [id number] 214.736 Screw Bone Flthrd Rvrs Cut Flut 36mm Ss 4.5mm 6.5mm 1.75mm - [id number] Implanted:Qty : 1 on 05/07/2024 by Raul Pina MD at [facility] Screw Right: Patella [employer] - A STORM AND 214.736 / / 214.734 Screw Bone Flthrd Rvrs Cut Flut 34mm Ss 4.5mm 6.5mm 1.75mm - [id number] Implanted:Qty : 1 on 05/07/2024 by Raul Pina MD at [facility] Screw Right: Patella [employer] - A STORM AND 214.734 / / 219.91 Washer 10mm Orthopedic Ss 4.5mm Michelle Screw Nonst - [id number] Implanted:Qty : 1 on 05/07/2024 by Raul Pina MD at [facility] Washer/Nut Right: Patella [employer] - A STORM AND 219.91 / / 219.91 Washer 10mm Orthopedic Ss 4.5mm Michelle Screw Nonst - [id number] Implanted:Qty : 1 on 05/07/2024 by Raul Pina MD at [facility] Washer/Nut Right: Patella [employer] - A STORM AND 219.91 / / Explanted Type Area Isotope Technologist Device Identifier Shelf Expiration Date Model / Serial / Lot 7217-1704 Screw Bone Trdnt 2 35mm 6.5mm Lp Hex Sterl - [id number] Explanted:Qty : 1 on 05/06/2024 by Taj Hall MD at [facility] Screw Left: Hip [employer] [id number] 11/22/2028 2472-6605 / / [id number] Insurance [facility] [employer] Advance Directives * Full Code (Latest Code Status on File) Date Activated Date Inactivated Comments 05/06/2024 9:01 PM * Full Code Date Activated Date Inactivated Comments 05/04/2024 5:42 PM 05/06/2024 9:01 PM Care Teams Card Game Operator Relationship Specialty Start Date End Date José Mejia MD [address] [place] [address] PCP - General Family Medicine 05/06/24
--- OUTSIDE RECORDS SUMMARY | 2025-08-05 19:04 | XMS_ITS | Encounter Summary ---
Author Organization [facility] Address [address] [place] [address] Care Team Providers Care Licensed Mortician Name Role Phone José Mejia MD Primary Care Provider + [phone] Encounter Details Date Type Department Care Team (Late st Contact Info) Description 09/24/2024 Scanned Document [facility] [address] [place] [id number] [place] [address] [address] Social History Tobacco Use Types Packs/Day Years Used Date Smoking Tobacco: Never Passive Smoke Exposure: Never Smokeless Tobacco: Never [facility] Utilities Answer Date Recorded In the past 12 months has [employer] electric, gas, oil, or water company threatened [...] 3:00 PM EST Office Visit [facility] [address] [place] [address] Taj Hall MD [address] [place] [address] [address] [place] [address] documented as of this encounter Visit Diagnoses Not on filedocumented in this encounter Care Teams Licensed Mortician Relationship Specialty Start Date End Date José Mejia MD [address] [place] [address] PCP - General Family Medicine 05/06/24 documented as of this encounter
--- OUTSIDE RECORDS SUMMARY | 2025-08-05 19:04 | XMS_ITS | Clinical Summary ---
Author Organization [facility] Address [address] [facility] [address] [place] [address] Phone Care Team Providers Care Auxiliary Plant Operator Name Role Phone José Mejia NP Primary [...] Active ferrous sulfate 325 mg (65 mg pilot station iron) tablet Take 325 mg by mouth [...] file Medical Devices Not on file Insurance [employer] PL[employer] PPO [employer] PPO [employer]US PPO [employer]US PPO [employer] GIC PLUS PPO [employer] GIC PLUS PPO [employer] GIC PLUS PPO [place] [id number] Care Teams Auxiliary Plant Operator Relationship Specialty Start Date End Date José Mejia NP [address] [facility] [place] [address] PCP - General Nurse Practitioner 05/16/24 Additional Source Comments The information contained in this document represents components of the legal health record. It is not the complete legal health record.[facility]
--- NOTE | 2025-09-09 07:43 | MHC.SHP ---
Pre-Procedural Eval Section A - 24 Hr Update-Section A only Date of Service: 09/09/25 Section B - Complete if H&P > 30 days Chief Complaint: screening Relevant Family History (Specify if Yes): No Relevant Social History: Other (specify) Present Medications: see Short Stay Collaborative assessment Medical History: Significant History (Patellar fracture Closed displaced articular fracture of head of femur Laceration of right index finger Pneumomediastinum Rib fracture Right patella fracture Hip fracture, left Finger laceration Facial laceration) History of Previous Operations: Relevant previous surgery/procedure and date(s) ( History of total left hip replacement) Allergies: Allergies Allergy/AdvReac Type Severity Reaction Status Date / Time No Known Allergies Allergy Verified 07/17/25 16:13 Review of Systems Sugical H&P ROS: Negative: Constitution, Cardiovascular, Respiratory, Neurological, Psychiatric, Hem-Onc, Allergic/Immunologic, Gastrointestinal, Genitourinary, Musculoskeletal, Integumentary, Endocrine and Eyes/Ears/Nose/Throat Exam Surgical H&P Exam: Normal: HEENT, Normal: Heart, Normal: Lungs, Normal: Extremities, Normal: Abdomen, Normal: Skin and Normal: Neurological Plan Diagnosis/Plan: Unchanged I have reviewed the history and physical and performed a pertinent physical examination on my patient. No changes have occurred unless specified. Time Spent With Patient Time: Total time managing care of this patient today ____ minutes.
[2025-09-09] MEDS: Lactated Ringers 1,000 ML 100 ML IVCONT (08:04)
[2025-09-09 08:05] VITALS: BP 127/80; PULSE 51; RESP 15; TEMP 36.4; O2SAT 98; BMI 26.5
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
--- NOTE | 2025-09-09 09:04 | HO.OPN-COLON ---
Colonoscopy Operative Note Operative Note Date of Service: 09/09/25 Narrative: Operative Information Procedure Description: Colonoscopy Indication: screening Anesthesia: MAC COLONOSCOPY Instrument: Olympus variable stiffness pediatric scope 190L Colonoscopy Monitoring: Vital signs and clinical assessment, continuous EKG monitoring, Pulse oximetry, Carbon Dioxide monitoring and blood pressure monitoring were done throughout the procedure. Colon withdrawal time was 12 minutes. Procedure: The patient was placed in the left lateral decubitis position and pre-procedure medications were administered. After a digital rectal examination of the ano-rectum, the video colonoscope was inserted into the rectum and advanced through the colon to the cecum/TI. The colonoscope was slowly withdrawn in a retrograde panoramic fashion and the colon mucosa was carefully examined including a retroflexed view of the rectum. Findings and interventions are described below. Procedure Difficulty: easy Findings: Terminal Ileum-normal Cecum:normal Ascending Colon: 10 mm sessile polyp with fecal cap noted, lifted with eleview and removed with cold snare Transverse Colon -normal Descending Colon:normal Sigmoid Colon: normal Rectum: Retroflexion with small internal hemorrhoids seen, grade I Anorectum - normal Intervention: cold snare and eleview injection Colon preparation: [place] Bowel Preparation Scale Right colon; 2 Transverse colon: 2 Left colon; 2 (0 = Unprepared colon segment with mucosa not seen due to solid stool that cannot be cleared. 1 = Portion of mucosa of the colon segment seen, but other areas of the colon segment not well seen due to staining, residual stool and/or opaque liquid. 2 = Minor amount of residual staining, small fragments of stool and/or opaque liquid, but mucosa of colon segment seen well. 3 = Entire mucosa of colon segment seen well with no residual staining, small fragments of stool or opaque liquid) Impression and Post Procedure Diagnosis: colon polyp x 1 internal hemorrhoids Plan: High fiber diet leaflet Avoid straining at stool, epsom salts and sitz bath, anusol supps or cream Repeat Colonoscopy in 5 years due to polyp or earlier if clinically indicated Above findings were reviewed with the patient and relevant handouts were provided if indicated.
[2025-09-09 09:08] VITALS: BP 122/84; PULSE 56; RESP 12; TEMP 36.1; O2SAT 99
[2025-09-09 09:23] VITALS: BP 137/89; PULSE 52; RESP 14; TEMP 36.1; O2SAT 100
== END 2025-09-09 09:48 | disposition home or self-care (01) ==
PROVIDERS: PCP Nurse Practitioner Family; Visit Provider Internal Medicine Gastroenterology
PROC: 0DJD8ZZ Inspection of Lower Intestinal Tract, Via Natural or Artificial Opening Endoscopic (ICD-10-PCS; CPT 45378; principal; 2025-09-09 09:10)
DX: Z12.11 Encounter for screening for malignant neoplasm of colon (principal); K64.0 First degree hemorrhoids; D12.2 Benign neoplasm of ascending colon
CPT/HCPCS: 45385; 45381; 88305; J2704

== ENCOUNTER → 2025-09-09 07:33 | Outpatient (BNV) | payer OTHER, SELFPAY | PROVIDERS: PCP Nurse Practitioner Family; Visit Provider Internal Medicine Gastroenterology | DX: Z12.11 Encounter for screening for malignant neoplasm of colon (principal); K63.5 Polyp of colon; K64.0 First degree hemorrhoids | CPT/HCPCS: 45385 ==